=== PATIENT | female | born 1980 | race Caucasian/White ===

== ENCOUNTER 2017-02-05 17:02 | Emergency (ER) | payer BC ==
[2017-02-05 17:14] VITALS: RESP 18
--- NOTE | 2017-02-05 17:56 | ED ---
General Adult HPI - General Chief complaint: Recheck/Abnormal Lab/Rx Stated complaint: Blurred Vision/Weight Loss Time Seen by Provider: 02/05/17 17:48 Source: patient, RN notes reviewed Mode of arrival: ambulatory Limitations: no limitations - History of Present Illness Initial comments: 37-year-old female presents to the emergency department with a chief complaint of hyperglycemia. Patient states her last week she's been drinking a lot of water she's been urinating a lot she's noticed some blurred vision. She states that she went to an urgent care and they found that she had a high glucose and they sent her here. Patient denies any history of diabetes any health concerns any family history of diabetes. Patient states that her vision just seems very blurred and off and she normally has no issues with vision in this happened over the last week and this was very concerning to her. Patient denies any fever chills cough cold. Patient denies any nausea or vomiting. Patient denies any abdominal pain. Patient denies any recent fever, chills, shortness of breath, chest pain, back pain, abdominal pain, nausea vomiting, numbness or tingling, dysuria or hematuria, constipation or diarrhea, headaches or visual changes, or any other current symptoms. - Related Data Previous Rx's Medication Instructions Recorded metFORMIN HCL [Glucophage Xr] 500 mg PO DAILY #10 tab.er.24h 02/05/17 Allergies Allergy/AdvReac Type Severity Reaction Status Date / Time No Known Allergies Allergy Verified 02/05/17 17:30 Review of Systems ROS Statement: Those systems with pertinent positive or pertinent negative responses have been documented in the HPI. ROS Other: All systems not noted in ROS Statement are negative. Past Medical History Past Medical History: No Reported History History of Any Multi-Drug Resistant Organisms: None Reported Past Surgical History: No Surgical Hx Reported Past Psychological History: No Psychological Hx Reported Smoking Status: Never smoker Past Alcohol Use History: None Reported Past Drug Use History: None Reported General Exam Limitations: no limitations General appearance: alert, in no apparent distress Head exam: Present: atraumatic, normocephalic, normal inspection Eye exam: Present: normal appearance, PERRL, EOMI. Absent: scleral icterus, conjunctival injection, periorbital swelling ENT exam: Present: normal exam, mucous membranes moist Neck exam: Present: normal inspection. Absent: tenderness, meningismus, lymphadenopathy Respiratory exam: Present: normal lung sounds bilaterally. Absent: respiratory distress, wheezes, rales, rhonchi, stridor Cardiovascular Exam: Present: regular rate, normal rhythm, normal heart sounds. Absent: systolic murmur, diastolic murmur, rubs, gallop, clicks Extremities exam: Present: normal inspection, full ROM, normal capillary refill. Absent: tenderness, pedal edema, joint swelling, calf tenderness Back exam: Present: normal inspection Neurological exam: Present: alert, oriented X3 Psychiatric exam: Present: normal affect, normal mood Skin exam: Present: warm, dry, intact, normal color. Absent: rash Course Vital Signs 02/05/17 17:09 Temperature 98.5 F Pulse Rate 69 Respiratory 18 Rate Blood Pressure 113/61 O2 Sat by Pulse 100 Oximetry Medical Decision Making - Medical Decision Making 37 yo female presents to the ER with cc of hyperglycemia. This time patient is found to have hyperglycemia. Pending hemoglobin A1c. At this time we discussed the patient does most likely suffer from diabetes. We discussed or blurred vision is most likely due to the elevated glucose that she's had at least the last week if not longer. We did discuss that she needs to follow-up with her family care doctor for continued evaluation to determine type of diabetes and continued treatment for. We will start her on metformin due to age of the patient more suspicion for type 2 diabetes we discussed however this could be type I and swelling to follow-up with determine her continued treatment and care. The patient stated that she understood and she is in agreement this plan. Glucose has come down to 306 here in the emergency department. This time the patient will be discharged. - Lab Data Result diagrams: 02/05/17 19:10 02/05/17 19:10 Lab Results 02/05/17 02/05/17 02/05/17 Range/Units 19:10 19:10 19:10 WBC 6.9 (3.8-10.6) k/uL RBC 4.26 (3.80-5.40) m/uL Hgb 13.1 (11.4-16.0) gm/dL Hct 38.4 (34.0-46.0) % MCV 90.0 (80.0-100.0) fL MCH 30.7 (25.0-35.0) pg MCHC 34.1 (31.0-37.0) g/dL RDW 12.3 (11.5-15.5) % Plt Count 219 (150-450) k/uL Neutrophils % 57 % Lymphocytes % 34 % Monocytes % 5 % Eosinophils % 1 % Basophils % 1 % Neutrophils # 3.9 (1.3-7.7) k/uL Lymphocytes # 2.3 (1.0-4.8) k/uL Monocytes # 0.4 (0-1.0) k/uL Eosinophils # 0.1 (0-0.7) k/uL Basophils # 0.1 (0-0.2) k/uL PT (9.0-12.0) sec INR (<1.2) APTT (22.0-30.0) sec Sodium 132 L (137-145) mmol/L Potassium 4.7 (3.5-5.1) mmol/L Chloride 95 L (98-107) mmol/L Carbon Dioxide 26 (22-30) mmol/L Anion Gap 11 mmol/L BUN 14 (7-17) mg/dL Creatinine 0.80 (0.52-1.04) mg/dL Est GFR (MDRD) Af Amer >60 (>60 ml/min/1.73 sqM) Est GFR (MDRD) Non-Af >60 (>60 ml/min/1.73 sqM) Glucose 467 H* (74-99) mg/dL POC Glucose (mg/dL) (75-99) mg/dL POC Glu Compound Coating Machine Offbearer ID Plasma Lactic Acid Rafael 1.1 (0.7-2.0) mmol/L Calcium 9.8 (8.4-10.2) mg/dL Phosphorus 4.1 (2.5-4.5) mg/dL Magnesium 1.9 (1.6-2.3) mg/dL Total Bilirubin 0.5 (0.2-1.3) mg/dL AST 20 (14-36) U/L ALT 44 (9-52) U/L Alkaline Phosphatase 59 (38-126) U/L Total Protein 6.6 (6.3-8.2) g/dL Albumin 4.0 (3.5-5.0) g/dL Amylase 40 (30-110) U/L Lipase 140 (23-300) U/L Urine Color Urine Appearance (Clear) Urine pH (5.0-8.0) Ur Specific [place] (1.001-1.035) Urine Protein (Negative) Urine Glucose (UA) (Negative) Urine Ketones (Negative) Urine Blood (Negative) Urine Nitrite (Negative) Urine Bilirubin (Negative) Urine Urobilinogen (<2.0) mg/dL Ur Leukocyte Esterase (Negative) Urine HCG, Qual (Not Detectd) Acetone, Qual (Negative) 02/05/17 02/05/17 02/05/17 Range/Units 19:10 19:10 19:17 WBC (3.8-10.6) k/uL RBC (3.80-5.40) m/uL Hgb (11.4-16.0) gm/dL Hct (34.0-46.0) % MCV (80.0-100.0) fL MCH (25.0-35.0) pg MCHC (31.0-37.0) g/dL RDW (11.5-15.5) % Plt Count (150-450) k/uL Neutrophils % % Lymphocytes % % Monocytes % % Eosinophils % % Basophils % % Neutrophils # (1.3-7.7) k/uL Lymphocytes # (1.0-4.8) k/uL Monocytes # (0-1.0) k/uL Eosinophils # (0-0.7) k/uL Basophils # (0-0.2) k/uL PT 9.7 (9.0-12.0) sec INR 0.9 (<1.2) APTT 20.0 L (22.0-30.0) sec Sodium (137-145) mmol/L Potassium (3.5-5.1) mmol/L Chloride (98-107) mmol/L Carbon Dioxide (22-30) mmol/L Anion Gap mmol/L BUN (7-17) mg/dL Creatinine (0.52-1.04) mg/dL Est GFR (MDRD) Af Amer (>60 ml/min/1.73 sqM) Est GFR (MDRD) Non-Af (>60 ml/min/1.73 sqM) Glucose (74-99) mg/dL POC Glucose (mg/dL) (75-99) mg/dL POC Glu Compound Coating Machine Offbearer ID Plasma Lactic Acid Rafael (0.7-2.0) mmol/L Calcium (8.4-10.2) mg/dL Phosphorus (2.5-4.5) mg/dL Magnesium (1.6-2.3) mg/dL Total Bilirubin (0.2-1.3) mg/dL AST (14-36) U/L ALT (9-52) U/L Alkaline Phosphatase (38-126) U/L Total Protein (6.3-8.2) g/dL Albumin (3.5-5.0) g/dL Amylase (30-110) U/L Lipase (23-300) U/L Urine Color Urine Appearance (Clear) Urine pH (5.0-8.0) Ur Specific [place] (1.001-1.035) Urine Protein (Negative) Urine Glucose (UA) (Negative) Urine Ketones (Negative) Urine Blood (Negative) Urine Nitrite (Negative) Urine Bilirubin (Negative) Urine Urobilinogen (<2.0) mg/dL Ur Leukocyte Esterase (Negative) Urine HCG, Qual Not Detected (Not Detectd) Acetone, Qual Negative (Negative) 02/05/17 02/05/17 02/05/17 Range/Units 19:17 19:18 20:31 WBC (3.8-10.6) k/uL RBC (3.80-5.40) m/uL Hgb (11.4-16.0) gm/dL Hct (34.0-46.0) % MCV (80.0-100.0) fL MCH (25.0-35.0) pg MCHC (31.0-37.0) g/dL RDW (11.5-15.5) % Plt Count (150-450) k/uL Neutrophils % % Lymphocytes % % Monocytes % % Eosinophils % % Basophils % % Neutrophils # (1.3-7.7) k/uL Lymphocytes # (1.0-4.8) k/uL Monocytes # (0-1.0) k/uL Eosinophils # (0-0.7) k/uL Basophils # (0-0.2) k/uL PT (9.0-12.0) sec INR (<1.2) APTT (22.0-30.0) sec Sodium (137-145) mmol/L Potassium (3.5-5.1) mmol/L Chloride (98-107) mmol/L Carbon Dioxide (22-30) mmol/L Anion Gap mmol/L BUN (7-17) mg/dL Creatinine (0.52-1.04) mg/dL Est GFR (MDRD) Af Amer (>60 ml/min/1.73 sqM) Est GFR (MDRD) Non-Af (>60 ml/min/1.73 sqM) Glucose (74-99) mg/dL POC Glucose (mg/dL) 437 H 302 H (75-99) mg/dL POC Glu Compound Coating Machine Offbearer ID TeRanda Alaina Plasma Lactic Acid Rafael (0.7-2.0) mmol/L Calcium (8.4-10.2) mg/dL Phosphorus (2.5-4.5) mg/dL Magnesium (1.6-2.3) mg/dL Total Bilirubin (0.2-1.3) mg/dL AST (14-36) U/L ALT (9-52) U/L Alkaline Phosphatase (38-126) U/L Total Protein (6.3-8.2) g/dL Albumin (3.5-5.0) g/dL Amylase (30-110) U/L Lipase (23-300) U/L Urine Color Light Yellow Urine Appearance Clear (Clear) Urine pH 6.0 (5.0-8.0) Ur Specific [place] 1.031 (1.001-1.035) Urine Protein Negative (Negative) Urine Glucose (UA) 4+ H (Negative) Urine Ketones 1+ H (Negative) Urine Blood Negative (Negative) Urine Nitrite Negative (Negative) Urine Bilirubin Negative (Negative) Urine Urobilinogen <2.0 (<2.0) mg/dL Ur Leukocyte Esterase Negative (Negative) Urine HCG, Qual (Not Detectd) Acetone, Qual (Negative) Disposition Clinical Impression: Hyperglycemia, Blurred vision Disposition: HOME SELF-CARE Condition: Stable Instructions: Diabetic Hyperglycemia (ED) Additional Instructions: Please use medication as discussed. Please follow up with family doctor if symptoms have not improved over the next two days. Please return to the emergency room if your symptoms increase or worsen or for any other concerns. Prescriptions: metFORMIN HCL [Glucophage Xr] 500 mg PO DAILY #10 tab.er.24h Referrals: Leslie Carey MD [REFERRING] - 1-2 days Time of Disposition: 21:08
[2017-02-05] MEDS ORDERED: SODIUM CHLORIDE 0.9% 1,000 ML IV STA (17:57)
[2017-02-05 19:19] LABS: Basophils # (A) 0.1 k/uL (0-0.2); Basophils % (A) 1 %; CH 30.5; Eosinophils # (A) 0.1 k/uL (0-0.7); Eosinophils % (A) 1 %; HCT 38.4 % (34.0-46.0); HGB 13.1 gm/dL (11.4-16.0); Luc # (Auto) 0.12; Luc % (Auto) 2; Lymphocytes # (A) 2.3 k/uL (1.0-4.8); Lymphocytes % (A) 34 %; MCH 30.7 pg (25.0-35.0); MCHC 34.1 g/dL (31.0-37.0); Mean Platelet Volume 7.7; Monocytes # (A) 0.4 k/uL (0-1.0); Monocytes % (A) 5 %; Neutrophils # (A) 3.9 k/uL (1.3-7.7); Neutrophils % (A) 57 %; RBC 4.26 m/uL (3.80-5.40); RDW 12.3 % (11.5-15.5); WBC 6.9 k/uL (3.8-10.6); WBC (Perox) 7.44
[2017-02-05 19:23] LABS: Glucose,Whole Blood 437 mg/dL (75-99)
[2017-02-05 19:24] LABS: Appearance,Urine Clear (Clear); Bilirubin,Urine Negative (Negative); Glucose,Urine (UA) 4+ (Negative); Ketones,Urine 1+ (Negative); Leukocyte Esterase,Urine Negative (Negative); Nitrite,Urine Negative (Negative); Protein,Urine Negative (Negative); Specific Gravity,Urine 1.031 (1.001-1.035); UA Billing (MACRO vs. MICRO) CHEM; Urobilinogen,Urine <2.0 mg/dL (<2.0)
[2017-02-05 19:31] LABS: ALT 44 U/L (9-52); AST 20 U/L (14-36); Alkaline Phosphatase 59 U/L (38-126); Amylase 40 U/L (30-110); Anion Gap 11 mmol/L; Blood Urea Nitrogen 14 mg/dL (7-17); Calcium 9.8 mg/dL (8.4-10.2); Carbon Dioxide 26 mmol/L (22-30); Chloride 95 mmol/L (98-107); Magnesium 1.9 mg/dL (1.6-2.3); Non-African American GFR(MDRD) >60 (>60 ml/min/1.73 sqM); Phosphorus 4.1 mg/dL (2.5-4.5); Potassium 4.7 mmol/L (3.5-5.1); Sodium 132 mmol/L (137-145); Total Bilirubin 0.5 mg/dL (0.2-1.3); Total Protein 6.6 g/dL (6.3-8.2)
[2017-02-05 19:35] LABS: Glucose 467 mg/dL (74-99)
[2017-02-05 19:48] LABS: INR 0.9 (<1.2); Prothrombin Time 9.7 sec (9.0-12.0)
[2017-02-05 20:32] LABS: Glucose,Whole Blood 302 mg/dL (75-99)
[2017-02-05] MEDS ORDERED: metFORMIN 500 MG TAB PO STA (21:04)
[2017-02-06 01:10] VITALS: BP 118/60; PULSE 72; TEMP 98
== END 2017-02-05 21:35 | disposition home or self-care (01) ==
LOC: EC 17:02
DX: R73.9 Hyperglycemia, unspecified (principal)
CPT/HCPCS: 36415; 80053; 81003; 81025; 82009; 82150; 83036; 83605; 83690; 83735; 84100; 84681; 85025; 85610; 85730; 96360; 96361; 99283

== ENCOUNTER 2017-07-08 15:21 | Emergency (ER) | payer BC ==
[2017-07-08] MEDS ORDERED: TETRACAINE 0.5% OPHTH (PF) DROPS 4 ML BTL BOTH EYES STA (16:39)
[2017-07-08 17:32] LABS: Anion Gap 13 mmol/L; Blood Urea Nitrogen 23 mg/dL (7-17); Calcium 9.9 mg/dL (8.4-10.2); Carbon Dioxide 27 mmol/L (22-30); Chloride 102 mmol/L (98-107); Glucose 149 mg/dL (74-99); Potassium 4.6 mmol/L (3.5-5.1); Sodium 142 mmol/L (137-145)
[2017-07-08] MEDS ORDERED: INSULIN REGULAR 100 UNIT/ML VIAL SQ ONE (17:32)
--- NOTE | 2017-07-08 17:41 | ED ---
Eye Problem HPI - General Chief complaint: Eye Problems Stated complaint: blurry vision/diabetic Time Seen by Provider: 07/08/17 16:25 Source: patient Mode of arrival: ambulatory Limitations: no limitations - History of Present Illness Initial comments: 37-year-old female presenting with 5 days of third vision. Patient states it is been eating progressively worse the point that she is unable to read anything in front of her. She denies any headache, nausea vomiting, chest pain , diarrhea. Denies any focal weakness. Denies any fevers chills. Denies any thing like this happening before. Patient states she has a history of type 1 diabetes and that her sugars have been running high 300s this week. She states when her sugars get lower than 300 her eyesight worsens. She denies one eye being worse than other. Patient states she called primary care physician who instructed her to come to the emergency department. Denies any pain in her eyes. Denies trauma. - Related Data Home Medications Medication Instructions Recorded Confirmed HYDROcodone/APAP 5-325MG [[place] 1 - 2 tab PO HS PRN 07/08/17 07/08/17 5-325] Ibuprofen [Motrin] 800 mg PO TID PRN 07/08/17 07/08/17 Insulin Aspart [NovoLOG 5 - 10 unit SQ AC-TID 07/08/17 07/08/17 (formulary)] Insulin Glargine [Lantus] 45 unit SQ HS 07/08/17 07/08/17 Allergies Allergy/AdvReac Type Severity Reaction Status Date / Time No Known Allergies Allergy Verified 07/08/17 16:33 Review of Systems ROS Statement: Those systems with pertinent positive or pertinent negative responses have been documented in the HPI. Review of Systems Constitutional: Denies fever, chills Eyes: Positive change in vision, Denies pain Ears, nose, mouth, throat: Denies headaches, Denies sore throat Cardiovascular: Denies chest pain. Denies palpitations Respiratory: Denies shortness of breath, Denies cough Gastrointestinal: Denies abdominal pain. Denies nausea, vomiting, diarrhea. Genitourinary: Denies hematuria, Denies infections Musculoskeletal: Denies pain, Denies swelling Integumentary: Denies rash Neurological: Denies headache, focal weakness, focal numbness Psychiatric: Denies anxiety, Denies depression Hematologic/Lymphatic: Denies easy bleeding or bruising ROS Other: All systems not noted in ROS Statement are negative. 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 Atraumatic Eyes: PERRL. EOMI. No scleral icterus. No injected conjunctiva. Visual acuity: 20/40 (B/L. Right. Left). Visual pascal intact. IOP 15-right. 14-left. Neck: Full ROM Chest/Lungs: Clear to auscultation bilaterally. No wheezing, rhonchi, or rales Cardiac: Regular rate, rhythm. No murmurs or rubs Abdomen/GI: Soft, nontender, nondistended. No rebound, guarding, or rigidity. Musculoskeletal: Full ROM Skin: Warm, dry, intact Neurologic: A/Ox3, no weakness, no sensory deficit, no abnormal gait, no coordination deficit Limitations: no limitations Course Vital Signs 07/08/17 07/08/17 15:26 17:02 Temperature 98.0 F Pulse Rate 80 Respiratory 20 18 Rate Blood Pressure 110/63 O2 Sat by Pulse 98 Oximetry Medical Decision Making - Medical Decision Making 37 year old female presenting with worsening blurred vision. Initial exam the patient is awake, alert, no acute distress. VSS. bedside ocular ultrasound showed no evidence of retinal detachment or increased optic nerve diameter. CT head negative. BMP unremarkable. Spoke with Dr. Newby who states the patient can see him tomorrow in office. He will be in the [place] office in the morning and the [place] office in the afternoon. No further emergent workup is indicated. Discussed with patient who is agreeable to plan. She is currently stable for discharge and outpatient follow up. - Lab Data Result diagrams: 07/08/17 17:00 Lab Results 07/08/17 07/08/17 Range/Units 17:00 17:00 Sodium 142 (137-145) mmol/L Potassium 4.6 (3.5-5.1) mmol/L Chloride 102 (98-107) mmol/L Carbon Dioxide 27 (22-30) mmol/L Anion Gap 13 mmol/L BUN 23 H (7-17) mg/dL Creatinine 0.70 (0.52-1.04) mg/dL Est GFR (CKD-EPI)AfAm >90 (>60 ml/min/1.73 sqM) Est GFR (CKD-EPI)NonAf >90 (>60 ml/min/1.73 sqM) Glucose 149 H (74-99) mg/dL Calcium 9.9 (8.4-10.2) mg/dL HCG, Qual Not Detected Disposition Clinical Impression: Vision blurred Disposition: HOME SELF-CARE Condition: Good Additional Instructions: Dr. Newby-In this office in the morning Address: [address] [place] [id number] Hours:Opens 8:30AM Fri Dr. Newby-In this office in the afternoon Address: [address] [place] [id number] Hours:Opens 8AM Fri Is patient prescribed a controlled substance at d/c from ED?: No Referrals: Marcos Pittman DO [Primary Care Provider] - 1-2 days Solis Newby MD [STAFF PHYSICIAN] - 1-2 days
--- NOTE | 2017-07-08 19:15 | CT ---
EXAMINATION TYPE: CT brain wo con DATE OF EXAM: 07/08/2017 COMPARISON: NONE HISTORY: Blurry vision CT DLP: 820.7 mGycm. Automated Exposure Control for Dose Reduction was Utilized. TECHNIQUE: CT scan of the head is performed without contrast. FINDINGS: There is no acute intracranial hemorrhage, mass effect, or midline shift identified. The ventricles and sulci are within normal limits in size. The globes are intact and the visualized sin uses are clear. No flattening of the globes is seen posteriorly. No transtentorial or uncal herniatio n. No discrete pituitary mass impressing upon the optic chiasm. The globes are symmetric. IMPRESSION: 1. No acute intracranial process. 2. No CT evidence of intracranial hypertension or hypotension although this finding is better assesse d with MRI in this patient with papilledema.
[2017-07-08 20:13] VITALS: BP 127/80; PULSE 68; RESP 16; TEMP 98.4
== END 2017-07-08 20:00 | disposition home or self-care (01) ==
LOC: EC 15:21
DX: H53.8 Other visual disturbances (principal); E10.9 Type 1 diabetes mellitus without complications; Z79.4 Long term (current) use of insulin
CPT/HCPCS: 36415; 70450; 80048; 84703; 99284

== ENCOUNTER 2020-04-25 08:33 | Inpatient (IN) | payer BC ==
[2020-04-25] MEDS ORDERED: INSULIN REGULAR BOLUS (FROM DRIP BAG) IV ONE (08:36)
[2020-04-25] MEDS ORDERED: Potassium Replacement Protocol 1 EACH MISC MISCELLANE PRN (08:36)
[2020-04-25] MEDS ORDERED: Magnesium Replacement Protocol 1 EACH MISC MISCELLANE PRN (08:36)
[2020-04-25] MEDS ORDERED: SODIUM CHLORIDE 0.9% 2,000 ML IV ONE (08:38)
[2020-04-25] MEDS: SODIUM CHLORIDE 0.9% 1,000 ML IV SCH ×2 (08:57→15:33)
[2020-04-25 09:04] LABS: HCT 51.2 % (34.0-46.0); HGB 14.8 gm/dL (11.4-16.0); Hypochromasia Marked; MCHC 28.9 g/dL (31.0-37.0); MCV 117.6 fL (80.0-100.0); Macrocytosis Marked; Mean Platelet Volume 8.3; Platelet Count 294 k/uL (150-450); RBC 4.35 m/uL (3.80-5.40); RDW 12.6 % (11.5-15.5); WBC 15.7 k/uL (3.8-10.6)
--- NOTE | 2020-04-25 09:06 | ED ---
General Adult HPI - General Chief complaint: Altered Mental Status Stated complaint: DKA Time Seen by Provider: 04/25/20 08:33 Source: patient, EMS, RN notes reviewed, old records reviewed Mode of arrival: EMS Limitations: altered mental status, physical limitation - History of Present Illness Initial comments: This is a 40-year-old female who is a known diabetic. Patient's family had not heard from her chest for 2 days so they went over to check on her and she was completely unresponsive according to EMS when they arrived she was only responsive to painful stimuli with some groaning and moaning. Patient's heart rate was bradycardic in the 40s and no trauma was noted and it did not appear the patient had any trauma. According to EMS the blood sugar read high on their monitor and the patient felt extremely cold. Patient's blood pressure was normal on the way in. At this point time there is no further history is available. - Related Data Home Medications Medication Instructions Recorded Confirmed Insulin Glargine,Hum.rec.anlog 40 units SQ HS 04/25/20 04/25/20 [Asad Ta] Allergies Allergy/AdvReac Type Severity Reaction Status Date / Time No Known Allergies Allergy Verified 04/25/20 08:48 Review of Systems ROS Statement: Those systems with pertinent positive or pertinent negative responses have been documented in the HPI. ROS Other: All systems not noted in ROS Statement are negative. 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, wisdom teeth Past Psychological History: No Psychological Hx Reported Past Alcohol Use History: None Reported Past Drug Use History: None Reported - Past Family History Father Family Medical History: No Reported History Additional Family Medical History / Comment(s): Father is healthy Mother Family Medical History: No Reported History Additional Family Medical History / Comment(s): Mother is healthy General Exam - General Exam Comments Initial Comments: GENERAL: Patient is well-developed and well-nourished. Patient is only responsive with a groan to painful stimuli. ENT: Neck is soft and supple. No significant lymphadenopathy is noted. Oropharynx is clear. Moist mucous membranes. Neck has full range of motion without eliciting any pain. EYES: The sclera were anicteric and conjunctiva were pink and moist. Extraocular movements were intact and pupils were equal round and reactive to light. Eyelids were unremarkable. PULMONARY: Unlabored respirations. Good breath sounds bilaterally. No audible rales rhonchi or wheezing was noted. CARDIOVASCULAR: Patient is bradycardic at about 45 beats a minute Femoral pulses are equal bilaterally ABDOMEN: Soft and nontender with normal bowel sounds. SKIN: Skin is clear with no lesions or rashes and otherwise unremarkable. NEUROLOGIC: Patient is unresponsive except to painful stimuli and she only responds with the ground. Unable to do further neurologic assessment MUSCULOSKELETAL: Normal extremities with adequate strength and full range of motion. No lower extremity swelling or edema. No calf tenderness. LYMPHATICS: No significant lymphadenopathy is noted PSYCHIATRIC: Unable to assess Limitations: altered mental status, physical limitation Course Vital Signs 04/25/20 04/25/20 04/25/20 08:36 08:48 09:00 Temperature 84.6 F L 83.5 F L Pulse Rate 47 L 51 L 53 L Respiratory 26 H 26 H Rate Blood Pressure 126/76 74/38 73/32 O2 Sat by Pulse 96 Oximetry 04/25/20 04/25/20 04/25/20 09:01 09:14 09:23 Temperature 85.3 F L Pulse Rate 62 Respiratory 28 H 24 Rate Blood Pressure 79/40 83/52 O2 Sat by Pulse 98 Oximetry 04/25/20 04/25/20 04/25/20 09:30 09:50 10:10 Temperature 85.5 F L 86.0 F L 87.1 F L Pulse Rate 65 62 60 Respiratory 16 Rate Blood Pressure 107/62 88/53 85/56 O2 Sat by Pulse Oximetry 04/25/20 04/25/20 04/25/20 10:31 11:00 11:51 Temperature 88.2 F L 90.3 F L 93.9 F L Pulse Rate 61 67 75 Respiratory 20 20 16 Rate Blood Pressure 93/59 93/58 89/53 O2 Sat by Pulse 99 99 99 Oximetry 04/25/20 04/25/20 04/25/20 12:15 12:33 12:52 Temperature 95.5 F L 96.8 F L 97.7 F Pulse Rate 80 80 80 Respiratory 18 18 18 Rate Blood Pressure 85/44 84/42 86/45 O2 Sat by Pulse 100 100 Oximetry 04/25/20 13:26 Temperature 98.6 F Pulse Rate 90 Respiratory 18 Rate Blood Pressure 84/45 O2 Sat by Pulse 100 Oximetry Procedures - Intubation Sedative: Versed Paralytic: Succinylcholine Laryngoscope: Veliz Size: 3 ET Tube Size: 7.5 ET Tube Uncuffed: No Tube Secured Location: teeth Tube Placement Confirmation: visualized tube passing through cords, equal breath sounds bilaterally, no breath sounds over epigastrium, confirmation by capnometry Intubation Complications: none Medical Decision Making - Medical Decision Making EKG shows sinus bradycardia at 40 bpm TX interval is 202 QRS is 152 QTC intervals 554 QTC is 494. Patient has some slight ST segment elevation in inferior leads as well as precordial leads V4 through V6 indicative of Justin waves CT of the brain shows no acute normalities. Chest x-ray shows no acute abnormality however it does show good placement of ET tube and the OG tube needs to be pushed in a little further. There is intubated the patient Patient was given 3 L of fluid started on an insulin drip after a bolus of insulin. Patient was also given bicarb, bicarb drip. Patient is given tells and chloride for the high potassium. Patient was placed on a warming blanket with a bear hugger and given warm fluids and put on warm air from the ventilator. I spoke with Dr. Carver he agreed to admit the patient admitted the patient I wrote admitting orders. I spoke with Dr. Zelaya he agreed to admit the patient admitted the patient to the ICU - Lab Data Result diagrams: 04/27/20 04:44 04/27/20 04:44 Lab Results 04/25/20 04/25/20 04/25/20 Range/Units 08:47 08:47 08:47 WBC 15.7 H (3.8-10.6) k/uL RBC 4.35 (3.80-5.40) m/uL Hgb 14.8 (11.4-16.0) gm/dL Hct 51.2 H (34.0-46.0) % MCV 117.6 H (80.0-100.0) fL MCH 34.0 (25.0-35.0) pg MCHC 28.9 L (31.0-37.0) g/dL RDW 12.6 (11.5-15.5) % Plt Count 294 (150-450) k/uL MPV 8.3 Neutrophils % Not Reportable Neutrophils % (Manual) 75 % Band Neuts % (Manual) 3 % Lymphocytes % Not Reportable Lymphocytes % (Manual) 14 % Monocytes % Not Reportable Monocytes % (Manual) 8 % Eosinophils % Not Reportable Basophils % Not Reportable Metamyelocytes % 1 % Neutrophils # Not Reportable Neutrophils # (Manual) 12.20 H (1.3-7.7) k/uL Lymphocytes # Not Reportable Lymphocytes # (Manual) 2.20 (1.0-4.8) k/uL Monocytes # Not Reportable Monocytes # (Manual) 1.26 H (0-1.0) k/uL Eosinophils # Not Reportable Basophils # Not Reportable Metamyelocytes # (Man) 0.16 H (0) k/uL Nucleated RBCs 0 (0-0) /100 WBC Manual Slide Review Performed Hypochromasia Marked Macrocytosis Marked A Sample Site ABG pH (7.35-7.45) ABG pCO2 (35-45) mmHg ABG pO2 (83-108) mmHg ABG HCO3 (21-25) mmol/L ABG Total CO2 (19-24) mmol/L ABG O2 Saturation (94-97) % ABG Base Excess mmol/L Chapo Test VBG pH 6.54 L* (7.31-7.41) VBG pCO2 32 L (37-51) mmHg VBG HCO3 3 L* (24-28) mmol/L FiO2 % Sodium 129 L (137-145) mmol/L Potassium 8.0 H* (3.5-5.1) mmol/L Chloride 104 (98-107) mmol/L Carbon Dioxide <5 L* (22-30) mmol/L Anion Gap mmol/L BUN 51 H (7-17) mg/dL Creatinine 4.05 H (0.52-1.04) mg/dL Est GFR (CKD-EPI)AfAm 15 (>60 ml/min/1.73 sqM) Est GFR (CKD-EPI)NonAf 13 (>60 ml/min/1.73 sqM) Glucose 1234 H* (74-99) mg/dL POC Glucose (mg/dL) (75-99) mg/dL POC Glu Reproducer ID Urine Color Urine Appearance (Clear) Urine pH (5.0-8.0) Ur Specific [place] (1.001-1.035) Urine Protein (Negative) Urine Glucose (UA) (Negative) Urine Ketones (Negative) Urine Blood (Negative) Urine Nitrite (Negative) Urine Bilirubin (Negative) Urine Urobilinogen (<2.0) mg/dL Ur Leukocyte Esterase (Negative) Urine RBC (0-5) /hpf Urine WBC (0-5) /hpf Ur Squamous Epith Cells (0-4) /hpf Urine Mucus (None) /hpf Acetone, Qual Positive (Negative) 04/25/20 04/25/20 04/25/20 Range/Units 09:09 09:15 10:01 WBC (3.8-10.6) k/uL RBC (3.80-5.40) m/uL Hgb (11.4-16.0) gm/dL Hct (34.0-46.0) % MCV (80.0-100.0) fL MCH (25.0-35.0) pg MCHC (31.0-37.0) g/dL RDW (11.5-15.5) % Plt Count (150-450) k/uL MPV Neutrophils % Neutrophils % (Manual) % Band Neuts % (Manual) % Lymphocytes % Lymphocytes % (Manual) % Monocytes % Monocytes % (Manual) % Eosinophils % Basophils % Metamyelocytes % % Neutrophils # Neutrophils # (Manual) (1.3-7.7) k/uL Lymphocytes # Lymphocytes # (Manual) (1.0-4.8) k/uL Monocytes # Monocytes # (Manual) (0-1.0) k/uL Eosinophils # Basophils # Metamyelocytes # (Man) (0) k/uL Nucleated RBCs (0-0) /100 WBC Manual Slide Review Hypochromasia Macrocytosis Sample Site rrad rrad ABG pH <6.80 L* <6.80 L* (7.35-7.45) ABG pCO2 <15 L* 20 L (35-45) mmHg ABG pO2 193 H >400 H (83-108) mmHg ABG HCO3 2 L* (21-25) mmol/L ABG Total CO2 3 L (19-24) mmol/L ABG O2 Saturation 98.9 H 100.0 H (94-97) % ABG Base Excess -34.0 mmol/L Chapo Test Yes VBG pH (7.31-7.41) VBG pCO2 (37-51) mmHg VBG HCO3 (24-28) mmol/L FiO2 28 100 % Sodium (137-145) mmol/L Potassium (3.5-5.1) mmol/L Chloride (98-107) mmol/L Carbon Dioxide (22-30) mmol/L Anion Gap mmol/L BUN (7-17) mg/dL Creatinine (0.52-1.04) mg/dL Est GFR (CKD-EPI)AfAm (>60 ml/min/1.73 sqM) Est GFR (CKD-EPI)NonAf (>60 ml/min/1.73 sqM) Glucose (74-99) mg/dL POC Glucose (mg/dL) (75-99) mg/dL POC Glu Reproducer ID Urine Color Light Yellow Urine Appearance Clear (Clear) Urine pH 6.5 (5.0-8.0) Ur Specific [place] 1.016 (1.001-1.035) Urine Protein 2+ H (Negative) Urine Glucose (UA) 4+ H (Negative) Urine Ketones 2+ H (Negative) Urine Blood Small H (Negative) Urine Nitrite Negative (Negative) Urine Bilirubin Negative (Negative) Urine Urobilinogen <2.0 (<2.0) mg/dL Ur Leukocyte Esterase Negative (Negative) Urine RBC <1 (0-5) /hpf Urine WBC 1 (0-5) /hpf Ur Squamous Epith Cells <1 (0-4) /hpf Urine Mucus Rare H (None) /hpf Acetone, Qual (Negative) 04/25/20 04/25/20 04/25/20 Range/Units 10:06 11:03 12:01 WBC (3.8-10.6) k/uL RBC (3.80-5.40) m/uL Hgb (11.4-16.0) gm/dL Hct (34.0-46.0) % MCV (80.0-100.0) fL MCH (25.0-35.0) pg MCHC (31.0-37.0) g/dL RDW (11.5-15.5) % Plt Count (150-450) k/uL MPV Neutrophils % Neutrophils % (Manual) % Band Neuts % (Manual) % Lymphocytes % Lymphocytes % (Manual) % Monocytes % Monocytes % (Manual) % Eosinophils % Basophils % Metamyelocytes % % Neutrophils # Neutrophils # (Manual) (1.3-7.7) k/uL Lymphocytes # Lymphocytes # (Manual) (1.0-4.8) k/uL Monocytes # Monocytes # (Manual) (0-1.0) k/uL Eosinophils # Basophils # Metamyelocytes # (Man) (0) k/uL Nucleated RBCs (0-0) /100 WBC Manual Slide Review Hypochromasia Macrocytosis Sample Site ABG pH (7.35-7.45) ABG pCO2 (35-45) mmHg ABG pO2 (83-108) mmHg ABG HCO3 (21-25) mmol/L ABG Total CO2 (19-24) mmol/L ABG O2 Saturation (94-97) % ABG Base Excess mmol/L Chapo Test VBG pH (7.31-7.41) VBG pCO2 (37-51) mmHg VBG HCO3 (24-28) mmol/L FiO2 % Sodium (137-145) mmol/L Potassium (3.5-5.1) mmol/L Chloride (98-107) mmol/L Carbon Dioxide (22-30) mmol/L Anion Gap mmol/L BUN (7-17) mg/dL Creatinine (0.52-1.04) mg/dL Est GFR (CKD-EPI)AfAm (>60 ml/min/1.73 sqM) Est GFR (CKD-EPI)NonAf (>60 ml/min/1.73 sqM) Glucose (74-99) mg/dL POC Glucose (mg/dL) >600 H >600 H >600 H (75-99) mg/dL POC Glu Reproducer MILI Ambriz II, Marco A Ambriz II, Arabella Lao Urine Color Urine Appearance (Clear) Urine pH (5.0-8.0) Ur Specific [place] (1.001-1.035) Urine Protein (Negative) Urine Glucose (UA) (Negative) Urine Ketones (Negative) Urine Blood (Negative) Urine Nitrite (Negative) Urine Bilirubin (Negative) Urine Urobilinogen (<2.0) mg/dL Ur Leukocyte Esterase (Negative) Urine RBC (0-5) /hpf Urine WBC (0-5) /hpf Ur Squamous Epith Cells (0-4) /hpf Urine Mucus (None) /hpf Acetone, Qual (Negative) Critical Care Time Critical Care Time: Yes Total Critical Care Time: 45 Disposition Clinical Impression: DKA (diabetic ketoacidoses), Altered mental status, Metabolic acidosis, Hyperkalemia, Hypothermia, Acute renal failure Disposition: ADMITTED IP TO THIS [facility] Time of Disposition: 12:05
[2020-04-25 09:11] LABS: ABG Oxygen Saturation 98.9 % (94-97); ABG PO2 193 mmHg (83-108); Allen Test Performed? Yes
[2020-04-25 09:12] LABS: VBG PH 6.54 (7.31-7.41)
[2020-04-25 09:14] LABS: African American GFR (CKD) 15 (>60 ml/min/1.73 sqM); Blood Urea Nitrogen 51 mg/dL (7-17); Chloride 104 mmol/L (98-107); Non-African American GFR(CKD) 13 (>60 ml/min/1.73 sqM); Sodium 129 mmol/L (137-145)
[2020-04-25 09:17] LABS: ABG PH <6.80 (7.35-7.45)
[2020-04-25 09:18] LABS: ABG PCO2 <15 mmHg (35-45)
[2020-04-25 09:23] LABS: Appearance,Urine Clear (Clear); Bilirubin,Urine Negative (Negative); Blood,Urine Small (Negative); Color,Urine Light Yellow; Glucose,Urine (UA) 4+ (Negative); Leukocyte Esterase,Urine Negative (Negative); Mucus,Urine Rare /hpf; Nitrite,Urine Negative (Negative); PH, Urine 6.5 (5.0-8.0); Protein,Urine 2+ (Negative); RBC,Urine <1 /hpf (0-5); Specific Gravity,Urine 1.016 (1.001-1.035); Squamous Epithelial Cell,Urine <1 /hpf (0-4); Urobilinogen,Urine <2.0 mg/dL (<2.0); WBC,Urine 1 /hpf (0-5)
[2020-04-25] MEDS: INSULIN REGULAR 100 UNIT in SODIUM CHLORIDE 0.9% 100 ML IV SCH (09:24)
[2020-04-25 09:27] LABS: Ketones,Urine 2+ (Negative)
[2020-04-25] MEDS ORDERED: SODIUM BICARB 8.4% 50 ML SYR (1 MEQ/ML) IV STA ×3 (09:29→17:41)
--- NOTE | 2020-04-25 09:29 | CT ---
EXAMINATION TYPE: CT brain wo con DATE OF EXAM: 04/25/2020 COMPARISON: 07/08/17 HISTORY: altered mental status CT DLP: 1088.[address] of the brain was performed. The ventricles, basal cisterns and sulci overlying the cerebral convexities demonstrate a normal appe arance. There is no evidence for intracranial hemorrhage or sulcal effacement. No mass effects are seen. Osseous calvarium is intact. If symptoms persist consider MRI as clinically warranted. IMPRESSION: 1. No acute intracranial process is seen at this time.
[2020-04-25] MEDS ORDERED: MIDAZOLAM 1 MG/ML 5 ML VIAL IV STA (09:44)
[2020-04-25] MEDS ORDERED: SUCCINYLCHOLINE CHLORIDE VIAL 200 MG/10 ML VIAL IV STA (09:44)
[2020-04-25 09:46] LABS: Band Neutrophils % 3 %; Carbon Dioxide <5 mmol/L (22-30); Glucose 1234 mg/dL (74-99); Metamyelocytes # (M) 0.16 k/uL (0); Metamyelocytes % 1 %; Monocytes # (M) 1.26 k/uL (0-1.0); Neutrophils % (M) 75 %; Nucleated Red Blood Cells 0 /100 WBC (0-0); Total Cells Counted 200
[2020-04-25] MEDS ORDERED: CALCIUM CHLORIDE 100 MG/ML 10 ML SYRINGE IVP STA (09:50)
[2020-04-25] MEDS ORDERED: SODIUM CHLORIDE 0.9% 1,000 ML IV ONE ×2 (10:00→12:08)
[2020-04-25 10:08] LABS: Glucose,Whole Blood >600 mg/dL (75-99)
[2020-04-25] MEDS: SOD BICARB IV ONE ×4 (10:27→17:40)
[2020-04-25] MEDS: NACL IV ONE ×4 (10:27→17:40)
[2020-04-25] MEDS: DEXTROSE IV ONE ×4 (10:27→17:40)
--- NOTE | 2020-04-25 10:34 | XR ---
EXAMINATION TYPE: XR chest 1V portable DATE OF EXAM: 04/25/2020 Comparison: None Clinical History: 40-year-old female post intubation Findings: NG tube tip is 1.9 cm from the hany. NG tube courses below the diaphragm. The NG tube sidehole is a nacho the GE junction.. Heart normal size. Mild interstitial prominence in part be technical. No conso lidation or pleural effusion seen. Impression: 1. NG tube tip 1.9 cm from the hany. Pull back 1.5 cm and reassess at follow-up. 2. NG tube sidehole above the GE junction. Advanced by at least 6 cm further into the stomach. 3. Interstitial prominence may in part be technical. Correlate for possible bronchitis or chronic ast hma.
[2020-04-25 11:03] LABS: ABG PCO2 20 mmHg (35-45); ABG PO2 >400 mmHg (83-108); ABG TCO2 3 mmol/L (19-24)
[2020-04-25 11:05] LABS: Glucose,Whole Blood >600 mg/dL (75-99)
[2020-04-25 11:11] LABS: ABG HCO3 2 mmol/L (21-25); ABG PH <6.80 (7.35-7.45)
[2020-04-25] MEDS ORDERED: NALOXONE 0.4 MG/ML 1 ML VIAL IV PRN (12:05)
[2020-04-25 12:08] LABS: Glucose,Whole Blood >600 mg/dL (75-99)
[2020-04-25] MEDS ORDERED: LORazepam 2 MG/ML INJ IV STA (12:08)
[2020-04-25 13:13] LABS: Glucose,Whole Blood >600 mg/dL (75-99)
[2020-04-25 13:29] LABS: African American GFR (CKD) 19 (>60 ml/min/1.73 sqM); Blood Urea Nitrogen 50 mg/dL (7-17); Chloride 117 mmol/L (98-107); Non-African American GFR(CKD) 17 (>60 ml/min/1.73 sqM); Potassium 4.3 mmol/L (3.5-5.1); Sodium 137 mmol/L (137-145)
[2020-04-25 13:38] LABS: Glucose,Whole Blood >600 mg/dL (75-99)
[2020-04-25 13:51] LABS: Carbon Dioxide <5 mmol/L (22-30); Glucose 903 mg/dL (74-99)
[2020-04-25] MEDS ORDERED: propofoL 50 ML IV ONE (14:00)
[2020-04-25] MEDS ORDERED: NOREPINEPHRIN 4 MG-0.9% NS PMX 4 MG/250 ML ML IV ONE (14:01)
[2020-04-25 14:39] LABS: ABG PO2 212 mmHg (83-108); ABG TCO2 4 mmol/L (19-24); Allen Test Performed? Yes
[2020-04-25 14:42] LABS: ABG PCO2 17 mmHg (35-45); ABG PH 6.88 (7.35-7.45)
[2020-04-25 14:43] LABS: ABG HCO3 3 mmol/L (21-25)
[2020-04-25 14:44] LABS: ABG Base Excess -30.1 mmol/L
[2020-04-25] MEDS ORDERED: ENOXAPARIN 30 MG/0.3 ML SYRINGE SQ SCH (14:45)
[2020-04-25 15:13] LABS: African American GFR (CKD) 19 (>60 ml/min/1.73 sqM); Blood Urea Nitrogen 50 mg/dL (7-17); Chloride 119 mmol/L (98-107); Non-African American GFR(CKD) 16 (>60 ml/min/1.73 sqM); Phosphorus 1.4 mg/dL (2.5-4.5); Potassium 2.8 mmol/L (3.5-5.1); Sodium 139 mmol/L (137-145)
--- NOTE | 2020-04-25 15:14 | P.CNPUL ---
History of Present Illness Consult date: 04/25/20 Requesting physician: Rishabh Lynne Reason for consult: other Chief complaint: Altered mental status, DKA History of present illness: 40-year-old female patient with past history of diabetes mellitus type 1, who was brought into the hospital on 04/25/2020 per EMS for evaluation of altered mental status. The patient is a schoolteacher, she lives by herself, and there were 2 snow days related to the weather. Today patient did not show up for work and the patient's family had not heard from the patient for 2 days and that when they went over to check on her patient was only responsive to painful stimuli and was just moaning and groaning. She was bradycardic when EMS arrived with heart rate in the 40s. There was no evidence of any traumatic injury. Blood sugar was checked at the scene and was too high for a read on the glucometer and patient was very cold. Blood pressure was within normal limits. Patient was extremely hypothermic, she had possibly been in bed for the last 48 hours. Blood gas was obtained in the emergency department showing pH of less than 6.8, pCO2 of 20, pO2 of greater than 400, and bicarbonate concentration of 2 this was done on FiO2 100%. BMP revealed potassium of 8, bicarbonate concentration of less than 5, glucose was 1234, BUN was 51 and creatinine was 4.05. Urinalysis showed 4+ glucose, 2+ proteins, 2+ ketones, serum acetone was positive. White blood cell count was 15.7, hemoglobin is 14.8, hematocrit was 51.2, with MCV of 117, and marked macrocytosis. Coronavirus PCR was negative. Patient was given a total of 4 L in fluid boluses, was started on insulin infusion per DKA protocol, she received 1 amp of sodium bicarbonate and was started on D5 half-normal saline with 3 A of bicarb at 200 ML per hour. Patient was intubated and placed on mechanical ventilator. Current vent settings are assist control mode of ventilation with a rate of 20, tidal lines 450, FiO2 of 40% and PEEP of 5. Brain CT showed no acute intracranial process. Chest x-ray showed mild interstitial prominence, no consolidation or pleural effusion, ET tube was noted to be 1.9 cm from the hany. NG-tube was inserted and was noted to be above the GE junction with the recommendation to advanced at 6 cm further into the stomach. Patient was hypothermic with a temp of 84.6 on arrival, hypotensive, she is receiving fluid boluses. She continues on bicarbonate drip at 200 ML per hour, however her blood pressure is still low in the 80s over 40s, patient is not on any sedation, she is unresponsive. Her temperature has improved, last rectal temp is 98.6F. Recheck blood work was obtained showing potassium of 4.3, sodium is 137, bicarbonate concentration is less than 5, BUN is 50, creatinine is 3.32, GFR is 17, glucose is 903, blood gas showed pO2 of 212, pCO2 of 17, and pH of 6.88. Review of Systems All systems: negative Constitutional: Denies chills, Denies fever Eyes: denies blurred vision, denies pain Ears, nose, mouth and throat: Denies headache, Denies sore throat Cardiovascular: Denies chest pain, Denies shortness of breath Respiratory: Denies cough Gastrointestinal: Denies abdominal pain, Denies diarrhea, Denies nausea, Denies vomiting Genitourinary: Denies dysuria, Denies hematuria Musculoskeletal: Denies myalgias Integumentary: Denies pruritus, Denies rash Neurological: Reports change in mentation, Denies numbness, Denies weakness Psychiatric: Denies anxiety, Denies depression Endocrine: Denies fatigue, Denies weight change 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, wisdom teeth Past Psychological History: No Psychological Hx Reported Past Alcohol Use History: None Reported Past Drug Use History: None Reported - Past Family History Father Family Medical History: No Reported History Additional Family Medical History / Comment(s): Father is healthy Mother Family Medical History: No Reported History Additional Family Medical History / Comment(s): Mother is healthy Medications and Allergies Home Medications Medication Instructions Recorded Confirmed Type Insulin Glargine,Hum.rec.anlog 40 units SQ HS 04/25/20 04/25/20 History [Asad Ta] Allergies Allergy/AdvReac Type Severity Reaction Status Date / Time No Known Allergies Allergy Verified 04/25/20 08:48 Physical Exam Vitals: Vital Signs Temp Pulse Resp BP Pulse Ox 04/25/20 12:52 97.7 F 80 18 86/45 100 04/25/20 12:33 96.8 F L 80 18 84/42 04/25/20 12:15 95.5 F L 80 18 85/44 100 04/25/20 11:51 93.9 F L 75 16 89/53 99 04/25/20 11:00 90.3 F L 67 20 93/58 99 04/25/20 10:31 88.2 F L 61 20 93/59 99 04/25/20 10:10 87.1 F L 60 85/56 04/25/20 09:50 86.0 F L 62 16 88/53 04/25/20 09:30 85.5 F L 65 107/62 04/25/20 09:23 85.3 F L 62 24 83/52 98 04/25/20 09:14 79/40 04/25/20 09:01 28 H 04/25/20 09:00 83.5 F L 53 L 26 H 73/32 96 04/25/20 08:48 51 L 74/38 04/25/20 08:36 84.6 F L 47 L 26 H 126/76 Intake and Output 04/24/20 04/25/20 04/25/20 22:59 06:59 14:59 Other: Weight 64.2 kg GENERAL EXAM: Intubated, unresponsive 40-year-old white female, comfortable in no apparent distress. HEAD: Normocephalic/atraumatic. EYES: Normal reaction of pupils, equal size. Conjunctiva pink, sclera white. NOSE: Clear with pink turbinates. THROAT: No erythema or exudates. NECK: No masses, no JVD, no thyroid enlargement, no adenopathy. Patient has a rash on the back of her neck, red, blanchable, papular rash, with clearly defined margins CHEST: No chest wall deformity. Symmetrical expansion. LUNGS: Equal air entry with no crackles, wheeze, rhonchi or dullness. CVS: Regular rate and rhythm, normal S1 and S2, no gallops, no murmurs, no rubs ABDOMEN: Soft, nontender. No hepatosplenomegaly, normal bowel sounds, no guarding or rigidity. EXTREMITIES: No clubbing, no edema, no cyanosis, 2+ pulses and upper and lower extremities. MUSCULOSKELETAL: Muscle strength and tone normal. SPINE: No scoliosis or deformity SKIN: No rashes CENTRAL NERVOUS SYSTEM: Unresponsive No focal deficits, tone is normal in all 4 extremities. Results - Laboratory Findings CBC and BMP: 04/25/20 08:47 04/25/20 12:46 ABG ABG pH <6.80 (7.35-7.45) L* 04/25/20 10:01 ABG pCO2 20 mmHg (35-45) L 04/25/20 10:01 ABG pO2 >400 mmHg (83-108) H 04/25/20 10:01 ABG O2 Saturation 100.0 % (94-97) H 04/25/20 10:01 Abnormal lab findings: Abnormal Labs 04/25/20 04/25/20 04/25/20 08:47 08:47 08:47 WBC 15.7 H Hct 51.2 H MCV 117.6 H MCHC 28.9 L Neutrophils # (Manual) 12.20 H Monocytes # (Manual) 1.26 H Metamyelocytes # (Man) 0.16 H Macrocytosis Marked A ABG pH ABG pCO2 ABG pO2 ABG HCO3 ABG Total CO2 ABG O2 Saturation VBG pH 6.54 L* VBG pCO2 32 L VBG HCO3 3 L* Sodium 129 L Potassium 8.0 H* Carbon Dioxide <5 L* BUN 51 H Creatinine 4.05 H Glucose 1234 H* POC Glucose (mg/dL) Urine Protein Urine Glucose (UA) Urine Ketones Urine Blood Urine Mucus 04/25/20 04/25/20 04/25/20 09:09 09:15 10:01 WBC Hct MCV MCHC Neutrophils # (Manual) Monocytes # (Manual) Metamyelocytes # (Man) Macrocytosis ABG pH <6.80 L* <6.80 L* ABG pCO2 <15 L* 20 L ABG pO2 193 H >400 H ABG HCO3 2 L* ABG Total CO2 3 L ABG O2 Saturation 98.9 H 100.0 H VBG pH VBG pCO2 VBG HCO3 Sodium Potassium Carbon Dioxide BUN Creatinine Glucose POC Glucose (mg/dL) Urine Protein 2+ H Urine Glucose (UA) 4+ H Urine Ketones 2+ H Urine Blood Small H Urine Mucus Rare H 04/25/20 04/25/2004/25/21 10:06 11:03 12:01 WBC Hct MCV MCHC Neutrophils # (Manual) Monocytes # (Manual) Metamyelocytes # (Man) Macrocytosis ABG pH ABG pCO2 ABG pO2 ABG HCO3 ABG Total CO2 ABG O2 Saturation VBG pH VBG pCO2 VBG HCO3 Sodium Potassium Carbon Dioxide BUN Creatinine Glucose POC Glucose (mg/dL) >600 H >600 H >600 H Urine Protein Urine Glucose (UA) Urine Ketones Urine Blood Urine Mucus - Diagnostic Findings Chest x-ray: report reviewed, image reviewed Additional studies: EKG reviewed, brain CT reviewed Assessment and Plan Plan: Assessment: #1. Acute diabetic ketoacidosis #2. Profound metabolic acidosis related to the above #3. Altered mental status, related to metabolic encephalopathy, brain CT showed no acute abnormalities #4. Multiple electrolyte abnormalities, including hyperkalemia, hyponatremia, acidemia related to acute DKA #5. Acute kidney injury #6. Hypotension, hypovolemic shock related to severe dehydration, rule out possibility of septic shock #7. Diabetes mellitus type 1, takes Toujeo insulin on a regular basis #8. 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 Lifetime nonsmoker Plan: Continue bicarbonate infusion in 100 per hour, continue maintenance IV fluids with 0.9 at 200 mL per hour, repeat blood gases have been reviewed, patient remains severely acidemic, we'll give 2 A of sodium bicarb. We'll send blood culture, lactic acid, serum cortisol, we'll start empiric antibiotics in the form of Zosyn, start Lovenox at prophylactic dose 30 mg daily, Protonix, continue insulin infusion per DKA protocol, BMP every 4 hours, serum potassium has come down, and will likely continue to drop, we will replace potassium 20 meq of KCl GI NG tube every 4 hours. We'll start norepinephrine for blood pressure support, right groin triple-lumen catheter has been inserted and left radial artery for blood pressure monitoring and blood sampling. Use to prevent for sedation for RASS -3. Patient is critically ill. We'll continue close monitoring intensive care unit. I performed a history & physical examination of the patient and discussed their management with my nurse practitioner, Bettina Heath. I reviewed the nurse practitioner's note and agree with the documented findings and plan of care. Lung sounds are positive for diminished breath sounds. The findings and the impression was discussed with the patient. I attest to the documentation by the nurse practitioner. Time with Patient: Greater than 30
--- NOTE | 2020-04-25 15:24 | P.HPIM ---
History of Present Illness Patient is a 40-year-old female with known diabetic found unresponsive. Patient talked to the family members on Wednesday night after that the patient never responded to texts, family found her unresponsive in her own bed. Patient is found to be severely hypothermic bradycardic severely acidotic with pH of 6.5 with highly elevated blood sugar of 1200. And has to be intubated for protection of airway. Patient is presently on set up respiratory rate of 24 because of severe metabolic acidosis patient was started on IV insulin presently in normal saline and was to half-normal 7 because of hyperchloremia patient is also on bicarbonate drip along with norepinephrine and around the 13 g. Patient has a severe electrolyte abnormalities patient also had respiratory acidosis. Patient has highly elevated potassium patient received the calcium gluconate presently receiving bicarbonate and is also on IV insulin and this potassium potassium has come down now. Review of Systems Unable to obtain due to her clinical condition. 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, wisdom teeth Past Anesthesia/Blood Transfusion Reactions: No Reported Reaction Past Psychological History: No Psychological Hx Reported Past Alcohol Use History: None Reported Past Drug Use History: None Reported - Past Family History Father Family Medical History: No Reported History Additional Family Medical History / Comment(s): Father is healthy Mother Family Medical History: No Reported History Additional Family Medical History / Comment(s): Mother is healthy Medications and Allergies Home Medications Medication Instructions Recorded Confirmed Type Insulin Glargine,Hum.rec.anlog 40 units SQ HS 04/25/20 04/25/20 History [Asad Ta] Allergies Allergy/AdvReac Type Severity Reaction Status Date / Time No Known Allergies Allergy Verified 04/25/20 08:48 Physical Exam Vitals: Vital Signs Temp Pulse Resp BP Pulse Ox 04/25/20 14:50 92 17 95/48 100 04/25/20 14:40 92 18 88/40 99 04/25/20 14:30 92 17 84/38 99 04/25/20 14:20 91 24 84/38 99 04/25/20 14:10 90 24 80/40 98 04/25/20 14:00 99.0 F 90 24 82/38 100 04/25/20 13:50 89 24 82/38 100 04/25/20 13:40 89 24 81/39 100 04/25/20 13:26 98.6 F 90 18 84/45 100 04/25/20 12:52 97.7 F 80 18 86/45 100 04/25/20 12:33 96.8 F L 80 18 84/42 04/25/20 12:15 95.5 F L 80 18 85/44 100 04/25/20 11:51 93.9 F L 75 16 89/53 99 04/25/20 11:00 90.3 F L 67 20 93/58 99 04/25/20 10:31 88.2 F L 61 20 93/59 99 04/25/20 10:10 87.1 F L 60 85/56 04/25/20 09:50 86.0 F L 62 16 88/53 04/25/20 09:30 85.5 F L 65 107/62 04/25/20 09:23 85.3 F L 62 24 83/52 98 04/25/20 09:14 79/40 04/25/20 09:01 28 H 04/25/20 09:00 83.5 F L 53 L 26 H 73/32 96 04/25/20 08:48 51 L 74/38 04/25/20 08:36 84.6 F L 47 L 26 H 126/76 Intake and Output 04/25/20 04/25/20 04/25/20 06:59 14:59 22:59 Other: Weight 64.2 kg ABP, PAP, CO, CI - Last 8 Hours Arterial Blood Pressure 81/36 Arterial Blood Pressure 70/28 PHYSICAL EXAMINATION: GENERAL: Intubated sedated HEENT: Pupils are round and equally reacting to light. EOMI. patient has a horizontal nystagmus No scleral icterus. No conjunctival pallor. Normocephalic, atraumatic. No pharyngeal erythema. No thyromegaly. CARDIOVASCULAR: S1 and S2 present. No murmurs, rubs, or gallops. PULMONARY: Chest is clear to auscultation, no wheezing or crackles. ABDOMEN: Soft, nontender, nondistended, normoactive bowel sounds. No palpable organomegaly. MUSCULOSKELETAL: No joint swelling or deformity. EXTREMITIES: No cyanosis, clubbing, or pedal edema. NEUROLOGICAL: Sedated SKIN: Patient does have some bruises and deep discoloration of the skin because of laying on the bed at home. Results CBC & Chem 7: 04/25/20 08:47 04/25/20 12:46 Labs: Abnormal Lab Results - Last 24 Hours (Table) 04/25/20 04/25/20 04/25/20 Range/Units 08:47 08:47 08:47 WBC 15.7 H (3.8-10.6) k/uL Hct 51.2 H (34.0-46.0) % MCV 117.6 H (80.0-100.0) fL MCHC 28.9 L (31.0-37.0) g/dL Neutrophils # (Manual) 12.20 H (1.3-7.7) k/uL Monocytes # (Manual) 1.26 H (0-1.0) k/uL Metamyelocytes # (Man) 0.16 H (0) k/uL Macrocytosis Marked A ABG pH (7.35-7.45) ABG pCO2 (35-45) mmHg ABG pO2 (83-108) mmHg ABG HCO3 (21-25) mmol/L ABG Total CO2 (19-24) mmol/L ABG O2 Saturation (94-97) % VBG pH 6.54 L* (7.31-7.41) VBG pCO2 32 L (37-51) mmHg VBG HCO3 3 L* (24-28) mmol/L Sodium 129 L (137-145) mmol/L Potassium 8.0 H* (3.5-5.1) mmol/L Chloride (98-107) mmol/L Carbon Dioxide <5 L* (22-30) mmol/L BUN 51 H (7-17) mg/dL Creatinine 4.05 H (0.52-1.04) mg/dL Glucose 1234 H* (74-99) mg/dL POC Glucose (mg/dL) (75-99) mg/dL Phosphorus (2.5-4.5) mg/dL Urine Protein (Negative) Urine Glucose (UA) (Negative) Urine Ketones (Negative) Urine Blood (Negative) Urine Mucus (None) /hpf 04/25/20 04/25/20 04/25/20 Range/Units 09:09 09:15 10:01 WBC (3.8-10.6) k/uL Hct (34.0-46.0) % MCV (80.0-100.0) fL MCHC (31.0-37.0) g/dL Neutrophils # (Manual) (1.3-7.7) k/uL Monocytes # (Manual) (0-1.0) k/uL Metamyelocytes # (Man) (0) k/uL Macrocytosis ABG pH <6.80 L* <6.80 L* (7.35-7.45) ABG pCO2 <15 L* 20 L (35-45) mmHg ABG pO2 193 H >400 H (83-108) mmHg ABG HCO3 2 L* (21-25) mmol/L ABG Total CO2 3 L (19-24) mmol/L ABG O2 Saturation 98.9 H 100.0 H (94-97) % VBG pH (7.31-7.41) VBG pCO2 (37-51) mmHg VBG HCO3 (24-28) mmol/L Sodium (137-145) mmol/L Potassium (3.5-5.1) mmol/L Chloride (98-107) mmol/L Carbon Dioxide (22-30) mmol/L BUN (7-17) mg/dL Creatinine (0.52-1.04) mg/dL Glucose (74-99) mg/dL POC Glucose (mg/dL) (75-99) mg/dL Phosphorus (2.5-4.5) mg/dL Urine Protein 2+ H (Negative) Urine Glucose (UA) 4+ H (Negative) Urine Ketones 2+ H (Negative) Urine Blood Small H (Negative) Urine Mucus Rare H (None) /hpf 04/25/20 04/25/20 04/25/20 Range/Units 10:06 11:03 12:01 WBC (3.8-10.6) k/uL Hct (34.0-46.0) % MCV (80.0-100.0) fL MCHC (31.0-37.0) g/dL Neutrophils # (Manual) (1.3-7.7) k/uL Monocytes # (Manual) (0-1.0) k/uL Metamyelocytes # (Man) (0) k/uL Macrocytosis ABG pH (7.35-7.45) ABG pCO2 (35-45) mmHg ABG pO2 (83-108) mmHg ABG HCO3 (21-25) mmol/L ABG Total CO2 (19-24) mmol/L ABG O2 Saturation (94-97) % VBG pH (7.31-7.41) VBG pCO2 (37-51) mmHg VBG HCO3 (24-28) mmol/L Sodium (137-145) mmol/L Potassium (3.5-5.1) mmol/L Chloride (98-107) mmol/L Carbon Dioxide (22-30) mmol/L BUN (7-17) mg/dL Creatinine (0.52-1.04) mg/dL Glucose (74-99) mg/dL POC Glucose (mg/dL) >600 H >600 H >600 H (75-99) mg/dL Phosphorus (2.5-4.5) mg/dL Urine Protein (Negative) Urine Glucose (UA) (Negative) Urine Ketones (Negative) Urine Blood (Negative) Urine Mucus (None) /hpf 04/25/20 04/25/20 04/25/20 Range/Units 12:46 12:46 13:07 WBC (3.8-10.6) k/uL Hct (34.0-46.0) % MCV (80.0-100.0) fL MCHC (31.0-37.0) g/dL Neutrophils # (Manual) (1.3-7.7) k/uL Monocytes # (Manual) (0-1.0) k/uL Metamyelocytes # (Man) (0) k/uL Macrocytosis ABG pH (7.35-7.45) ABG pCO2 (35-45) mmHg ABG pO2 (83-108) mmHg ABG HCO3 (21-25) mmol/L ABG Total CO2 (19-24) mmol/L ABG O2 Saturation (94-97) % VBG pH (7.31-7.41) VBG pCO2 (37-51) mmHg VBG HCO3 (24-28) mmol/L Sodium (137-145) mmol/L Potassium (3.5-5.1) mmol/L Chloride 117 H (98-107) mmol/L Carbon Dioxide <5 L* (22-30) mmol/L BUN 50 H (7-17) mg/dL Creatinine 3.32 H (0.52-1.04) mg/dL Glucose 903 H* (74-99) mg/dL POC Glucose (mg/dL) >600 H (75-99) mg/dL Phosphorus 5.1 H (2.5-4.5) mg/dL Urine Protein (Negative) Urine Glucose (UA) (Negative) Urine Ketones (Negative) Urine Blood (Negative) Urine Mucus (None) /hpf 04/25/20 04/25/20 Range/Units 13:34 14:37 WBC (3.8-10.6) k/uL Hct (34.0-46.0) % MCV (80.0-100.0) fL MCHC (31.0-37.0) g/dL Neutrophils # (Manual) (1.3-7.7) k/uL Monocytes # (Manual) (0-1.0) k/uL Metamyelocytes # (Man) (0) k/uL Macrocytosis ABG pH 6.88 L* (7.35-7.45) ABG pCO2 17 L* (35-45) mmHg ABG pO2 212 H (83-108) mmHg ABG HCO3 3 L* (21-25) mmol/L ABG Total CO2 4 L (19-24) mmol/L ABG O2 Saturation 100.0 H (94-97) % VBG pH (7.31-7.41) VBG pCO2 (37-51) mmHg VBG HCO3 (24-28) mmol/L Sodium (137-145) mmol/L Potassium (3.5-5.1) mmol/L Chloride (98-107) mmol/L Carbon Dioxide (22-30) mmol/L BUN (7-17) mg/dL Creatinine (0.52-1.04) mg/dL Glucose (74-99) mg/dL POC Glucose (mg/dL) >600 H (75-99) mg/dL Phosphorus (2.5-4.5) mg/dL Urine Protein (Negative) Urine Glucose (UA) (Negative) Urine Ketones (Negative) Urine Blood (Negative) Urine Mucus (None) /hpf Thrombosis Risk Factor Assmnt - Choose All That Apply Any of the Below Risk Factors Present?: Yes Each Factor Represents 1 point: Medical pt on bed rest Other Risk Factors: Yes Each Risk Factor Represents 2 Points: Patient confined to bed Other congenital or acquired thrombophilia - If yes, enter type in comment: No Thrombosis Risk Factor Assessment Total Risk Factor Score: 3 Thrombosis Risk Factor Assessment Level: Moderate Risk Assessment and Plan Plan: -Profound metabolic acidosis: Secondary to diabetic ketoacidosis and lactic acidosis. Counseling 1200 blood sugars wouldn't worry about hyperosmolar state as well patient will be continued on IV insulin drip at this time. Patient is on bicarbonate drip. Patient also has a mild compensated respiratory alkalosis. -Altered mental status, unresponsive state: Patient has respiratory failure secondary to this patient is presently intubated CT did not show any significant abnormality and this is secondary to profound metabolic acidosis and metabolic encephalopathy. -Hyperkalemia secondary to severe hyperglycemia continue with IV fluids half- normal saline with insulin. Received calcium gluconate -Acute kidney injury related azotemia is secondary to severe dehydration -Hypovolemic shock: Secondary to severe intravascular volume depletion, patient is on norepinephrine which will be continued -Type 1 diabetes mellitus -Leukocytosis mostly reactive in nature -Pseudohyponatremia improved with IV fluids -Hypothermia: Secondary to hypovolemic shock -DVT prophylaxis with the heparin. GI prophylaxis with Protonix
[2020-04-25 15:29] LABS: Carbon Dioxide <5 mmol/L (22-30); Glucose 869 mg/dL (74-99)
[2020-04-25] MEDS: NOREPINEPHRINE 32 MG in SODIUM CHLORIDE 0.9% 218 ML IV SCH (15:36)
[2020-04-25] MEDS ORDERED: POTASSIUM BICARBONATE/CIT AC 20 MEQ TABLET.EFF NG-TUBE SCH (16:00)
[2020-04-25 16:03] LABS: Glucose,Whole Blood >600 mg/dL (75-99)
[2020-04-25] MEDS: SODIUM CHLORIDE 0.45% 1,000 ML IV SCH ×2 (16:16→23:17)
[2020-04-25 16:19] LABS: ABG Base Excess -27.6 mmol/L; ABG PO2 212 mmHg (83-108); ABG TCO2 5 mmol/L (19-24); Allen Test Performed? Yes
[2020-04-25] MEDS: PIPERACILLIN-TAZOBACTAM 3.375 GM in SODIUM CHLORIDE 0.9% 100 ML IVPB SCH (16:20)
[2020-04-25] MEDS: HEPARIN SODIUM,PORCINE 5,000 UNIT/ML 1 ML VIAL SQ SCH (16:22)
[2020-04-25 16:23] LABS: ABG HCO3 4 mmol/L (21-25); ABG PCO2 18 mmHg (35-45); ABG PH 6.97 (7.35-7.45)
[2020-04-25] MEDS: PANTOPRAZOLE 40 MG/10 ML VIAL IVP SCH (16:26)
[2020-04-25 17:46] LABS: Glucose,Whole Blood >600 mg/dL (75-99)
[2020-04-25 19:05] LABS: Glucose,Whole Blood >600 mg/dL (75-99)
[2020-04-25 19:55] LABS: ABG PCO2 25 mmHg (35-45); ABG PO2 201 mmHg (83-108); ABG TCO2 8 mmol/L (19-24)
[2020-04-25 19:59] LABS: Allen Test Performed? no
[2020-04-25 20:15] LABS: Potassium 1.8 mmol/L (3.5-5.1)
--- NOTE | 2020-04-25 20:23 | OP ---
OPERATIVE REPORT OPERATIVE REPORT: Placement of right femoral triple-lumen catheter/central line. PREOPERATIVE DIAGNOSIS: Acute diabetic ketoacidosis and hypotension. POSTOPERATIVE DIAGNOSIS: Acute diabetic ketoacidosis and hypotension. ANESTHESIA USED: Two mL of 1% lidocaine. PROCEDURE DESCRIPTION: The patient was placed in supine position. The right groin was prepared in a sterile fashion and drapes were applied. The right groin was locally anesthetized with lidocaine. Then the right femoral vein was easily cannulated medial to the right femoral artery. A guidewire was placed. Area around the guidewire was dilated, and a triple-lumen catheter was inserted over the guidewire, and the guidewire was removed. Good blood flow was noted in the 3 different ports of the triple-lumen catheter. Line was secured using 3.0 silk sutures. No evidence of any complications. MMODL / IJN: [id number] /
[2020-04-25] MEDS: CHLORHEXIDINE GLUCONATE 15 ML CUP MUCOUS MEM SCH (20:24)
[2020-04-25] MEDS: POTASSIUM CHLORIDE 20 MEQ in WATER FOR INJECTION 1 100ML.BAG IVPB SCH ×2 (20:25→22:23)
[2020-04-25] MEDS: POTASSIUM BICARBONATE/CIT AC 20 MEQ TABLET.EFF PO SCH (20:26)
--- NOTE | 2020-04-25 20:31 | OP ---
OPERATIVE REPORT OPERATIVE REPORT: Placement of left radial arterial line. PREOPERATIVE DIAGNOSIS: Acute diabetic ketoacidosis and hypotension. Patient is on pressors and she is hypotensive. POSTOPERATIVE DIAGNOSIS: Acute diabetic ketoacidosis and hypotension. Patient is on pressors and she is hypotensive. ANESTHESIA USED: None deployed. PROCEDURE DESCRIPTION: The left wrist was prepared in a sterile fashion and drapes were applied. The left radial artery was palpated, easily cannulated, and a guidewire was placed. The line was secured using 3.0 silk sutures. There was evidence of good waveform and good flow in the arterial line. Procedure was well tolerated. No evidence of any complications. MMODL / IJN: [id number] /
[2020-04-25] MEDS ORDERED: DEXTROSE 5% IN WATER 1,000 ML with SODIUM BICARB (1 MEQ/ML) 150 ML IV SCH (20:45)
[2020-04-25 21:37] LABS: Glucose,Whole Blood >600 mg/dL (75-99)
[2020-04-25 22:27] LABS: ABG Base Excess -22.4 mmol/L; ABG PCO2 20 mmHg (35-45); ABG PO2 155 mmHg (83-108); ABG TCO2 7 mmol/L (19-24)
[2020-04-25 22:32] LABS: Allen Test Performed? no
[2020-04-25] MEDS ORDERED: DEXTROSE 5%-0.45% NACL 1,000 ML with SODIUM BICARB (1 MEQ/ML) 150 ML IV SCH ×2 (22:34)
[2020-04-25 22:53] LABS: Glucose,Whole Blood >600 mg/dL (75-99)
[2020-04-25] MEDS ORDERED: HYDROCORTISONE SUCCINATE 100 MG/2 ML VIAL IV STA (22:55)
[2020-04-25] MEDS: SODIUM CHLORIDE 0.9% 150 ML with VASOPRESSIN 60 UNIT IV SCH ×2 (23:16)
[2020-04-26] MEDS ORDERED: POTASSIUM CHLORIDE 20 MEQ in WATER FOR INJECTION 1 100ML.BAG IVPB STA ×2 (00:45→03:06)
[2020-04-26] MEDS: HEPARIN SODIUM,PORCINE 5,000 UNIT/ML 1 ML VIAL SQ SCH ×3 (00:48→18:15)
[2020-04-26] MEDS: POTASSIUM BICARBONATE/CIT AC 20 MEQ TABLET.EFF PO SCH ×6 (00:48→20:24)
[2020-04-26] MEDS: PIPERACILLIN-TAZOBACTAM 3.375 GM in SODIUM CHLORIDE 0.9% 100 ML IVPB SCH ×3 (00:49→20:25)
[2020-04-26 01:36] LABS: Glucose,Whole Blood >600 mg/dL (75-99)
[2020-04-26 02:38] LABS: Glucose 674 mg/dL (74-99)
[2020-04-26 02:39] LABS: Phosphorus <0.5 mg/dL (2.5-4.5)
[2020-04-26] MEDS: POTASSIUM PHOSPHATE 10 MMOL in SODIUM CHLORIDE 0.9% 250 ML IV SCH ×5 (03:37→20:26)
[2020-04-26 03:51] LABS: Glucose,Whole Blood 581 mg/dL (75-99)
[2020-04-26] MEDS: INSULIN REGULAR 100 UNIT in SODIUM CHLORIDE 0.9% 100 ML IV SCH ×2 (03:51→18:14)
[2020-04-26 04:15] LABS: Calcium 8.8 mg/dL (8.4-10.2)
[2020-04-26 04:30] LABS: Potassium 2.4 mmol/L (3.5-5.1)
[2020-04-26 04:34] LABS: Basophils % (A) 0 %; Eosinophils % (A) 0 %; HCT 35.2 % (34.0-46.0); HGB 12.2 gm/dL (11.4-16.0); Lymphocytes # (A) 0.2 k/uL (1.0-4.8); Lymphocytes % (A) 3 %; MCH 33.4 pg (25.0-35.0); MCHC 34.6 g/dL (31.0-37.0); Mean Platelet Volume 8.1; Monocytes # (A) 0.4 k/uL (0-1.0); Monocytes % (A) 7 %; Neutrophils # (A) 5.5 k/uL (1.3-7.7); Neutrophils % (A) 90 %; RBC 3.65 m/uL (3.80-5.40); RDW 13.7 % (11.5-15.5); WBC 6.2 k/uL (3.8-10.6)
[2020-04-26] MEDS: SODIUM CHLORIDE 0.45% 1,000 ML IV SCH ×4 (04:43→18:17)
[2020-04-26 04:46] LABS: MCV 96.3 fL (80.0-100.0); Platelet Count 137 k/uL (150-450)
[2020-04-26 04:58] LABS: Glucose,Whole Blood 558 mg/dL (75-99)
[2020-04-26 05:21] LABS: ABG Base Excess -10.8 mmol/L; ABG HCO3 15 mmol/L (21-25); ABG PCO2 29 mmHg (35-45); ABG PH 7.32 (7.35-7.45); ABG PO2 119 mmHg (83-108); ABG TCO2 16 mmol/L (19-24)
[2020-04-26 05:38] LABS: Allen Test Performed? no
[2020-04-26] MEDS: POTASSIUM CHLORIDE 20 MEQ in WATER FOR INJECTION 1 100ML.BAG IVPB SCH ×9 (05:41→20:26)
[2020-04-26] MEDS ORDERED: ACETAMINOPHEN TAB 325 MG TAB PO PRN (06:00)
[2020-04-26 06:20] LABS: Glucose,Whole Blood 548 mg/dL (75-99)
[2020-04-26 07:01] LABS: Glucose,Whole Blood 569 mg/dL (75-99)
--- NOTE | 2020-04-26 07:39 | XR ---
EXAMINATION TYPE: XR chest 1V portable DATE OF EXAM: 04/26/2020 COMPARISON: 04/25/2020 INDICATION: Tube placement TECHNIQUE: Single frontal view of the chest is obtained. FINDINGS: The heart size is normal. The pulmonary vasculature is normal. The lungs are clear. Endotracheal tube tip is above the hany. Nasogastric tube tip is within the left upper quadrant of the abdomen. IMPRESSION: 1. Lines and catheters discussed above.
[2020-04-26 08:21] LABS: Glucose,Whole Blood 516 mg/dL (75-99)
[2020-04-26] MEDS ORDERED: Phosphorus Replacement Protoco 1 EACH MISC MISCELLANE PRN ×2 (08:54→17:41)
--- NOTE | 2020-04-26 08:57 | P.PN ---
Subjective 40-year-old female with known diabetic found unresponsive. Patient talked to the family members on Wednesday night after that the patient never responded to texts, family found her unresponsive in her own bed. Patient is found to be severely hypothermic bradycardic severely acidotic with pH of 6.5 with highly elevated blood sugar of 1200. And has to be intubated for protection of airway. Patient is presently on set up respiratory rate of 24 because of severe metabolic acidosis patient was started on IV insulin presently in normal saline and was to half-normal 7 because of hyperchloremia patient is also on bicarbonate drip along with norepinephrine and around the 13 g. Patient has a severe electrolyte abnormalities patient also had respiratory acidosis. Patient has highly elevated potassium patient received the calcium gluconate presently receiving bicarbonate and is also on IV insulin and this potassium potassium has come down now. 05/24/2020 Patient remains intubated had had a metabolic acidosis significantly improved patient pCO2 is a 29 pH is 7.39. Patient is on basic when setting send a set up respiratory of 24 at this time. We will wean off her sedation. Patient is presently unresponsive because of sedation. Patient's nystagmus improved. Patient is presently on around the 6-7 mcg/h of norepinephrine. Patient is also on very low dose of vasopressin the stool will be weaned off. Patient the DKA resolved but blood sugars remained high because of the D5 which she is receiving for bicarbonate drip which will be discontinued at this time patient will be continued on half-normal saline with insulin was a blood sugars come down to 300 also check to long-acting insulin dose will be decided depending on if patient will receive nutrition are not today. Patient will also be on sliding scale and additionally on pre-meal insulin as well. Patient's phosphorus is extremely low which will be replaced. Anion gap improved to 12 but the patient's bicarbonate is only 14 this is because of hyperchloremia. Review of systems: Unable to obtain due to her clinical condition All inpatient medications were reviewed and appropriate changes in these medications as dictated in the interval history and assessment and plan. Objective - Vital Signs Vital signs: Vital Signs Temp 98.7 F 04/26/20 08:00 Pulse 105 H 04/26/20 08:00 Resp 24 04/26/20 08:00 BP 102/69 04/26/20 08:00 Pulse Ox 97 04/26/20 08:00 Intake & Output 04/25/20 04/26/20 04/26/20 18:59 06:59 18:59 Intake Total 1668.308 7454.202 308.775 Output Total 125 750 70 Balance 248.839 4626.202 238.775 Weight 64.2 kg 74.3 kg Intake: IV 1000 4950 300 Dextrose 5%-0.45% NaCl 1, 400 1800 150 000 ml @ 150 mls/hr IV . Q7H40M ONE with Sod Bicarb Syr 8.4% (1 Meq/ml ) 150 ml Rx#:[id number] Piperacillin-Tazobactam 3 100 .375 gm In Sodium Chloride 0.9% 100 ml @ 25 mls/hr IVPB Q8HR [facility] Rx# :[id number] Potassium Chloride 20 meq 500 In Water For Injection 1 100ml.bag @ 50 mls/hr IVPB ONCE STA Rx#: [id number] Potassium Phosphate 10 500 mmol In Sodium Chloride 0 .9% 250 ml @ 125 mls/hr IV Q2H [facility] Rx#:[id number] Sodium Chloride 0.45% 1, 600 2050 150 000 ml @ 200 mls/hr IV . Q5H [facility] Rx#:[id number] Intake, IV Titration 18.157 273.202 8.775 Amount Insulin Regular 100 unit 131.358 8.775 In Sodium Chloride 0.9% 100 ml @ 0.1 UNITS/KG/HR 6.484 mls/hr IV .[id number] [facility] Rx#:[id number] Norepinephrine 32 mg In 18.157 141.844 Sodium Chloride 0.9% 218 ml @ 0.05 MCG/KG/MIN 1. 505 mls/hr IV .Q24H [facility] Rx#:[id number] Output: Urine 125 750 70 Other: Voiding Method Indwelling Catheter Indwelling Catheter ABP, PAP, CO, CI - Last Documented Arterial Blood Pressure 108/61 - Exam PHYSICAL EXAMINATION: GENERAL: Intubated sedated HEENT: Pupils are round and equally reacting to light. EOMI. No scleral icterus. No conjunctival pallor. Normocephalic, atraumatic. No pharyngeal erythema. No thyromegaly. CARDIOVASCULAR: S1 and S2 present. No murmurs, rubs, or gallops. PULMONARY: Chest is clear to auscultation, no wheezing or crackles. ABDOMEN: Soft, nontender, nondistended, normoactive bowel sounds. No palpable organomegaly. MUSCULOSKELETAL: No joint swelling or deformity. EXTREMITIES: No cyanosis, clubbing, or pedal edema. NEUROLOGICAL: Sedated SKIN: Patient does have some bruises and deep discoloration of the skin because of laying on the bed at home. - Labs CBC & Chem 7: 04/26/20 03:52 04/26/20 03:52 Labs: Abnormal Lab Results - Last 24 Hours (Table) 04/25/20 04/25/20 04/25/20 Range/Units 08:47 08:47 08:47 WBC 15.7 H (3.8-10.6) k/uL RBC (3.80-5.40) m/uL Hct 51.2 H (34.0-46.0) % MCV 117.6 H (80.0-100.0) fL MCHC 28.9 L (31.0-37.0) g/dL Plt Count (150-450) k/uL Neutrophils # (Manual) 12.20 H (1.3-7.7) k/uL Lymphocytes # (1.0-4.8) k/uL Monocytes # (Manual) 1.26 H (0-1.0) k/uL Metamyelocytes # (Man) 0.16 H (0) k/uL Macrocytosis Marked A ABG pH (7.35-7.45) ABG pCO2 (35-45) mmHg ABG pO2 (83-108) mmHg ABG HCO3 (21-25) mmol/L ABG Total CO2 (19-24) mmol/L ABG O2 Saturation (94-97) % VBG pH 6.54 L* (7.31-7.41) VBG pCO2 32 L (37-51) mmHg VBG HCO3 3 L* (24-28) mmol/L Sodium 129 L (137-145) mmol/L Potassium 8.0 H* (3.5-5.1) mmol/L Chloride (98-107) mmol/L Carbon Dioxide <5 L* (22-30) mmol/L BUN 51 H (7-17) mg/dL Creatinine 4.05 H (0.52-1.04) mg/dL Glucose 1234 H* (74-99) mg/dL POC Glucose (mg/dL) (75-99) mg/dL Phosphorus (2.5-4.5) mg/dL Urine Protein (Negative) Urine Glucose (UA) (Negative) Urine Ketones (Negative) Urine Blood (Negative) Urine Mucus (None) /hpf 04/25/20 04/25/20 04/25/20 Range/Units 09:09 09:15 10:01 WBC (3.8-10.6) k/uL RBC (3.80-5.40) m/uL Hct (34.0-46.0) % MCV (80.0-100.0) fL MCHC (31.0-37.0) g/dL Plt Count (150-450) k/uL Neutrophils # (Manual) (1.3-7.7) k/uL Lymphocytes # (1.0-4.8) k/uL Monocytes # (Manual) (0-1.0) k/uL Metamyelocytes # (Man) (0) k/uL Macrocytosis ABG pH <6.80 L* <6.80 L* (7.35-7.45) ABG pCO2 <15 L* 20 L (35-45) mmHg ABG pO2 193 H >400 H (83-108) mmHg ABG HCO3 2 L* (21-25) mmol/L ABG Total CO2 3 L (19-24) mmol/L ABG O2 Saturation 98.9 H 100.0 H (94-97) % VBG pH (7.31-7.41) VBG pCO2 (37-51) mmHg VBG HCO3 (24-28) mmol/L Sodium (137-145) mmol/L Potassium (3.5-5.1) mmol/L Chloride (98-107) mmol/L Carbon Dioxide (22-30) mmol/L BUN (7-17) mg/dL Creatinine (0.52-1.04) mg/dL Glucose (74-99) mg/dL POC Glucose (mg/dL) (75-99) mg/dL Phosphorus (2.5-4.5) mg/dL Urine Protein 2+ H (Negative) Urine Glucose (UA) 4+ H (Negative) Urine Ketones 2+ H (Negative) Urine Blood Small H (Negative) Urine Mucus Rare H (None) /hpf 04/25/20 04/25/2021 Range/Units 10:06 11:03 12:01 WBC (3.8-10.6) k/uL RBC (3.80-5.40) m/uL Hct (34.0-46.0) % MCV (80.0-100.0) fL MCHC (31.0-37.0) g/dL Plt Count (150-450) k/uL Neutrophils # (Manual) (1.3-7.7) k/uL Lymphocytes # (1.0-4.8) k/uL Monocytes # (Manual) (0-1.0) k/uL Metamyelocytes # (Man) (0) k/uL Macrocytosis ABG pH (7.35-7.45) ABG pCO2 (35-45) mmHg ABG pO2 (83-108) mmHg ABG HCO3 (21-25) mmol/L ABG Total CO2 (19-24) mmol/L ABG O2 Saturation (94-97) % VBG pH (7.31-7.41) VBG pCO2 (37-51) mmHg VBG HCO3 (24-28) mmol/L Sodium (137-145) mmol/L Potassium (3.5-5.1) mmol/L Chloride (98-107) mmol/L Carbon Dioxide (22-30) mmol/L BUN (7-17) mg/dL Creatinine (0.52-1.04) mg/dL Glucose (74-99) mg/dL POC Glucose (mg/dL) >600 H >600 H >600 H (75-99) mg/dL Phosphorus (2.5-4.5) mg/dL Urine Protein (Negative) Urine Glucose (UA) (Negative) Urine Ketones (Negative) Urine Blood (Negative) Urine Mucus (None) /hpf 04/25/20 04/25/20 04/25/20 Range/Units 12:46 12:46 13:07 WBC (3.8-10.6) k/uL RBC (3.80-5.40) m/uL Hct (34.0-46.0) % MCV (80.0-100.0) fL MCHC (31.0-37.0) g/dL Plt Count (150-450) k/uL Neutrophils # (Manual) (1.3-7.7) k/uL Lymphocytes # (1.0-4.8) k/uL Monocytes # (Manual) (0-1.0) k/uL Metamyelocytes # (Man) (0) k/uL Macrocytosis ABG pH (7.35-7.45) ABG pCO2 (35-45) mmHg ABG pO2 (83-108) mmHg ABG HCO3 (21-25) mmol/L ABG Total CO2 (19-24) mmol/L ABG O2 Saturation (94-97) % VBG pH (7.31-7.41) VBG pCO2 (37-51) mmHg VBG HCO3 (24-28) mmol/L Sodium (137-145) mmol/L Potassium (3.5-5.1) mmol/L Chloride 117 H (98-107) mmol/L Carbon Dioxide <5 L* (22-30) mmol/L BUN 50 H (7-17) mg/dL Creatinine 3.32 H (0.52-1.04) mg/dL Glucose 903 H* (74-99) mg/dL POC Glucose (mg/dL) >600 H (75-99) mg/dL Phosphorus 5.1 H (2.5-4.5) mg/dL Urine Protein (Negative) Urine Glucose (UA) (Negative) Urine Ketones (Negative) Urine Blood (Negative) Urine Mucus (None) /hpf 04/25/20 04/25/20 04/25/20 Range/Units 13:34 14:37 14:44 WBC (3.8-10.6) k/uL RBC (3.80-5.40) m/uL Hct (34.0-46.0) % MCV (80.0-100.0) fL MCHC (31.0-37.0) g/dL Plt Count (150-450) k/uL Neutrophils # (Manual) (1.3-7.7) k/uL Lymphocytes # (1.0-4.8) k/uL Monocytes # (Manual) (0-1.0) k/uL Metamyelocytes # (Man) (0) k/uL Macrocytosis ABG pH 6.88 L* (7.35-7.45) ABG pCO2 17 L* (35-45) mmHg ABG pO2 212 H (83-108) mmHg ABG HCO3 3 L* (21-25) mmol/L ABG Total CO2 4 L (19-24) mmol/L ABG O2 Saturation 100.0 H (94-97) % VBG pH (7.31-7.41) VBG pCO2 (37-51) mmHg VBG HCO3 (24-28) mmol/L Sodium (137-145) mmol/L Potassium 2.8 L (3.5-5.1) mmol/L Chloride 119 H (98-107) mmol/L Carbon Dioxide <5 L* (22-30) mmol/L BUN 50 H (7-17) mg/dL Creatinine 3.40 H (0.52-1.04) mg/dL Glucose 869 H* (74-99) mg/dL POC Glucose (mg/dL) >600 H (75-99) mg/dL Phosphorus 1.4 L (2.5-4.5) mg/dL Urine Protein (Negative) Urine Glucose (UA) (Negative) Urine Ketones (Negative) Urine Blood (Negative) Urine Mucus (None) /hpf 04/25/20 04/25/20 04/25/20 Range/Units 16:02 16:17 17:45 WBC (3.8-10.6) k/uL RBC (3.80-5.40) m/uL Hct (34.0-46.0) % MCV (80.0-100.0) fL MCHC (31.0-37.0) g/dL Plt Count (150-450) k/uL Neutrophils # (Manual) (1.3-7.7) k/uL Lymphocytes # (1.0-4.8) k/uL Monocytes # (Manual) (0-1.0) k/uL Metamyelocytes # (Man) (0) k/uL Macrocytosis ABG pH 6.97 L* (7.35-7.45) ABG pCO2 18 L* (35-45) mmHg ABG pO2 212 H (83-108) mmHg ABG HCO3 4 L* (21-25) mmol/L ABG Total CO2 5 L (19-24) mmol/L ABG O2 Saturation 100.0 H (94-97) % VBG pH (7.31-7.41) VBG pCO2 (37-51) mmHg VBG HCO3 (24-28) mmol/L Sodium (137-145) mmol/L Potassium (3.5-5.1) mmol/L Chloride (98-107) mmol/L Carbon Dioxide (22-30) mmol/L BUN (7-17) mg/dL Creatinine (0.52-1.04) mg/dL Glucose (74-99) mg/dL POC Glucose (mg/dL) >600 H >600 H (75-99) mg/dL Phosphorus (2.5-4.5) mg/dL Urine Protein (Negative) Urine Glucose (UA) (Negative) Urine Ketones (Negative) Urine Blood (Negative) Urine Mucus (None) /hpf 04/25/20 04/25/20 04/25/20 Range/Units 19:00 19:03 19:47 WBC (3.8-10.6) k/uL RBC (3.80-5.40) m/uL Hct (34.0-46.0) % MCV (80.0-100.0) fL MCHC (31.0-37.0) g/dL Plt Count (150-450) k/uL Neutrophils # (Manual) (1.3-7.7) k/uL Lymphocytes # (1.0-4.8) k/uL Monocytes # (Manual) (0-1.0) k/uL Metamyelocytes # (Man) (0) k/uL Macrocytosis ABG pH (7.35-7.45) ABG pCO2 (35-45) mmHg ABG pO2 (83-108) mmHg ABG HCO3 (21-25) mmol/L ABG Total CO2 (19-24) mmol/L ABG O2 Saturation (94-97) % VBG pH (7.31-7.41) VBG pCO2 (37-51) mmHg VBG HCO3 (24-28) mmol/L Sodium (137-145) mmol/L Potassium 1.8 L* 1.8 L* (3.5-5.1) mmol/L Chloride 118 H (98-107) mmol/L Carbon Dioxide 6 L* (22-30) mmol/L BUN 53 H (7-17) mg/dL Creatinine 3.47 H (0.52-1.04) mg/dL Glucose 753 H* (74-99) mg/dL POC Glucose (mg/dL) >600 H (75-99) mg/dL Phosphorus (2.5-4.5) mg/dL Urine Protein (Negative) Urine Glucose (UA) (Negative) Urine Ketones (Negative) Urine Blood (Negative) Urine Mucus (None) /hpf 04/25/20 04/25/20 04/25/20 Range/Units 19:52 21:36 22:19 WBC (3.8-10.6) k/uL RBC (3.80-5.40) m/uL Hct (34.0-46.0) % MCV (80.0-100.0) fL MCHC (31.0-37.0) g/dL Plt Count (150-450) k/uL Neutrophils # (Manual) (1.3-7.7) k/uL Lymphocytes # (1.0-4.8) k/uL Monocytes # (Manual) (0-1.0) k/uL Metamyelocytes # (Man) (0) k/uL Macrocytosis ABG pH 7.07 L* 7.13 L* (7.35-7.45) ABG pCO2 25 L 20 L (35-45) mmHg ABG pO2 201 H 155 H (83-108) mmHg ABG HCO3 7 L* 7 L* (21-25) mmol/L ABG Total CO2 8 L 7 L (19-24) mmol/L ABG O2 Saturation 100.0 H 100.0 H (94-97) % VBG pH (7.31-7.41) VBG pCO2 (37-51) mmHg VBG HCO3 (24-28) mmol/L Sodium (137-145) mmol/L Potassium (3.5-5.1) mmol/L Chloride (98-107) mmol/L Carbon Dioxide (22-30) mmol/L BUN (7-17) mg/dL Creatinine (0.52-1.04) mg/dL Glucose (74-99) mg/dL POC Glucose (mg/dL) >600 H (75-99) mg/dL Phosphorus (2.5-4.5) mg/dL Urine Protein (Negative) Urine Glucose (UA) (Negative) Urine Ketones (Negative) Urine Blood (Negative) Urine Mucus (None) /hpf 04/25/20 04/25/20 04/26/20 Range/Units 22:42 22:49 00:40 WBC (3.8-10.6) k/uL RBC (3.80-5.40) m/uL Hct (34.0-46.0) % MCV (80.0-100.0) fL MCHC (31.0-37.0) g/dL Plt Count (150-450) k/uL Neutrophils # (Manual) (1.3-7.7) k/uL Lymphocytes # (1.0-4.8) k/uL Monocytes # (Manual) (0-1.0) k/uL Metamyelocytes # (Man) (0) k/uL Macrocytosis ABG pH (7.35-7.45) ABG pCO2 (35-45) mmHg ABG pO2 (83-108) mmHg ABG HCO3 (21-25) mmol/L ABG Total CO2 (19-24) mmol/L ABG O2 Saturation (94-97) % VBG pH (7.31-7.41) VBG pCO2 (37-51) mmHg VBG HCO3 (24-28) mmol/L Sodium (137-145) mmol/L Potassium 2.1 L* (3.5-5.1) mmol/L Chloride (98-107) mmol/L Carbon Dioxide (22-30) mmol/L BUN (7-17) mg/dL Creatinine (0.52-1.04) mg/dL Glucose 696 H* (74-99) mg/dL POC Glucose (mg/dL) >600 H (75-99) mg/dL Phosphorus (2.5-4.5) mg/dL Urine Protein (Negative) Urine Glucose (UA) (Negative) Urine Ketones (Negative) Urine Blood (Negative) Urine Mucus (None) /hpf 04/26/20 04/26/20 04/26/20 Range/Units 00:40 01:35 03:50 WBC (3.8-10.6) k/uL RBC (3.80-5.40) m/uL Hct (34.0-46.0) % MCV (80.0-100.0) fL MCHC (31.0-37.0) g/dL Plt Count (150-450) k/uL Neutrophils # (Manual) (1.3-7.7) k/uL Lymphocytes # (1.0-4.8) k/uL Monocytes # (Manual) (0-1.0) k/uL Metamyelocytes # (Man) (0) k/uL Macrocytosis ABG pH (7.35-7.45) ABG pCO2 (35-45) mmHg ABG pO2 (83-108) mmHg ABG HCO3 (21-25) mmol/L ABG Total CO2 (19-24) mmol/L ABG O2 Saturation (94-97) % VBG pH (7.31-7.41) VBG pCO2 (37-51) mmHg VBG HCO3 (24-28) mmol/L Sodium (137-145) mmol/L Potassium (3.5-5.1) mmol/L Chloride (98-107) mmol/L Carbon Dioxide (22-30) mmol/L BUN (7-17) mg/dL Creatinine (0.52-1.04) mg/dL Glucose 674 H* (74-99) mg/dL POC Glucose (mg/dL) >600 H 581 H (75-99) mg/dL Phosphorus <0.5 L* (2.5-4.5) mg/dL Urine Protein (Negative) Urine Glucose (UA) (Negative) Urine Ketones (Negative) Urine Blood (Negative) Urine Mucus (None) /hpf 04/26/20 04/26/20 04/26/20 Range/Units 03:52 03:52 04:56 WBC (3.8-10.6) k/uL RBC 3.65 L (3.80-5.40) m/uL Hct (34.0-46.0) % MCV (80.0-100.0) fL MCHC (31.0-37.0) g/dL Plt Count 137 L D (150-450) k/uL Neutrophils # (Manual) (1.3-7.7) k/uL Lymphocytes # 0.2 L (1.0-4.8) k/uL Monocytes # (Manual) (0-1.0) k/uL Metamyelocytes # (Man) (0) k/uL Macrocytosis ABG pH (7.35-7.45) ABG pCO2 (35-45) mmHg ABG pO2 (83-108) mmHg ABG HCO3 (21-25) mmol/L ABG Total CO2 (19-24) mmol/L ABG O2 Saturation (94-97) % VBG pH (7.31-7.41) VBG pCO2 (37-51) mmHg VBG HCO3 (24-28) mmol/L Sodium (137-145) mmol/L Potassium 2.4 L* (3.5-5.1) mmol/L Chloride 116 H (98-107) mmol/L Carbon Dioxide 14 L (22-30) mmol/L BUN 59 H (7-17) mg/dL Creatinine 3.62 H (0.52-1.04) mg/dL Glucose 632 H* (74-99) mg/dL POC Glucose (mg/dL) 558 H (75-99) mg/dL Phosphorus (2.5-4.5) mg/dL Urine Protein (Negative) Urine Glucose (UA) (Negative) Urine Ketones (Negative) Urine Blood (Negative) Urine Mucus (None) /hpf 04/26/20 04/26/20 04/26/20 Range/Units 05:19 06:19 07:00 WBC (3.8-10.6) k/uL RBC (3.80-5.40) m/uL Hct (34.0-46.0) % MCV (80.0-100.0) fL MCHC (31.0-37.0) g/dL Plt Count (150-450) k/uL Neutrophils # (Manual) (1.3-7.7) k/uL Lymphocytes # (1.0-4.8) k/uL Monocytes # (Manual) (0-1.0) k/uL Metamyelocytes # (Man) (0) k/uL Macrocytosis ABG pH 7.32 L (7.35-7.45) ABG pCO2 29 L (35-45) mmHg ABG pO2 119 H (83-108) mmHg ABG HCO3 15 L (21-25) mmol/L ABG Total CO2 16 L (19-24) mmol/L ABG O2 Saturation 100.0 H (94-97) % VBG pH (7.31-7.41) VBG pCO2 (37-51) mmHg VBG HCO3 (24-28) mmol/L Sodium (137-145) mmol/L Potassium (3.5-5.1) mmol/L Chloride (98-107) mmol/L Carbon Dioxide (22-30) mmol/L BUN (7-17) mg/dL Creatinine (0.52-1.04) mg/dL Glucose (74-99) mg/dL POC Glucose (mg/dL) 548 H 569 H (75-99) mg/dL Phosphorus (2.5-4.5) mg/dL Urine Protein (Negative) Urine Glucose (UA) (Negative) Urine Ketones (Negative) Urine Blood (Negative) Urine Mucus (None) /hpf 04/26/20 Range/Units 08:19 WBC (3.8-10.6) k/uL RBC (3.80-5.40) m/uL Hct (34.0-46.0) % MCV (80.0-100.0) fL MCHC (31.0-37.0) g/dL Plt Count (150-450) k/uL Neutrophils # (Manual) (1.3-7.7) k/uL Lymphocytes # (1.0-4.8) k/uL Monocytes # (Manual) (0-1.0) k/uL Metamyelocytes # (Man) (0) k/uL Macrocytosis ABG pH (7.35-7.45) ABG pCO2 (35-45) mmHg ABG pO2 (83-108) mmHg ABG HCO3 (21-25) mmol/L ABG Total CO2 (19-24) mmol/L ABG O2 Saturation (94-97) % VBG pH (7.31-7.41) VBG pCO2 (37-51) mmHg VBG HCO3 (24-28) mmol/L Sodium (137-145) mmol/L Potassium (3.5-5.1) mmol/L Chloride (98-107) mmol/L Carbon Dioxide (22-30) mmol/L BUN (7-17) mg/dL Creatinine (0.52-1.04) mg/dL Glucose (74-99) mg/dL POC Glucose (mg/dL) 516 H (75-99) mg/dL Phosphorus (2.5-4.5) mg/dL Urine Protein (Negative) Urine Glucose (UA) (Negative) Urine Ketones (Negative) Urine Blood (Negative) Urine Mucus (None) /hpf Assessment and Plan Plan: -Profound metabolic acidosis: Secondary to diabetic ketoacidosis and lactic acidosis and hyperkalemia. Management as mentioned in the interval history. Patient still remains bit acidotic -Altered mental status, unresponsive state: Patient has respiratory failure secondary to this patient is presently intubated CT did not show any significant abnormality and this is secondary to profound metabolic acidosis and metabolic encephalopathy. -Hyperkalemia secondary to severe hyperglycemia continue with IV fluids half-nor mal saline with insulin. Received calcium gluconate presently resolved and patient is actually hypokalemic for which patient will receive potassium supplementation -Acute kidney injury related azotemia is secondary to severe dehydration, improved patient may have acute to blood necrosis as well from hypotension and shock -Hypovolemic shock: Secondary to severe intravascular volume depletion, patient is on norepinephrine which will be continued patient is also on vasopressin both of these will be weaned off -Type 1 diabetes mellitus -Leukocytosis mostly reactive in nature -Pseudohyponatremia improved with IV fluids, resolved patient is presently on the hyponatremic side -Hypothermia: Secondary to hypovolemic shock, improved -DVT prophylaxis with the heparin. GI prophylaxis with Protonix
[2020-04-26] MEDS: PANTOPRAZOLE 40 MG/10 ML VIAL IVP SCH (09:01)
[2020-04-26] MEDS: CHLORHEXIDINE GLUCONATE 15 ML CUP MUCOUS MEM SCH ×2 (09:01→20:24)
[2020-04-26 09:20] LABS: Glucose,Whole Blood 413 mg/dL (75-99)
[2020-04-26 10:36] LABS: Glucose,Whole Blood 399 mg/dL (75-99)
[2020-04-26 11:05] LABS: Glucose,Whole Blood 384 mg/dL (75-99)
[2020-04-26 12:45] LABS: Glucose,Whole Blood 378 mg/dL (75-99)
--- NOTE | 2020-04-26 13:45 | P.PN ---
Subjective Progress Note Date: 04/26/20 Principal diagnosis: Acute diabetic ketoacidosis 40-year-old female patient with past history of diabetes mellitus type 1, who was brought into the hospital on 04/25/2020 per EMS for evaluation of altered mental status. The patient is a schoolteacher, she lives by herself, and there were 2 snow days related to the weather. Today patient did not show up for work and the patient's family had not heard from the patient for 2 days and that when they went over to check on her patient was only responsive to painful stimuli and was just moaning and groaning. She was bradycardic when EMS arrived with heart rate in the 40s. There was no evidence of any traumatic injury. Blood sugar was checked at the scene and was too high for a read on the glucometer and patient was very cold. Blood pressure was within normal limits. Patient was extremely hypothermic, she had possibly been in bed for the last 48 hours. Blood gas was obtained in the emergency department showing pH of less than 6.8, pCO2 of 20, pO2 of greater than 400, and bicarbonate concentration of 2 this was done on FiO2 100%. BMP revealed potassium of 8, bicarbonate concentration of less than 5, glucose was 1234, BUN was 51 and creatinine was 4.05. Urinalysis showed 4+ glucose, 2+ proteins, 2+ ketones, serum acetone was positive. White blood cell count was 15.7, hemoglobin is 14.8, hematocrit was 51.2, with MCV of 117, and marked macrocytosis. Coronavirus PCR was negative. Patient was given a total of 4 L in fluid boluses, was started on insulin infusion per DKA protocol, she received 1 amp of sodium bicarbonate and was started on D5 half-normal saline with 3 A of bicarb at 200 ML per hour. Patient was intubated and placed on mechanical ventilator. Current vent settings are assist control mode of ventilation with a rate of 20, tidal lines 450, FiO2 of 40% and PEEP of 5. Brain CT showed no acute intracranial process. Chest x-ray showed mild interstitial prominence, no consolidation or pleural effusion, ET tube was noted to be 1.9 cm from the hany. NG-tube was inserted and was noted to be above the GE junction with the recommendation to advanced at 6 cm further into the stomach. Patient was hypothermic with a temp of 84.6 on arrival, hypotensive, she is receiving fluid boluses. She continues on bicarbonate drip at 200 ML per hour, however her blood pressure is still low in the 80s over 40s, patient is not on any sedation, she is unresponsive. Her temperature has improved, last rectal temp is 98.6F. Recheck blood work was obtained showing potassium of 4.3, sodium is 137, bicarbonate concentration is less than 5, BUN is 50, creatinine is 3.32, GFR is 17, glucose is 903, blood gas showed pO2 of 212, pCO2 of 17, and pH of 6.88. Patient was reevaluated today on 04/26/2020, patient remains in the ICU, intubated and mechanically ventilated. Her ventilator settings are assist control rate of 24 FiO2 is 30% tidal volume is 450 and PEEP is 5. ABG showed a pO2 of 119 pCO2 of 29 pH of 7.32. Bicarb is 14, anion gap is 12. Blood sugar remains in the 500 range. Patient remains on propofol at 15 mcg/kg/m, discontinued her bicarb drip, remains on insulin at 14.5 units per hour. Patient is now hemodynamically stable, required norepinephrine and vasopressin yesterday and she received significant amount of fluids almost over 7 L. Her low blood pressure seems to be mostly related to propofol, when the patient was taken off propofol this morning, her blood pressure was as high as 160s systolic. As soon as she was placed back on propofol, there was clearly evide nce of drop in her blood pressure. Off propofol, patient was restless and agitated, thrashing in bed, would not follow any instructions, and clearly based on her overall clinical status, she is not ready to be weaned, hence I recommended just goes back on propofol. CBC is relatively normal. Potassium remains low at 2.7, patient is receiving significant amount of potassium for replacement. Renal profile is abnormal with a BUN of 59 and creatinine of 3.62 chest x-ray is relatively unremarkable. Objective - Vital Signs Vital signs: Vital Signs Temp 98.3 F 04/26/20 12:00 Pulse 113 H 04/26/20 13:15 Resp 24 04/26/20 13:15 BP 96/67 04/26/20 13:15 Pulse Ox 98 04/26/20 13:15 Intake & Output 04/25/20 04/26/20 04/26/20 18:59 06:59 18:59 Intake Total 7796.726 6383.202 1797.690 Output Total 125 750 245 Balance 297.243 6191.202 1552.690 Weight 64.2 kg 74.3 kg 74.3 kg Intake: IV 1000 4950 1650 Dextrose 5%-0.45% NaCl 1, 400 1800 150 000 ml @ 150 mls/hr IV . Q7H40M ONE with Sod Bicarb Syr 8.4% (1 Meq/ml ) 150 ml Rx#:[id number] Piperacillin-Tazobactam 3 100 100 .375 gm In Sodium Chloride 0.9% 100 ml @ 25 mls/hr IVPB Q8HR [facility] Rx# :[id number] Potassium Chloride 20 meq 500 400 In Water For Injection 1 100ml.bag @ 50 mls/hr IVPB ONCE STA Rx#: [id number] Potassium Phosphate 10 500 250 mmol In Sodium Chloride 0 .9% 250 ml @ 125 mls/hr IV Q2H [facility] Rx#:[id number] Sodium Chloride 0.45% 1, 600 2050 750 000 ml @ 200 mls/hr IV . Q5H [facility] Rx#:[id number] Intake, IV Titration 18.157 273.202 147.690 Amount Insulin Regular 100 unit 131.358 8.775 In Sodium Chloride 0.9% 100 ml @ 0.1 UNITS/KG/HR 6.484 mls/hr IV .[id number] [facility] Rx#:[id number] Norepinephrine 32 mg In 18.157 141.844 18.406 Sodium Chloride 0.9% 218 ml @ 0.05 MCG/KG/MIN 1. 505 mls/hr IV .Q24H [facility] Rx#:[id number] Sodium Chloride 0.9% 150 46.436 ml @ 0.03 UNITS/MIN 4.59 mls/hr IV .Q24H JANELL with Vasopressin 60 unit Rx#: [id number] propofoL 500 mg In Empty 74.073 Bag 1 bag @ Titrate IV . Q0M [facility] Rx#:[id number] Output: Urine 125 750 245 Other: Voiding Method Indwelling Catheter Indwelling Catheter ABP, PAP, CO, CI - Last Documented Arterial Blood Pressure 83/47 - Exam GENERAL EXAM: Revealed a 40-year-old female off propofol, restless, agitated, thrashing in bed, not following any instructions. HEAD: Normocephalic/atraumatic. HEENT: PERRLA, EOMI, anicteric, moist mucous membranes, endotracheal tube and orogastric tube are intact CHEST: No chest wall deformity. Symmetrical expansion. LUNGS: Equal air entry with no crackles, wheeze, rhonchi or dullness. CVS: Regular rate and rhythm, normal S1 and S2, no gallops, no murmurs, no rubs ABDOMEN: Soft, nontender. No hepatosplenomegaly, normal bowel sounds, no guarding or rigidity. EXTREMITIES: No clubbing, no edema, no cyanosis, 2+ pulses and upper and lower extremities. MUSCULOSKELETAL: Moving all extremities, could not actually assess otherwise SPINE: No scoliosis or deformity SKIN: No rashes CENTRAL NERVOUS SYSTEM: Off propofol patient was noted to be restless agitated, did not follow any instructions, extremely agitated, hence placed back on propofol - Labs CBC & Chem 7: 04/26/20 03:52 04/26/20 10:47 Labs: Abnormal Lab Results - Last 24 Hours (Table) 04/25/20 04/25/20 04/25/20 Range/Units 12:46 13:34 14:37 RBC (3.80-5.40) m/uL Plt Count (150-450) k/uL Lymphocytes # (1.0-4.8) k/uL ABG pH 6.88 L* (7.35-7.45) ABG pCO2 17 L* (35-45) mmHg ABG pO2 212 H (83-108) mmHg ABG HCO3 3 L* (21-25) mmol/L ABG Total CO2 4 L (19-24) mmol/L ABG O2 Saturation 100.0 H (94-97) % Potassium (3.5-5.1) mmol/L Chloride 117 H (98-107) mmol/L Carbon Dioxide <5 L* (22-30) mmol/L BUN 50 H (7-17) mg/dL Creatinine 3.32 H (0.52-1.04) mg/dL Glucose 903 H* (74-99) mg/dL POC Glucose (mg/dL) >600 H (75-99) mg/dL Phosphorus (2.5-4.5) mg/dL 04/25/20 04/25/20 04/25/20 Range/Units 14:44 16:02 16:17 RBC (3.80-5.40) m/uL Plt Count (150-450) k/uL Lymphocytes # (1.0-4.8) k/uL ABG pH 6.97 L* (7.35-7.45) ABG pCO2 18 L* (35-45) mmHg ABG pO2 212 H (83-108) mmHg ABG HCO3 4 L* (21-25) mmol/L ABG Total CO2 5 L (19-24) mmol/L ABG O2 Saturation 100.0 H (94-97) % Potassium 2.8 L (3.5-5.1) mmol/L Chloride 119 H (98-107) mmol/L Carbon Dioxide <5 L* (22-30) mmol/L BUN 50 H (7-17) mg/dL Creatinine 3.40 H (0.52-1.04) mg/dL Glucose 869 H* (74-99) mg/dL POC Glucose (mg/dL) >600 H (75-99) mg/dL Phosphorus 1.4 L (2.5-4.5) mg/dL 04/25/20 04/25/20 04/25/20 Range/Units 17:45 19:00 19:03 RBC (3.80-5.40) m/uL Plt Count (150-450) k/uL Lymphocytes # (1.0-4.8) k/uL ABG pH (7.35-7.45) ABG pCO2 (35-45) mmHg ABG pO2 (83-108) mmHg ABG HCO3 (21-25) mmol/L ABG Total CO2 (19-24) mmol/L ABG O2 Saturation (94-97) % Potassium 1.8 L* (3.5-5.1) mmol/L Chloride (98-107) mmol/L Carbon Dioxide (22-30) mmol/L BUN (7-17) mg/dL Creatinine (0.52-1.04) mg/dL Glucose (74-99) mg/dL POC Glucose (mg/dL) >600 H >600 H (75-99) mg/dL Phosphorus (2.5-4.5) mg/dL 04/25/20 04/25/20 04/25/20 Range/Units 19:47 19:52 21:36 RBC (3.80-5.40) m/uL Plt Count (150-450) k/uL Lymphocytes # (1.0-4.8) k/uL ABG pH 7.07 L* (7.35-7.45) ABG pCO2 25 L (35-45) mmHg ABG pO2 201 H (83-108) mmHg ABG HCO3 7 L* (21-25) mmol/L ABG Total CO2 8 L (19-24) mmol/L ABG O2 Saturation 100.0 H (94-97) % Potassium 1.8 L* (3.5-5.1) mmol/L Chloride 118 H (98-107) mmol/L Carbon Dioxide 6 L* (22-30) mmol/L BUN 53 H (7-17) mg/dL Creatinine 3.47 H (0.52-1.04) mg/dL Glucose 753 H* (74-99) mg/dL POC Glucose (mg/dL) >600 H (75-99) mg/dL Phosphorus (2.5-4.5) mg/dL 04/25/20 04/25/20 04/25/20 Range/Units 22:19 22:42 22:49 RBC (3.80-5.40) m/uL Plt Count (150-450) k/uL Lymphocytes # (1.0-4.8) k/uL ABG pH 7.13 L* (7.35-7.45) ABG pCO2 20 L (35-45) mmHg ABG pO2 155 H (83-108) mmHg ABG HCO3 7 L* (21-25) mmol/L ABG Total CO2 7 L (19-24) mmol/L ABG O2 Saturation 100.0 H (94-97) % Potassium (3.5-5.1) mmol/L Chloride (98-107) mmol/L Carbon Dioxide (22-30) mmol/L BUN (7-17) mg/dL Creatinine (0.52-1.04) mg/dL Glucose 696 H* (74-99) mg/dL POC Glucose (mg/dL) >600 H (75-99) mg/dL Phosphorus (2.5-4.5) mg/dL 04/26/20 04/26/20 04/26/20 Range/Units 00:40 00:40 01:35 RBC (3.80-5.40) m/uL Plt Count (150-450) k/uL Lymphocytes # (1.0-4.8) k/uL ABG pH (7.35-7.45) ABG pCO2 (35-45) mmHg ABG pO2 (83-108) mmHg ABG HCO3 (21-25) mmol/L ABG Total CO2 (19-24) mmol/L ABG O2 Saturation (94-97) % Potassium 2.1 L* (3.5-5.1) mmol/L Chloride (98-107) mmol/L Carbon Dioxide (22-30) mmol/L BUN (7-17) mg/dL Creatinine (0.52-1.04) mg/dL Glucose 674 H* (74-99) mg/dL POC Glucose (mg/dL) >600 H (75-99) mg/dL Phosphorus <0.5 L* (2.5-4.5) mg/dL 04/26/20 04/26/20 04/26/20 Range/Units 03:50 03:52 03:52 RBC 3.65 L (3.80-5.40) m/uL Plt Count 137 L D (150-450) k/uL Lymphocytes # 0.2 L (1.0-4.8) k/uL ABG pH (7.35-7.45) ABG pCO2 (35-45) mmHg ABG pO2 (83-108) mmHg ABG HCO3 (21-25) mmol/L ABG Total CO2 (19-24) mmol/L ABG O2 Saturation (94-97) % Potassium 2.4 L* (3.5-5.1) mmol/L Chloride 116 H (98-107) mmol/L Carbon Dioxide 14 L (22-30) mmol/L BUN 59 H (7-17) mg/dL Creatinine 3.62 H (0.52-1.04) mg/dL Glucose 632 H* (74-99) mg/dL POC Glucose (mg/dL) 581 H (75-99) mg/dL Phosphorus (2.5-4.5) mg/dL 04/26/20 04/26/20 04/26/20 Range/Units 04:56 05:19 06:19 RBC (3.80-5.40) m/uL Plt Count (150-450) k/uL Lymphocytes # (1.0-4.8) k/uL ABG pH 7.32 L (7.35-7.45) ABG pCO2 29 L (35-45) mmHg ABG pO2 119 H (83-108) mmHg ABG HCO3 15 L (21-25) mmol/L ABG Total CO2 16 L (19-24) mmol/L ABG O2 Saturation 100.0 H (94-97) % Potassium (3.5-5.1) mmol/L Chloride (98-107) mmol/L Carbon Dioxide (22-30) mmol/L BUN (7-17) mg/dL Creatinine (0.52-1.04) mg/dL Glucose (74-99) mg/dL POC Glucose (mg/dL) 558 H 548 H (75-99) mg/dL Phosphorus (2.5-4.5) mg/dL 04/26/20 04/26/20 04/26/20 Range/Units 07:00 08:19 09:19 RBC (3.80-5.40) m/uL Plt Count (150-450) k/uL Lymphocytes # (1.0-4.8) k/uL ABG pH (7.35-7.45) ABG pCO2 (35-45) mmHg ABG pO2 (83-108) mmHg ABG HCO3 (21-25) mmol/L ABG Total CO2 (19-24) mmol/L ABG O2 Saturation (94-97) % Potassium (3.5-5.1) mmol/L Chloride (98-107) mmol/L Carbon Dioxide (22-30) mmol/L BUN (7-17) mg/dL Creatinine (0.52-1.04) mg/dL Glucose (74-99) mg/dL POC Glucose (mg/dL) 569 H 516 H 413 H (75-99) mg/dL Phosphorus (2.5-4.5) mg/dL 04/26/20 04/26/20 04/26/20 Range/Units 10:35 10:47 10:47 RBC (3.80-5.40) m/uL Plt Count (150-450) k/uL Lymphocytes # (1.0-4.8) k/uL ABG pH (7.35-7.45) ABG pCO2 (35-45) mmHg ABG pO2 (83-108) mmHg ABG HCO3 (21-25) mmol/L ABG Total CO2 (19-24) mmol/L ABG O2 Saturation (94-97) % Potassium 2.7 L* (3.5-5.1) mmol/L Chloride (98-107) mmol/L Carbon Dioxide (22-30) mmol/L BUN (7-17) mg/dL Creatinine (0.52-1.04) mg/dL Glucose (74-99) mg/dL POC Glucose (mg/dL) 399 H (75-99) mg/dL Phosphorus 0.7 L* (2.5-4.5) mg/dL 04/26/20 04/26/20 Range/Units 11:05 12:44 RBC (3.80-5.40) m/uL Plt Count (150-450) k/uL Lymphocytes # (1.0-4.8) k/uL ABG pH (7.35-7.45) ABG pCO2 (35-45) mmHg ABG pO2 (83-108) mmHg ABG HCO3 (21-25) mmol/L ABG Total CO2 (19-24) mmol/L ABG O2 Saturation (94-97) % Potassium (3.5-5.1) mmol/L Chloride (98-107) mmol/L Carbon Dioxide (22-30) mmol/L BUN (7-17) mg/dL Creatinine (0.52-1.04) mg/dL Glucose (74-99) mg/dL POC Glucose (mg/dL) 384 H 378 H (75-99) mg/dL Phosphorus (2.5-4.5) mg/dL Assessment and Plan Assessment: Impression: Acute hypoxic respiratory failure secondary to severe anion gap metabolic acidosis secondary to acute DKA. Acute diabetic ketoacidosis. Severe anion gap metabolic acidosis secondary to above. Acute metabolic encephalopathy is suspected secondary to profound hyperglycemia and severe acidosis. Multiple electrolytes abnormality including hyperkalemia, pseudohyponatremia, and acute kidney injury. Acute kidney injury, likely secondary to hypotension , acute tubular necrosis, and hypovolemia secondary to profound hyperglycemia. Strongly doubt sepsis. Type 1 diabetes, questionable compliance with significantly elevated hemoglobin A1c. Recommendation: Continue ventilatory support. Continue sedation, Continue DKA protocol. Continue GI and DVT prophylaxis. Continue insulin. Hold on enteral feeding at this point, we'll address this issue in a.m. Hopefully the patient could be extubated in the next 24 hours. Continue to correct hypokalemia and continue to monitor renal profile. Continue empiric antibiotics. Again strongly doubt sepsis. But considering the presentation, would continue empiric antibiotics for now. Continue IV fluids and try to avoid pressors if blood pressure response to less sedation and more fluids We'll continue to follow. Patient is critically ill. Discussed her condition yesterday with her mother. Critical care time is over 30 minutes Time with Patient: Greater than 30
[2020-04-26 14:34] LABS: Glucose,Whole Blood 374 mg/dL (75-99)
[2020-04-26 15:21] LABS: Glucose,Whole Blood 365 mg/dL (75-99)
[2020-04-26 16:32] LABS: Glucose,Whole Blood 284 mg/dL (75-99)
[2020-04-26 16:56] LABS: African American GFR (CKD) 15 (>60 ml/min/1.73 sqM); Anion Gap 7 mmol/L; Blood Urea Nitrogen 63 mg/dL (7-17); Calcium 8.3 mg/dL (8.4-10.2); Carbon Dioxide 21 mmol/L (22-30); Chloride 117 mmol/L (98-107); Glucose 285 mg/dL (74-99); Non-African American GFR(CKD) 13 (>60 ml/min/1.73 sqM); Potassium 3.7 mmol/L (3.5-5.1); Sodium 145 mmol/L (137-145)
[2020-04-26 17:06] LABS: Phosphorus <0.5 mg/dL (2.5-4.5)
[2020-04-26 18:02] LABS: Glucose,Whole Blood 256 mg/dL (75-99)
[2020-04-26] MEDS: NOREPINEPHRINE 32 MG in SODIUM CHLORIDE 0.9% 218 ML IV SCH (18:14)
[2020-04-26 19:17] LABS: Glucose,Whole Blood 244 mg/dL (75-99)
[2020-04-26 20:24] LABS: Glucose,Whole Blood 176 mg/dL (75-99)
[2020-04-26 21:57] LABS: Glucose,Whole Blood 130 mg/dL (75-99)
[2020-04-26 22:38] LABS: Glucose,Whole Blood 110 mg/dL (75-99)
[2020-04-26] MEDS ORDERED: SODIUM PHOSPH/0.9 NACL 10 MMOL in SALINE 100 100ML.BAG IVPB ONE (23:00)
[2020-04-26] MEDS: SODIUM CHLORIDE 0.9% 150 ML with VASOPRESSIN 60 UNIT IV SCH ×2 (23:00)
[2020-04-27 00:07] LABS: Glucose,Whole Blood 142 mg/dL (75-99)
[2020-04-27] MEDS: SODIUM CHLORIDE 0.45% 1,000 ML IV SCH ×3 (00:11→17:17)
[2020-04-27] MEDS: HEPARIN SODIUM,PORCINE 5,000 UNIT/ML 1 ML VIAL SQ SCH ×3 (00:12→16:39)
[2020-04-27] MEDS ORDERED: FUROSEMIDE 10 MG/ML 10 ML VIAL IV STA (00:41)
[2020-04-27 01:28] LABS: Glucose,Whole Blood 179 mg/dL (75-99)
[2020-04-27 02:47] LABS: Glucose,Whole Blood 189 mg/dL (75-99)
[2020-04-27 03:44] LABS: Glucose,Whole Blood 192 mg/dL (75-99)
[2020-04-27 05:14] LABS: Glucose,Whole Blood 168 mg/dL (75-99)
[2020-04-27 05:28] LABS: ABG Base Excess -3.4 mmol/L; ABG HCO3 20 mmol/L (21-25); ABG PCO2 29 mmHg (35-45); ABG PH 7.46 (7.35-7.45); ABG PO2 125 mmHg (83-108); ABG TCO2 21 mmol/L (19-24); Allen Test Performed? Yes
[2020-04-27 05:28] LABS: Basophils % (A) 0 %; Eosinophils # (A) 0.1 k/uL (0-0.7); Eosinophils % (A) 1 %; HCT 31.4 % (34.0-46.0); HGB 11.1 gm/dL (11.4-16.0); Lymphocytes # (A) 1.1 k/uL (1.0-4.8); Lymphocytes % (A) 9 %; MCH 33.3 pg (25.0-35.0); MCHC 35.3 g/dL (31.0-37.0); MCV 94.3 fL (80.0-100.0); Mean Platelet Volume 7.7; Monocytes # (A) 0.5 k/uL (0-1.0); Monocytes % (A) 4 %; Neutrophils # (A) 10.6 k/uL (1.3-7.7); Neutrophils % (A) 86 %; Platelet Count 120 k/uL (150-450); RBC 3.33 m/uL (3.80-5.40); RDW 14.2 % (11.5-15.5); WBC 12.4 k/uL (3.8-10.6)
[2020-04-27 05:48] LABS: Calcium 7.8 mg/dL (8.4-10.2); Phosphorus 1.3 mg/dL (2.5-4.5); Potassium 4.6 mmol/L (3.5-5.1)
[2020-04-27 06:02] LABS: Glucose,Whole Blood 217 mg/dL (75-99)
[2020-04-27] MEDS: POTASSIUM PHOSPHATE 10 MMOL in SODIUM CHLORIDE 0.9% 250 ML IV SCH (06:05)
[2020-04-27] MEDS: POTASSIUM CHLORIDE 20 MEQ in WATER FOR INJECTION 1 100ML.BAG IVPB SCH (06:05)
--- NOTE | 2020-04-27 06:40 | XR ---
EXAMINATION TYPE: XR chest 1V portable DATE OF EXAM: 04/27/2020 COMPARISON: 04/26/2020 HISTORY: SOB, Follow Up FINDINGS: Indwelling tubes and catheters are unchanged. Patchy basilar infiltrates. Correlate for underlying pneumonia. Stable appearance of the cardio-mediastinal structures at this time. Pleural effusion unchanged. IMPRESSION: 1. Patchy basilar infiltrates. Correlate for underlying pneumonia. Clinical correlation and follow up until resolution is recommended.
[2020-04-27 07:46] LABS: Glucose,Whole Blood 171 mg/dL (75-99)
[2020-04-27] MEDS: PANTOPRAZOLE 40 MG/10 ML VIAL IVP SCH (08:13)
[2020-04-27] MEDS: PIPERACILLIN-TAZOBACTAM 3.375 GM in SODIUM CHLORIDE 0.9% 100 ML IVPB SCH ×2 (08:14→21:40)
[2020-04-27] MEDS: CHLORHEXIDINE GLUCONATE 15 ML CUP MUCOUS MEM SCH (08:15)
[2020-04-27 09:04] LABS: Glucose,Whole Blood 194 mg/dL (75-99)
[2020-04-27] MEDS ORDERED: SODIUM CHLORIDE 0.9% 1,000 ML IV ONE (09:08)
[2020-04-27] MEDS: D5-0.45% NACL WITH KCL 20MEQ/L 1,000 ML IV SCH ×2 (09:38→16:18)
[2020-04-27 09:58] LABS: Glucose,Whole Blood 193 mg/dL (75-99)
[2020-04-27] MEDS: SODIUM PHOSPHATE 10 MMOL in SODIUM CHLORIDE 0.9% 100 ML IVPB SCH ×4 (10:10→19:02)
[2020-04-27 11:10] LABS: Glucose,Whole Blood 223 mg/dL (75-99)
[2020-04-27 11:11] LABS: ABG Base Excess -5.9 mmol/L; ABG HCO3 19 mmol/L (21-25); ABG PCO2 30 mmHg (35-45); ABG PO2 130 mmHg (83-108); ABG TCO2 20 mmol/L (19-24); Allen Test Performed? Yes
[2020-04-27 12:10] LABS: Glucose,Whole Blood 254 mg/dL (75-99)
[2020-04-27 12:55] LABS: Glucose,Whole Blood 226 mg/dL (75-99)
--- NOTE | 2020-04-27 12:55 | P.PN ---
Subjective 40-year-old female with known diabetic found unresponsive. Patient talked to the family members on Wednesday night after that the patient never responded to texts, family found her unresponsive in her own bed. Patient is found to be severely hypothermic bradycardic severely acidotic with pH of 6.5 with highly elevated blood sugar of 1200. And has to be intubated for protection of airway. Patient is presently on set up respiratory rate of 24 because of severe metabolic acidosis patient was started on IV insulin presently in normal saline and was to half-normal 7 because of hyperchloremia patient is also on bicarbonate drip along with norepinephrine and around the 13 g. Patient has a severe electrolyte abnormalities patient also had respiratory acidosis. Patient has highly elevated potassium patient received the calcium gluconate presently receiving bicarbonate and is also on IV insulin and this potassium potassium has come down now. 05/24/2020 Patient remains intubated had had a metabolic acidosis significantly improved patient pCO2 is a 29 pH is 7.39. Patient is on basic when setting send a set up respiratory of 24 at this time. We will wean off her sedation. Patient is presently unresponsive because of sedation. Patient's nystagmus improved. Patient is presently on around the 6-7 mcg/h of norepinephrine. Patient is also on very low dose of vasopressin the stool will be weaned off. Patient the DKA resolved but blood sugars remained high because of the D5 which she is receiving for bicarbonate drip which will be discontinued at this time patient will be continued on half-normal saline with insulin was a blood sugars come down to 300 also check to long-acting insulin dose will be decided depending on if patient will receive nutrition are not today. Patient will also be on sliding scale and additionally on pre-meal insulin as well. Patient's phosphorus is extremely low which will be replaced. Anion gap improved to 12 but the patient's bicarbonate is only 14 this is because of hyperchloremia. 04/27/2020 Patient is extubated today patient is waking up, still barely responsive to verbal still alive. Patient chest x-ray showing bilateral infiltrates and leukocytosis because patient was started on empiric empiric Zosyn for possible aspiration pneumonia. Patient's anion gap resolved yesterday patient still on D5 half-normal saline with insulin which will be transitioned to subcutaneous insulin whenever she needs then patient will be started on pre-meal insulin until then patient will be on every 6 hourly sliding scale. Patient will be continued and transitioned to half-normal saline. Will not require any potassium supplementation at this time patient creatinine still high nephrology was consulted. Creatinine is actually worse to 4.5 and patient's personal for being discontinued at this time. Patient does have urine output Review of systems: Unable to obtain due to her clinical condition All inpatient medications were reviewed and appropriate changes in these medications as dictated in the interval history and assessment and plan. Objective - Vital Signs Vital signs: Vital Signs Temp 97.7 F 04/27/20 12:00 Pulse 109 H 04/27/20 12:30 Resp 25 H 04/27/20 12:30 BP 89/58 04/27/20 12:30 Pulse Ox 99 04/27/20 12:30 Intake & Output 04/26/20 04/27/20 04/27/20 18:59 06:59 18:59 Intake Total 3145.593 2515.374 2109.650 Output Total 490 507 340 Balance 2655.593 2008.374 1769.650 Weight 74.3 kg 77.6 kg Intake: IV 2875 2275 2000 D5-0.45% NaCl with KCl 450 20Meq/l 1,000 ml @ 150 mls/hr IV .Q6H40M JANELL Rx# :[id number] Dextrose 5%-0.45% NaCl 1, 150 000 ml @ 150 mls/hr IV . Q7H40M ONE with Sod Bicarb Syr 8.4% (1 Meq/ml ) 150 ml Rx#:[id number] Piperacillin-Tazobactam 3 100 100 .375 gm In Sodium Chloride 0.9% 100 ml @ 25 mls/hr IVPB Q8HR FOR[facility]LY [facility], [facility]–1983 Rx# :[id number] Potassium Chloride 20 meq 600 100 In Water For Injection 1 100ml.bag @ 50 mls/hr IVPB ONCE STA Rx#: [id number] Potassium Phosphate 10 375 375 mmol In Sodium Chloride 0 .9% 250 ml @ 125 mls/hr IV Q2H JANELL Rx#:[id number] Sodium Chloride 0.45% 1, 1650 450 000 ml @ 150 mls/hr IV . Q6H40M JANELL Rx#:[id number] Sodium Chloride 0.45% 1, 1650 150 000 ml @ 200 mls/hr IV . Q5H [facility], [facility]1983 Rx#:[id number] Sodium Chloride 0.9% 1, 1000 000 ml @ 999 mls/hr IV . Q1H1M ONE Rx#:[id number] Intake, IV Titration 270.593 240.374 109.650 Amount Insulin Regular 100 unit 70.642 73.875 27.125 In Sodium Chloride 0.9% 100 ml @ 0.1 UNITS/KG/HR 6.484 mls/hr IV .[id number] JANELL Rx#:[id number] Norepinephrine 32 mg In 53.515 60.035 16.592 Sodium Chloride 0.9% 218 ml @ 0.05 MCG/KG/MIN 1. 505 mls/hr IV .Q24H JANELL Rx#:[id number] Sodium Chloride 0.9% 150 46.436 ml @ 0.03 UNITS/MIN 4.59 mls/hr IV .Q24H JANELL with Vasopressin 60 unit Rx#: [id number] propofoL 500 mg In Empty 100.000 106.464 65.933 Bag 1 bag @ Titrate IV . Q0M JANELL Rx#:[id number] Output: Urine 490 507 340 Other: Voiding Method Indwelling Catheter Indwelling Catheter # Bowel Movements 1 2 ABP, PAP, CO, CI - Last Documented Arterial Blood Pressure 98/80 - Exam PHYSICAL EXAMINATION: GENERAL: She is extubated barely arousable although waking up HEENT: Pupils are round and equally reacting to light. EOMI. No scleral icterus. No conjunctival pallor. Normocephalic, atraumatic. No pharyngeal erythema. No thyromegaly. CARDIOVASCULAR: S1 and S2 present. No murmurs, rubs, or gallops. PULMONARY: Chest is clear to auscultation, no wheezing or crackles. ABDOMEN: Soft, nontender, nondistended, normoactive bowel sounds. No palpable organomegaly. MUSCULOSKELETAL: No joint swelling or deformity. EXTREMITIES: No cyanosis, clubbing, or pedal edema. NEUROLOGICAL: Drowsy excessively sleepy SKIN: Patient does have some bruises and deep discoloration of the skin because of laying on the bed at home. - Labs CBC & Chem 7: 04/27/20 04:44 04/27/20 04:44 Labs: Abnormal Lab Results - Last 24 Hours (Table) 04/26/20 04/26/20 04/26/20 Range/Units 14:32 15:19 16:29 WBC (3.8-10.6) k/uL RBC (3.80-5.40) m/uL Hgb (11.4-16.0) gm/dL Hct (34.0-46.0) % Plt Count (150-450) k/uL Neutrophils # (1.3-7.7) k/uL ABG pH (7.35-7.45) ABG pCO2 (35-45) mmHg ABG pO2 (83-108) mmHg ABG HCO3 (21-25) mmol/L ABG O2 Saturation (94-97) % Chloride (98-107) mmol/L Carbon Dioxide (22-30) mmol/L BUN (7-17) mg/dL Creatinine (0.52-1.04) mg/dL Glucose (74-99) mg/dL POC Glucose (mg/dL) 374 H 365 H 284 H (75-99) mg/dL Calcium (8.4-10.2) mg/dL Phosphorus (2.5-4.5) mg/dL 04/26/20 04/26/20 04/26/20 Range/Units 16:39 18:02 19:15 WBC (3.8-10.6) k/uL RBC (3.80-5.40) m/uL Hgb (11.4-16.0) gm/dL Hct (34.0-46.0) % Plt Count (150-450) k/uL Neutrophils # (1.3-7.7) k/uL ABG pH (7.35-7.45) ABG pCO2 (35-45) mmHg ABG pO2 (83-108) mmHg ABG HCO3 (21-25) mmol/L ABG O2 Saturation (94-97) % Chloride 117 H (98-107) mmol/L Carbon Dioxide 21 L (22-30) mmol/L BUN 63 H (7-17) mg/dL Creatinine 4.03 H (0.52-1.04) mg/dL Glucose 285 H (74-99) mg/dL POC Glucose (mg/dL) 256 H 244 H (75-99) mg/dL Calcium 8.3 L (8.4-10.2) mg/dL Phosphorus <0.5 L* (2.5-4.5) mg/dL 04/26/20 04/26/20 04/26/20 Range/Units 20:13 21:54 22:36 WBC (3.8-10.6) k/uL RBC (3.80-5.40) m/uL Hgb (11.4-16.0) gm/dL Hct (34.0-46.0) % Plt Count (150-450) k/uL Neutrophils # (1.3-7.7) k/uL ABG pH (7.35-7.45) ABG pCO2 (35-45) mmHg ABG pO2 (83-108) mmHg ABG HCO3 (21-25) mmol/L ABG O2 Saturation (94-97) % Chloride (98-107) mmol/L Carbon Dioxide (22-30) mmol/L BUN (7-17) mg/dL Creatinine (0.52-1.04) mg/dL Glucose (74-99) mg/dL POC Glucose (mg/dL) 176 H 130 H 110 H (75-99) mg/dL Calcium (8.4-10.2) mg/dL Phosphorus (2.5-4.5) mg/dL 04/27/20 04/27/20 04/27/20 Range/Units 00:06 01:26 02:46 WBC (3.8-10.6) k/uL RBC (3.80-5.40) m/uL Hgb (11.4-16.0) gm/dL Hct (34.0-46.0) % Plt Count (150-450) k/uL Neutrophils # (1.3-7.7) k/uL ABG pH (7.35-7.45) ABG pCO2 (35-45) mmHg ABG pO2 (83-108) mmHg ABG HCO3 (21-25) mmol/L ABG O2 Saturation (94-97) % Chloride (98-107) mmol/L Carbon Dioxide (22-30) mmol/L BUN (7-17) mg/dL Creatinine (0.52-1.04) mg/dL Glucose (74-99) mg/dL POC Glucose (mg/dL) 142 H 179 H 189 H (75-99) mg/dL Calcium (8.4-10.2) mg/dL Phosphorus (2.5-4.5) mg/dL 04/27/20 04/27/20 04/27/20 Range/Units 03:42 04:44 04:44 WBC 12.4 H (3.8-10.6) k/uL RBC 3.33 L (3.80-5.40) m/uL Hgb 11.1 L (11.4-16.0) gm/dL Hct 31.4 L (34.0-46.0) % Plt Count 120 L (150-450) k/uL Neutrophils # 10.6 H (1.3-7.7) k/uL ABG pH (7.35-7.45) ABG pCO2 (35-45) mmHg ABG pO2 (83-108) mmHg ABG HCO3 (21-25) mmol/L ABG O2 Saturation (94-97) % Chloride 117 H (98-107) mmol/L Carbon Dioxide 19 L (22-30) mmol/L BUN 65 H (7-17) mg/dL Creatinine 4.51 H (0.52-1.04) mg/dL Glucose 190 H (74-99) mg/dL POC Glucose (mg/dL) 192 H (75-99) mg/dL Calcium 7.8 L (8.4-10.2) mg/dL Phosphorus 1.3 L (2.5-4.5) mg/dL 04/27/20 04/27/20 04/27/20 Range/Units 05:13 05:26 06:01 WBC (3.8-10.6) k/uL RBC (3.80-5.40) m/uL Hgb (11.4-16.0) gm/dL Hct (34.0-46.0) % Plt Count (150-450) k/uL Neutrophils # (1.3-7.7) k/uL ABG pH 7.46 H (7.35-7.45) ABG pCO2 29 L (35-45) mmHg ABG pO2 125 H (83-108) mmHg ABG HCO3 20 L (21-25) mmol/L ABG O2 Saturation 100.0 H (94-97) % Chloride (98-107) mmol/L Carbon Dioxide (22-30) mmol/L BUN (7-17) mg/dL Creatinine (0.52-1.04) mg/dL Glucose (74-99) mg/dL POC Glucose (mg/dL) 168 H 217 H (75-99) mg/dL Calcium (8.4-10.2) mg/dL Phosphorus (2.5-4.5) mg/dL 04/27/20 04/27/20 04/27/20 Range/Units 07:44 09:02 09:57 WBC (3.8-10.6) k/uL RBC (3.80-5.40) m/uL Hgb (11.4-16.0) gm/dL Hct (34.0-46.0) % Plt Count (150-450) k/uL Neutrophils # (1.3-7.7) k/uL ABG pH (7.35-7.45) ABG pCO2 (35-45) mmHg ABG pO2 (83-108) mmHg ABG HCO3 (21-25) mmol/L ABG O2 Saturation (94-97) % Chloride (98-107) mmol/L Carbon Dioxide (22-30) mmol/L BUN (7-17) mg/dL Creatinine (0.52-1.04) mg/dL Glucose (74-99) mg/dL POC Glucose (mg/dL) 171 H 194 H 193 H (75-99) mg/dL Calcium (8.4-10.2) mg/dL Phosphorus (2.5-4.5) mg/dL 04/27/20 04/27/20 04/27/20 Range/Units 11:00 11:08 12:09 WBC (3.8-10.6) k/uL RBC (3.80-5.40) m/uL Hgb (11.4-16.0) gm/dL Hct (34.0-46.0) % Plt Count (150-450) k/uL Neutrophils # (1.3-7.7) k/uL ABG pH (7.35-7.45) ABG pCO2 30 L (35-45) mmHg ABG pO2 130 H (83-108) mmHg ABG HCO3 19 L (21-25) mmol/L ABG O2 Saturation 100.0 H (94-97) % Chloride (98-107) mmol/L Carbon Dioxide (22-30) mmol/L BUN (7-17) mg/dL Creatinine (0.52-1.04) mg/dL Glucose (74-99) mg/dL POC Glucose (mg/dL) 223 H 254 H (75-99) mg/dL Calcium (8.4-10.2) mg/dL Phosphorus (2.5-4.5) mg/dL Microbiology - Last 24 Hours (Table) 04/26/20 07:49 Gram Stain - Preliminary Sputum Sputum Culture - Preliminary Strep agalactiae - (group b) 04/25/20 14:44 Blood Culture - Preliminary Blood No Growth after 24 hours Assessment and Plan Plan: -Profound metabolic acidosis: Secondary to diabetic ketoacidosis and lactic acidosis and hyperkalemia. Patient is extubated on 04/27/2020. Barely arousable. Patient remains acidotic because of uremia renal failure and hyperchloremia 1 acute respiratory failure secondary to hypovolemic shock, diabetic ketoacidosis presently extubated -Altered mental status, unresponsive state: Patient has respiratory failure secondary to this patient is presently intubated CT did not show any significant abnormality and this is secondary to profound metabolic acidosis and metabolic encephalopathy. -Possible aspiration pneumonia for which the patient was started on Zosyn -Acute kidney injury : Most probably secondary to acute tubular necrosis from severe hypotension along with prerenal azotemia -Hypovolemic shock: Secondary to severe intravascular volume depletion, patient is weaned off pressors -Type 1 diabetes mellitus -Leukocytosis mostly reactive in nature -Pseudohyponatremia improved with IV fluids, -Hypothermia: Secondary to hypovolemic shock, improved -DVT prophylaxis with the heparin. GI prophylaxis with Protonix
--- NOTE | 2020-04-27 12:56 | P.PN ---
Subjective Progress Note Date: 04/27/20 Principal diagnosis: Acute diabetic ketoacidosis 40-year-old female patient with past history of diabetes mellitus type 1, who was brought into the hospital on 04/25/2020 per EMS for evaluation of altered mental status. The patient is a schoolteacher, she lives by herself, and there were 2 snow days related to the weather. Today patient did not show up for work and the patient's family had not heard from the patient for 2 days and that when they went over to check on her patient was only responsive to painful stimuli and was just moaning and groaning. She was bradycardic when EMS arrived with heart rate in the 40s. There was no evidence of any traumatic injury. Blood sugar was checked at the scene and was too high for a read on the glucometer and patient was very cold. Blood pressure was within normal limits. Patient was extremely hypothermic, she had possibly been in bed for the last 48 hours. Blood gas was obtained in the emergency department showing pH of less than 6.8, pCO2 of 20, pO2 of greater than 400, and bicarbonate concentration of 2 this was done on FiO2 100%. BMP revealed potassium of 8, bicarbonate concentration of less than 5, glucose was 1234, BUN was 51 and creatinine was 4.05. Urinalysis showed 4+ glucose, 2+ proteins, 2+ ketones, serum acetone was positive. White blood cell count was 15.7, hemoglobin is 14.8, hematocrit was 51.2, with MCV of 117, and marked macrocytosis. Coronavirus PCR was negative. Patient was given a total of 4 L in fluid boluses, was started on insulin infusion per DKA protocol, she received 1 amp of sodium bicarbonate and was started on D5 half-normal saline with 3 A of bicarb at 200 ML per hour. Patient was intubated and placed on mechanical ventilator. Current vent settings are assist control mode of ventilation with a rate of 20, tidal lines 450, FiO2 of 40% and PEEP of 5. Brain CT showed no acute intracranial process. Chest x-ray showed mild interstitial prominence, no consolidation or pleural effusion, ET tube was noted to be 1.9 cm from the hany. NG-tube was inserted and was noted to be above the GE junction with the recommendation to advanced at 6 cm further into the stomach. Patient was hypothermic with a temp of 84.6 on arrival, hypotensive, she is receiving fluid boluses. She continues on bicarbonate drip at 200 ML per hour, however her blood pressure is still low in the 80s over 40s, patient is not on any sedation, she is unresponsive. Her temperature has improved, last rectal temp is 98.6F. Recheck blood work was obtained showing potassium of 4.3, sodium is 137, bicarbonate concentration is less than 5, BUN is 50, creatinine is 3.32, GFR is 17, glucose is 903, blood gas showed pO2 of 212, pCO2 of 17, and pH of 6.88. Patient was reevaluated today on 04/26/2020, patient remains in the ICU, intubated and mechanically ventilated. Her ventilator settings are assist control rate of 24 FiO2 is 30% tidal volume is 450 and PEEP is 5. ABG showed a pO2 of 119 pCO2 of 29 pH of 7.32. Bicarb is 14, anion gap is 12. Blood sugar remains in the 500 range. Patient remains on propofol at 15 mcg/kg/m, discontinued her bicarb drip, remains on insulin at 14.5 units per hour. Patient is now hemodynamically stable, required norepinephrine and vasopressin yesterday and she received significant amount of fluids almost over 7 L. Her low blood pressure seems to be mostly related to propofol, when the patient was taken off propofol this morning, her blood pressure was as high as 160s systolic. As soon as she was placed back on propofol, there was clearly evide nce of drop in her blood pressure. Off propofol, patient was restless and agitated, thrashing in bed, would not follow any instructions, and clearly based on her overall clinical status, she is not ready to be weaned, hence I recommended just goes back on propofol. CBC is relatively normal. Potassium remains low at 2.7, patient is receiving significant amount of potassium for replacement. Renal profile is abnormal with a BUN of 59 and creatinine of 3.62 chest x-ray is relatively unremarkable. Patient was reevaluated today on 04/27/2020, remains in the ICU, intubated and mechanically ventilated. Patient remains on assist control mode of mechanical ventilation, rate is 24, tidal volume is 450 FiO2 is 30%, and PEEP is 5. ABG showed a pO2 of 125 pCO2 of 29 pH of 7.46. Patient remains on propofol at 40 mcg/kg/m, remains on norepinephrine at 0.08 mcg/kg/m, requirement seems to be higher and the propofol dose is increased. She is on insulin at 5.6 units per hour, her sugars are running in the range of 160, and I recommended stopping her 0.9 normal saline, and went to D5 45 at 150 ML per hour, and we will get the insulin dose down and likely discontinue and eventually transitioned to subcu insulin and Lantus insulin. Her renal functioning however is quite concerning, she continues to have elevated creatinine and I requested a nephrology consultation on this patient. I am not certain whether this is an acute kidney injury or chronic kidney injury or both, patient may have had chronic kidney injury related to her ongoing diabetes./Diabetic nephropathy. Today I have held her propofol, and I plan to give the patient a trial of pressure support and CPAP when she is awake, and if she does well I will likely extubate the patient. I did recommend more fluids to be given hopefully will get rid of norepinephrine today. Urine output is good however she required Lasix yesterday because it dropped down significantly in spite of significant amount of fluids given since admission probably over 8 L however the urine output improved with Lasix. And she continues to have almost 50 mL per hour. CBC today is relatively normal. Electrolytes are normal, bicarb is up to 20, and her anion gap is 8/corrected. BUN is 65 creatinine 4.51. Admission creatinine was 4.05. Cortisol level was 47. Phosphorus is being corrected as per protocol, was as low as 0.5 yesterday, it is 1.3 today Objective - Vital Signs Vital signs: Vital Signs Temp 97.7 F 04/27/20 12:00 Pulse 109 H 04/27/20 12:30 Resp 25 H 04/27/20 12:30 BP 89/58 04/27/20 12:30 Pulse Ox 99 04/27/20 12:30 Intake & Output 04/26/20 04/27/20 04/27/20 18:59 06:59 18:59 Intake Total 3145.593 2515.374 2109.650 Output Total 490 507 340 Balance 2655.593 2008.374 1769.650 Weight 74.3 kg 77.6 kg Intake: IV 3825 1575 2000 D5-0.45% NaCl with KCl 450 20Meq/l 1,000 ml @ 150 mls/hr IV .Q6H40M [facility] Rx# :[id number] Dextrose 5%-0.45% NaCl 1, 150 000 ml @ 150 mls/hr IV . Q7H40M ONE with Sod Bicarb Syr 8.4% (1 Meq/ml ) 150 ml Rx#:[id number] Piperacillin-Tazobactam 3 100 100 .375 gm In Sodium Chloride 0.9% 100 ml @ 25 mls/hr IVPB Q8HR [facility] Rx# :[id number] Potassium Chloride 20 meq 600 100 In Water For Injection 1 100ml.bag @ 50 mls/hr IVPB ONCE STA Rx#: [id number] Potassium Phosphate 10 375 375 mmol In Sodium Chloride 0 .9% 250 ml @ 125 mls/hr IV Q2H [facility] Rx#:[id number] Sodium Chloride 0.45% 1, 1650 450 000 ml @ 150 mls/hr IV . Q6H40M [facility] Rx#:[id number] Sodium Chloride 0.45% 1, 1650 150 000 ml @ 200 mls/hr IV . Q5H [facility] Rx#:[id number] Sodium Chloride 0.9% 1, 1000 000 ml @ 999 mls/hr IV . Q1H1M ONE Rx#:[id number] Intake, IV Titration 270.593 240.374 109.650 Amount Insulin Regular 100 unit 70.642 73.875 27.125 In Sodium Chloride 0.9% 100 ml @ 0.1 UNITS/KG/HR 6.484 mls/hr IV .[id number] [facility] Rx#:[id number] Norepinephrine 32 mg In 53.515 60.035 16.592 Sodium Chloride 0.9% 218 ml @ 0.05 MCG/KG/MIN 1. 505 mls/hr IV .Q24H [facility] Rx#:[id number] Sodium Chloride 0.9% 150 46.436 ml @ 0.03 UNITS/MIN 4.59 mls/hr IV .Q24H [facility] with Vasopressin 60 unit Rx#: [id number] propofoL 500 mg In Empty 100.000 106.464 65.933 Bag 1 bag @ Titrate IV . Q0M [facility] Rx#:[id number] Output: Urine 490 507 340 Other: Voiding Method Indwelling Catheter Indwelling Catheter # Bowel Movements 1 ABP, PAP, CO, CI - Last Documented Arterial Blood Pressure 98/80 - Exam GENERAL EXAM: Revealed a 40-year-old female intubated, mechanically ventilated, on propofol drip. HEAD: Normocephalic/atraumatic. HEENT: PERRLA, EOMI, anicteric, moist mucous membranes, endotracheal tube and orogastric tube are intact CHEST: No chest wall deformity. Symmetrical expansion. LUNGS: Equal air entry with no crackles, wheeze, rhonchi or dullness. CVS: Regular rate and rhythm, normal S1 and S2, no gallops, no murmurs, no rubs ABDOMEN: Soft, nontender. No hepatosplenomegaly, normal bowel sounds, no guarding or rigidity. EXTREMITIES: No clubbing, no edema, no cyanosis, 2+ pulses and upper and lower extremities. MUSCULOSKELETAL: Moving all extremities, could not actually assess otherwise SPINE: No scoliosis or deformity SKIN: No rashes CENTRAL NERVOUS SYSTEM: The dated, on propofol, could not assess. Psychiatric: Could not assess - Labs CBC & Chem 7: 04/27/20 04:44 04/27/20 04:44 Labs: Abnormal Lab Results - Last 24 Hours (Table) 04/26/20 04/26/20 04/26/20 Range/Units 12:44 14:32 15:19 WBC (3.8-10.6) k/uL RBC (3.80-5.40) m/uL Hgb (11.4-16.0) gm/dL Hct (34.0-46.0) % Plt Count (150-450) k/uL Neutrophils # (1.3-7.7) k/uL ABG pH (7.35-7.45) ABG pCO2 (35-45) mmHg ABG pO2 (83-108) mmHg ABG HCO3 (21-25) mmol/L ABG O2 Saturation (94-97) % Chloride (98-107) mmol/L Carbon Dioxide (22-30) mmol/L BUN (7-17) mg/dL Creatinine (0.52-1.04) mg/dL Glucose (74-99) mg/dL POC Glucose (mg/dL) 378 H 374 H 365 H (75-99) mg/dL Calcium (8.4-10.2) mg/dL Phosphorus (2.5-4.5) mg/dL 04/26/20 04/26/20 04/26/20 Range/Units 16:29 16:39 18:02 WBC (3.8-10.6) k/uL RBC (3.80-5.40) m/uL Hgb (11.4-16.0) gm/dL Hct (34.0-46.0) % Plt Count (150-450) k/uL Neutrophils # (1.3-7.7) k/uL ABG pH (7.35-7.45) ABG pCO2 (35-45) mmHg ABG pO2 (83-108) mmHg ABG HCO3 (21-25) mmol/L ABG O2 Saturation (94-97) % Chloride 117 H (98-107) mmol/L Carbon Dioxide 21 L (22-30) mmol/L BUN 63 H (7-17) mg/dL Creatinine 4.03 H (0.52-1.04) mg/dL Glucose 285 H (74-99) mg/dL POC Glucose (mg/dL) 284 H 256 H (75-99) mg/dL Calcium 8.3 L (8.4-10.2) mg/dL Phosphorus <0.5 L* (2.5-4.5) mg/dL 04/26/20 04/26/20 04/26/20 Range/Units 19:15 20:13 21:54 WBC (3.8-10.6) k/uL RBC (3.80-5.40) m/uL Hgb (11.4-16.0) gm/dL Hct (34.0-46.0) % Plt Count (150-450) k/uL Neutrophils # (1.3-7.7) k/uL ABG pH (7.35-7.45) ABG pCO2 (35-45) mmHg ABG pO2 (83-108) mmHg ABG HCO3 (21-25) mmol/L ABG O2 Saturation (94-97) % Chloride (98-107) mmol/L Carbon Dioxide (22-30) mmol/L BUN (7-17) mg/dL Creatinine (0.52-1.04) mg/dL Glucose (74-99) mg/dL POC Glucose (mg/dL) 244 H 176 H 130 H (75-99) mg/dL Calcium (8.4-10.2) mg/dL Phosphorus (2.5-4.5) mg/dL 04/26/20 04/27/20 04/27/20 Range/Units 22:36 00:06 01:26 WBC (3.8-10.6) k/uL RBC (3.80-5.40) m/uL Hgb (11.4-16.0) gm/dL Hct (34.0-46.0) % Plt Count (150-450) k/uL Neutrophils # (1.3-7.7) k/uL ABG pH (7.35-7.45) ABG pCO2 (35-45) mmHg ABG pO2 (83-108) mmHg ABG HCO3 (21-25) mmol/L ABG O2 Saturation (94-97) % Chloride (98-107) mmol/L Carbon Dioxide (22-30) mmol/L BUN (7-17) mg/dL Creatinine (0.52-1.04) mg/dL Glucose (74-99) mg/dL POC Glucose (mg/dL) 110 H 142 H 179 H (75-99) mg/dL Calcium (8.4-10.2) mg/dL Phosphorus (2.5-4.5) mg/dL 04/27/20 04/27/20 04/27/20 Range/Units 02:46 03:42 04:44 WBC 12.4 H (3.8-10.6) k/uL RBC 3.33 L (3.80-5.40) m/uL Hgb 11.1 L (11.4-16.0) gm/dL Hct 31.4 L (34.0-46.0) % Plt Count 120 L (150-450) k/uL Neutrophils # 10.6 H (1.3-7.7) k/uL ABG pH (7.35-7.45) ABG pCO2 (35-45) mmHg ABG pO2 (83-108) mmHg ABG HCO3 (21-25) mmol/L ABG O2 Saturation (94-97) % Chloride (98-107) mmol/L Carbon Dioxide (22-30) mmol/L BUN (7-17) mg/dL Creatinine (0.52-1.04) mg/dL Glucose (74-99) mg/dL POC Glucose (mg/dL) 189 H 192 H (75-99) mg/dL Calcium (8.4-10.2) mg/dL Phosphorus (2.5-4.5) mg/dL 04/27/20 04/27/20 04/27/20 Range/Units 04:44 05:13 05:26 WBC (3.8-10.6) k/uL RBC (3.80-5.40) m/uL Hgb (11.4-16.0) gm/dL Hct (34.0-46.0) % Plt Count (150-450) k/uL Neutrophils # (1.3-7.7) k/uL ABG pH 7.46 H (7.35-7.45) ABG pCO2 29 L (35-45) mmHg ABG pO2 125 H (83-108) mmHg ABG HCO3 20 L (21-25) mmol/L ABG O2 Saturation 100.0 H (94-97) % Chloride 117 H (98-107) mmol/L Carbon Dioxide 19 L (22-30) mmol/L BUN 65 H (7-17) mg/dL Creatinine 4.51 H (0.52-1.04) mg/dL Glucose 190 H (74-99) mg/dL POC Glucose (mg/dL) 168 H (75-99) mg/dL Calcium 7.8 L (8.4-10.2) mg/dL Phosphorus 1.3 L (2.5-4.5) mg/dL 04/27/20 04/27/20 04/27/20 Range/Units 06:01 07:44 09:02 WBC (3.8-10.6) k/uL RBC (3.80-5.40) m/uL Hgb (11.4-16.0) gm/dL Hct (34.0-46.0) % Plt Count (150-450) k/uL Neutrophils # (1.3-7.7) k/uL ABG pH (7.35-7.45) ABG pCO2 (35-45) mmHg ABG pO2 (83-108) mmHg ABG HCO3 (21-25) mmol/L ABG O2 Saturation (94-97) % Chloride (98-107) mmol/L Carbon Dioxide (22-30) mmol/L BUN (7-17) mg/dL Creatinine (0.52-1.04) mg/dL Glucose (74-99) mg/dL POC Glucose (mg/dL) 217 H 171 H 194 H (75-99) mg/dL Calcium (8.4-10.2) mg/dL Phosphorus (2.5-4.5) mg/dL 04/27/20 04/27/20 04/27/20 Range/Units 09:57 11:00 11:08 WBC (3.8-10.6) k/uL RBC (3.80-5.40) m/uL Hgb (11.4-16.0) gm/dL Hct (34.0-46.0) % Plt Count (150-450) k/uL Neutrophils # (1.3-7.7) k/uL ABG pH (7.35-7.45) ABG pCO2 30 L (35-45) mmHg ABG pO2 130 H (83-108) mmHg ABG HCO3 19 L (21-25) mmol/L ABG O2 Saturation 100.0 H (94-97) % Chloride (98-107) mmol/L Carbon Dioxide (22-30) mmol/L BUN (7-17) mg/dL Creatinine (0.52-1.04) mg/dL Glucose (74-99) mg/dL POC Glucose (mg/dL) 193 H 223 H (75-99) mg/dL Calcium (8.4-10.2) mg/dL Phosphorus (2.5-4.5) mg/dL 04/27/20 Range/Units 12:09 WBC (3.8-10.6) k/uL RBC (3.80-5.40) m/uL Hgb (11.4-16.0) gm/dL Hct (34.0-46.0) % Plt Count (150-450) k/uL Neutrophils # (1.3-7.7) k/uL ABG pH (7.35-7.45) ABG pCO2 (35-45) mmHg ABG pO2 (83-108) mmHg ABG HCO3 (21-25) mmol/L ABG O2 Saturation (94-97) % Chloride (98-107) mmol/L Carbon Dioxide (22-30) mmol/L BUN (7-17) mg/dL Creatinine (0.52-1.04) mg/dL Glucose (74-99) mg/dL POC Glucose (mg/dL) 254 H (75-99) mg/dL Calcium (8.4-10.2) mg/dL Phosphorus (2.5-4.5) mg/dL Microbiology - Last 24 Hours (Table) 04/26/20 07:49 Gram Stain - Preliminary Sputum Sputum Culture - Preliminary Strep agalactiae - (group b) 04/25/20 14:44 Blood Culture - Preliminary Blood No Growth after 24 hours Assessment and Plan Assessment: Impression: Acute hypoxic respiratory failure secondary to severe anion gap metabolic acidosis secondary to acute DKA. Acute diabetic ketoacidosis. Severe anion gap metabolic acidosis secondary to above. Acute metabolic encephalopathy is suspected secondary to profound hyperglycemia and severe acidosis. Multiple electrolytes abnormality including hyperkalemia, pseudohyponatremia, and acute kidney injury. Acute kidney injury, likely secondary to hypotension , acute tubular necrosis, and hypovolemia secondary to profound hyperglycemia. Strongly doubt sepsis. Type 1 diabetes, questionable compliance with significantly elevated hemoglobin A1c. Recommendation: Continue ventilatory support. However I plan to hold propofol, I also plan to give the patient at least a weaning trial once she is awake, and should be transitioned from assist-control mode of mechanical ventilation to pressure support with CPAP, this will all depend on the mental status improvement once off propofol. Continue DKA protocol. Sugars are running low, hence we will change the IV fluid to D5 45, and taper the insulin down slowly. Until discontinued. Continue GI and DVT prophylaxis. Continue insulin. May transition today to Accu-Cheks and sliding scale coverage. Patient will be placed on ADA diet if extubated today Continue to correct abnormal electrolytes. Nephrology consultation regarding her acute kidney injury was requested Continue empiric antibiotics. Again strongly doubt sepsis. But considering the presentation, would continue empiric antibiotics for now. Taper and possibly discontinue norepinephrine, given fluid boluses for marginal blood pressure if necessary We'll continue to follow. Patient is critically ill. Continue to monitor in the ICU even if extubated today. Critical care time is over 30 minutes Time with Patient: Greater than 30
[2020-04-27] MEDS ORDERED: SODIUM CHLORIDE 0.45% 1,000 ML IV SCH (14:00)
[2020-04-27] MEDS ORDERED: INSULIN ASPART (NovoLOG) 100 UNIT/ML VIAL SQ SCH ×2 (14:00→18:00)
[2020-04-27 14:14] LABS: Glucose,Whole Blood 213 mg/dL (75-99)
[2020-04-27] MEDS: INSULIN REGULAR 100 UNIT in SODIUM CHLORIDE 0.9% 100 ML IV SCH (14:15)
--- NOTE | 2020-04-27 14:55 | CONS ---
CONSULTATION REASON FOR CONSULT: Renal failure, hyperkalemia. HISTORY OF PRESENT ILLNESS: Patient is a 40-year-old female who was admitted to the hospital with mental status changes. The patient's family had not heard from her and EMS was sent. The patient was barely responsive and when they arrived, she was bradycardic. The patient was intubated. Blood sugar was noted to be significantly elevated. It was reported more than 600 for many hours after admission. The patient was also quite acidotic with a CO2 of less than 5 on her labs. Potassium was elevated at 8.0 and then decreased to 1.8 after the hyperglycemia was corrected. Serum creatinine was 4.0 on initial admission. It decreased down to 3.6 and now it is back up to 4.5. Urine output has been at about 60-40 mL an hour. Blood pressure is on the lower side. Patient is maintained on a very small dose of Levophed at about 3 mcg. She has received about 4-5 L of fluid boluses. PAST MEDICAL HISTORY: Type 1 diabetes. PAST SURGICAL HISTORY: None. SOCIAL HISTORY: Negative for smoking, drug abuse or alcohol abuse. The patient is a high school computer science teacher. MEDICATIONS: Insulin. ALLERGIES: None. REVIEW OF SYSTEMS: As per HPI. Other systems negative other systems negative. PHYSICAL EXAMINATION: On examination, patient is currently intubated. She is sedated. Blood pressure was 94/59 this morning. Heart rate 112 per minute. Patient is afebrile. Examination of the heart S1, S2. Examination of the lungs, bilateral breath sounds are heard. Abdomen is soft. Examination of lower extremities shows no evidence of edema. SHANK INSPECTOR exam cannot be performed as patient is sedated. LAB: Shows sodium 145, potassium 3.7, chloride 117, CO2 is 21, BUN 63, serum creatinine 4.03, phosphorus currently less than 0.5. ASSESSMENT: 1. Acute kidney injury prerenal associated with hypovolemia as well as a component of ATN currently nonoliguric. The patient has a Leos catheter. I will check an ultrasound of the kidneys. UA shows evidence of protein, ketones and blood. No nephrotoxic agents on board. I will continue with the IV fluids for now. 2. Diabetic ketoacidosis, anion gap, currently closed. Maintained on insulin drip. Blood sugars now at about 200. 3. Hypophosphatemia associated with treatment of DKA, currently being replaced. 4. Severe hyperkalemia on admission associated with acute kidney injury, severe metabolic acidosis and DKA followed by hypokalemia with correction of the severe hyperglycemia and acidosis, status post replacement. PLAN: Continue with the IV fluids for now. Continue to avoid nephrotoxic agents. Replace electrolytes and repeat labs in a.m. Thank you for this consultation. We will continue to follow the patient with you during her hospitalization. MMTARAL / IJN: [id number] /
[2020-04-27 15:18] LABS: Glucose,Whole Blood 230 mg/dL (75-99)
[2020-04-27] MEDS: NOREPINEPHRINE 32 MG in SODIUM CHLORIDE 0.9% 218 ML IV SCH (15:25)
[2020-04-27 16:02] LABS: Glucose,Whole Blood 232 mg/dL (75-99)
[2020-04-27] MEDS ORDERED: DEXTROSE 5%-0.45% NACL 1,000 ML IV SCH (17:00)
[2020-04-27 17:01] LABS: Glucose,Whole Blood 266 mg/dL (75-99)
[2020-04-27 21:20] LABS: Glucose,Whole Blood 249 mg/dL (75-99)
[2020-04-27] MEDS: INSULIN ASPART (NovoLOG) 100 UNIT/ML VIAL SQ SCH (21:37)
[2020-04-27] MEDS: INSULIN DETEMIR (LEVEMIR) 100 UNIT/ML SYR SQ SCH (21:38)
[2020-04-27] MEDS: SODIUM CHLORIDE 0.9% 150 ML with VASOPRESSIN 60 UNIT IV SCH ×2 (23:48)
[2020-04-28 00:04] LABS: ABG HCO3 7 mmol/L (21-25); ABG PH 7.07 (7.35-7.45)
[2020-04-28 00:05] LABS: ABG HCO3 7 mmol/L (21-25); ABG PH 7.13 (7.35-7.45)
[2020-04-28 00:15] LABS: Glucose,Whole Blood 157 mg/dL (75-99)
[2020-04-28] MEDS: HEPARIN SODIUM,PORCINE 5,000 UNIT/ML 1 ML VIAL SQ SCH ×3 (00:28→16:47)
[2020-04-28] MEDS: INSULIN ASPART (NovoLOG) 100 UNIT/ML VIAL SQ SCH ×5 (00:28→20:38)
[2020-04-28 04:49] LABS: HCT 28.5 % (34.0-46.0); HGB 9.7 gm/dL (11.4-16.0); MCH 32.7 pg (25.0-35.0); MCHC 34.2 g/dL (31.0-37.0); MCV 95.8 fL (80.0-100.0); Mean Platelet Volume 7.5; RBC 2.97 m/uL (3.80-5.40); RDW 14.3 % (11.5-15.5)
[2020-04-28 05:07] LABS: Albumin 2.1 g/dL (3.5-5.0); Calcium 7.2 mg/dL (8.4-10.2); Phosphorus 3.2 mg/dL (2.5-4.5); Potassium 3.5 mmol/L (3.5-5.1); Total Bilirubin 0.7 mg/dL (0.2-1.3); Total Protein 4.1 g/dL (6.3-8.2)
[2020-04-28 05:24] LABS: Platelet Count 77 k/uL (150-450)
[2020-04-28 06:01] LABS: Glucose,Whole Blood 75 mg/dL (75-99)
[2020-04-28] MEDS: SODIUM CHLORIDE 0.45% 1,000 ML IV SCH ×2 (06:39→10:59)
[2020-04-28] MEDS: POTASSIUM CHLORIDE 20 MEQ in WATER FOR INJECTION 1 100ML.BAG IVPB SCH ×2 (06:40→09:10)
--- NOTE | 2020-04-28 07:07 | XR ---
EXAMINATION TYPE: XR chest 1V portable DATE OF EXAM: 04/28/2020 COMPARISON: 04/27/2020 HISTORY: Shortness of breath, follow-up TECHNIQUE: Single frontal view of the chest is obtained. FINDINGS: Endotracheal and NG tubes have been removed. Basilar infiltrates and/or atelectasis persists as well as small left-sided pleural effusion. The cardiac silhouette size is within normal limits. The osseous structures are intact. IMPRESSION: 1. Basilar infiltrates and/or atelectasis persists as well as small left-sided pleural effusion.
--- NOTE | 2020-04-28 08:06 | P.PN ---
Subjective Progress Note Date: 04/28/20 Acute diabetic ketoacidosis 40-year-old female patient with past history of diabetes mellitus type 1, who was brought into the hospital on 04/25/2020 per EMS for evaluation of altered mental status. The patient is a schoolteacher, she lives by herself, and there were 2 snow days related to the weather. Today patient did not show up for work and the patient's family had not heard from the patient for 2 days and that when they went over to check on her patient was only responsive to painful stimuli a nd was just moaning and groaning. She was bradycardic when EMS arrived with heart rate in the 40s. There was no evidence of any traumatic injury. Blood sugar was checked at the scene and was too high for a read on the glucometer and patient was very cold. Blood pressure was within normal limits. Patient was extremely hypothermic, she had possibly been in bed for the last 48 hours. Blood gas was obtained in the emergency department showing pH of less than 6.8, pCO2 of 20, pO2 of greater than 400, and bicarbonate concentration of 2 this was done on FiO2 100%. BMP revealed potassium of 8, bicarbonate concentration of less than 5, glucose was 1234, BUN was 51 and creatinine was 4.05. Urinalysis showed 4+ glucose, 2+ proteins, 2+ ketones, serum acetone was positive. White blood cell count was 15.7, hemoglobin is 14.8, hematocrit was 51.2, with MCV of 117, and marked macrocytosis. Coronavirus PCR was negative. Patient was given a total of 4 L in fluid boluses, was started on insulin infusion per DKA protocol, she received 1 amp of sodium bicarbonate and was started on D5 half-normal saline with 3 A of bicarb at 200 ML per hour. Patient was intubated and placed on mechanical ventilator. Current vent settings are assist control mode of ventilation with a rate of 20, tidal lines 450, FiO2 of 40% and PEEP of 5. Brain CT showed no acute intracranial process. Chest x-ray showed mild interstitial prominence, no consolidation or pleural effusion, ET tube was noted to be 1.9 cm from the hany. NG-tube was inserted and was noted to be above the GE junction with the recommendation to advanced at 6 cm further into the stomach. Patient was hypothermic with a temp of 84.6 on arrival, hypotensive, she is receiving fluid boluses. She continues on bicarbonate drip at 200 ML per hour, however her blood pressure is still low in the 80s over 40s, patient is not on any sedation, she is unresponsive. Her temperature has improved, last rectal temp is 98.6F. Recheck blood work was obtained showing potassium of 4.3, sodium is 137, bicarbonate concentration is less than 5, BUN is 50, creatinine is 3.32, GFR is 17, glucose is 903, blood gas showed pO2 of 212, pCO2 of 17, and pH of 6.88. Patient was reevaluated today on 04/26/2020, patient remains in the ICU, intubated and mechanically ventilated. Her ventilator settings are assist control rate of 24 FiO2 is 30% tidal volume is 450 and PEEP is 5. ABG showed a pO2 of 119 pCO2 of 29 pH of 7.32. Bicarb is 14, anion gap is 12. Blood sugar remains in the 500 range. Patient remains on propofol at 15 mcg/kg/m, discont inued her bicarb drip, remains on insulin at 14.5 units per hour. Patient is now hemodynamically stable, required norepinephrine and vasopressin yesterday and she received significant amount of fluids almost over 7 L. Her low blood pressure seems to be mostly related to propofol, when the patient was taken off propofol this morning, her blood pressure was as high as 160s systolic. As soon as she was placed back on propofol, there was clearly evidence of drop in her blood pressure. Off propofol, patient was restless and agitated, thrashing in bed, would not follow any instructions, and clearly based on her overall clinical status, she is not ready to be weaned, hence I recommended just goes back on propofol. CBC is relatively normal. Potassium remains low at 2.7, patient is receiving significant amount of potassium for replacement. Renal profile is abnormal with a BUN of 59 and creatinine of 3.62 chest x-ray is relatively unremarkable. Patient was reevaluated today on 04/27/2020, remains in the ICU, intubated and mechanically ventilated. Patient remains on assist control mode of mechanical ventilation, rate is 24, tidal volume is 450 FiO2 is 30%, and PEEP is 5. ABG showed a pO2 of 125 pCO2 of 29 pH of 7.46. Patient remains on propofol at 40 mcg/kg/m, remains on norepinephrine at 0.08 mcg/kg/m, requirement seems to be higher and the propofol dose is increased. She is on insulin at 5.6 units per hour, her sugars are running in the range of 160, and I recommended stopping her 0.9 normal saline, and went to D5 45 at 150 ML per hour, and we will get the insulin dose down and likely discontinue and eventually transitioned to subcu insulin and Lantus insulin. Her renal functioning however is quite concerning, she continues to have elevated creatinine and I requested a nephrology consultation on this patient. I am not certain whether this is an acute kidney injury or chronic kidney injury or both, patient may have had chronic kidney injury related to her ongoing diabetes./Diabetic nephropathy. Today I have held her propofol, and I plan to give the patient a trial of pressure support and CPAP when she is awake, and if she does well I will likely extubate the patient. I did recommend more fluids to be given hopefully will get rid of norepinephrine today. Urine output is good however she required Lasix yesterday because it dropped down significantly in spite of significant amount of fluids given since admission probably over 8 L however the urine output improved with Lasix. And she continues to have almost 50 mL per hour. CBC today is relatively normal. Electrolytes are normal, bicarb is up to 20, and her anion gap is 8/corrected. BUN is 65 creatinine 4.51. Admission creatinine was 4.05. Cortisol level was 47. Phosphorus is being corrected as per protocol, was as low as 0.5 yesterday, it is 1.3 today 04/28/2020 I'm seeing the patient for a follow-up in the intensive care unit. Note that this patient is 40, diabetic and she came with DKA and severe anion gap metabolic acidosis, she was hypotensive and she required intubation mechani mey ventilation during the process and the patient was treated regarding her DKA. She also had an acute kidney injury. She also had to be intubated and placed on mechanical ventilator in the sputum was showing strep group B covered with IV Zosyn. This morning, the patient is extubated and she is on room air oxygen. She is awake and alert and following commands and answering questions. Extubation was done yesterday morning after the patient was given a spontaneous breathing trial which she was able to tolerate and subsequently she was extubated. She is currently on IV fluids with half-normal saline at the rate of 125 mL an hour. She is currently off the insulin drip. The most recent blood sugar from this morning is running at 72. Blood work, the patient's has a serum bicarb of 18 and his sodium is at 146 with a chloride of 121 and anion gap is at 7. The morning blood sugar from the lab was 69. Nevertheless, the patient developed an acute kidney injury in the creatinine is up to 5.4 this morning. Her urine output is in order of is an hour. Her dynamically, she still requir ing pressors and the patient is currently on levo fed running at 0.05 mcg/kg per minute. This is needed to maintain a mean arterial pressure above 65. Chest x- ray from today shows lower lobe pulmonary infiltrates worse on the left and there is interval removal of the orotracheal tube. Neurologically, she was encephalopathic and had neurologic function is improved considerably and she is awake and alert and following commands and answering questions. She was seen by nephrology yesterday and adjusted acute kidney injury and the patient was seen by Dr. Spaulding and based on assessment acute kidney injury is probably related to hypovolemia an ATN induced at a time of her DKA. Objective - Vital Signs Vital signs: Vital Signs Temp 98.1 F 04/28/20 04:00 Pulse 86 04/28/20 07:00 Resp 22 04/28/20 07:00 BP 92/67 04/28/20 07:00 Pulse Ox 99 04/28/20 07:00 Intake & Output 04/27/20 04/28/20 04/28/20 18:59 06:59 18:59 Intake Total 2804.042 1602.428 125 Output Total 732 525 10 Balance 2072.042 1077.428 115 Weight 81 kg Intake: IV 2675 1500 125 D5-0.45% NaCl with KCl 900 20Meq/l 1,000 ml @ 150 mls/hr IV .Q6H40M [facility] Rx# :[id number] Piperacillin-Tazobactam 3 100 .375 gm In Sodium Chloride 0.9% 100 ml @ 25 mls/hr IVPB Q8HR [facility] Rx# :[id number] Potassium Phosphate 10 100 mmol In Sodium Chloride 0 .9% 250 ml @ 125 mls/hr IV Q2H [facility] Rx#:[id number] Sodium Chloride 0.45% 1, 125 1500 125 000 ml @ 125 mls/hr IV . Q8H [facility] Rx#:[id number] Sodium Chloride 0.45% 1, 450 000 ml @ 150 mls/hr IV . Q6H40M [facility] Rx#:[id number] Sodium Chloride 0.9% 1, 1000 000 ml @ 999 mls/hr IV . Q1H1M [facility] Rx#:[id number] Intake, IV Titration 129.042 102.428 Amount Insulin Regular 100 unit 46.517 In Sodium Chloride 0.9% 100 ml @ 0.1 UNITS/KG/HR 6.484 mls/hr IV .[id number] [facility] Rx#:[id number] Norepinephrine 32 mg In 16.592 2.428 Sodium Chloride 0.9% 218 ml @ 0.05 MCG/KG/MIN 1. 505 mls/hr IV .Q24H [facility] Rx#:[id number] Sodium Phosph/0.9 NaCl 10 100 mmol In Saline 100 100ml .bag @ 100 mls/hr IVPB ONCE [facility] Rx#:[id number] propofoL 500 mg In Empty 65.933 Bag 1 bag @ Titrate IV . Q0M [facility] Rx#:[id number] Output: Urine 732 525 10 Other: Voiding Method Indwelling Catheter Indwelling Catheter # Bowel Movements 1 2 ABP, PAP, CO, CI - Last Documented Arterial Blood Pressure 98/80 - Exam GENERAL EXAM: Revealed a 40-year-old female extubated on the med oxygen, awake and alert and communicating. HEAD: Normocephalic/atraumatic. HEENT: PERRLA, EOMI, anicteric, moist mucous membranes, endotracheal tube and orogastric tube are intact CHEST: No chest wall deformity. Symmetrical expansion. LUNGS: Equal air entry with no crackles, wheeze, rhonchi or dullness. CVS: Regular rate and rhythm, normal S1 and S2, no gallops, no murmurs, no rubs ABDOMEN: Soft, nontender. No hepatosplenomegaly, normal bowel sounds, no guarding or rigidity. EXTREMITIES: No clubbing, no edema, no cyanosis, 2+ pulses and upper and lower extremities. MUSCULOSKELETAL: Moving all extremities, could not actually assess otherwise SPINE: No scoliosis or deformity SKIN: No rashes CENTRAL NERVOUS SYSTEM: Neurologically, the patient is awake and alert and the patient does not have any focal neurological deficit. Cranial nerves are essentially intact. - Labs CBC & Chem 7: 04/28/20 04:30 04/28/20 04:30 Labs: Abnormal Lab Results - Last 24 Hours (Table) 04/25/20 04/25/20 04/27/20 Range/Units 19:52 22:19 09:02 WBC (3.8-10.6) k/uL RBC (3.80-5.40) m/uL Hgb (11.4-16.0) gm/dL Hct (34.0-46.0) % Plt Count (150-450) k/uL ABG pH 7.07 L* 7.13 L* (7.35-7.45) ABG pCO2 (35-45) mmHg ABG pO2 (83-108) mmHg ABG HCO3 7 L* 7 L* (21-25) mmol/L ABG O2 Saturation (94-97) % Sodium (137-145) mmol/L Chloride (98-107) mmol/L Carbon Dioxide (22-30) mmol/L BUN (7-17) mg/dL Creatinine (0.52-1.04) mg/dL Glucose (74-99) mg/dL POC Glucose (mg/dL) 194 H (75-99) mg/dL Calcium (8.4-10.2) mg/dL AST (14-36) U/L ALT (4-34) U/L Total Protein (6.3-8.2) g/dL Albumin (3.5-5.0) g/dL 04/27/20 04/27/20 04/27/20 Range/Units 09:57 11:00 11:08 WBC (3.8-10.6) k/uL RBC (3.80-5.40) m/uL Hgb (11.4-16.0) gm/dL Hct (34.0-46.0) % Plt Count (150-450) k/uL ABG pH (7.35-7.45) ABG pCO2 30 L (35-45) mmHg ABG pO2 130 H (83-108) mmHg ABG HCO3 19 L (21-25) mmol/L ABG O2 Saturation 100.0 H (94-97) % Sodium (137-145) mmol/L Chloride (98-107) mmol/L Carbon Dioxide (22-30) mmol/L BUN (7-17) mg/dL Creatinine (0.52-1.04) mg/dL Glucose (74-99) mg/dL POC Glucose (mg/dL) 193 H 223 H (75-99) mg/dL Calcium (8.4-10.2) mg/dL AST (14-36) U/L ALT (4-34) U/L Total Protein (6.3-8.2) g/dL Albumin (3.5-5.0) g/dL 04/27/20 04/27/20 04/27/20 Range/Units 12:09 12:53 14:12 WBC (3.8-10.6) k/uL RBC (3.80-5.40) m/uL Hgb (11.4-16.0) gm/dL Hct (34.0-46.0) % Plt Count (150-450) k/uL ABG pH (7.35-7.45) ABG pCO2 (35-45) mmHg ABG pO2 (83-108) mmHg ABG HCO3 (21-25) mmol/L ABG O2 Saturation (94-97) % Sodium (137-145) mmol/L Chloride (98-107) mmol/L Carbon Dioxide (22-30) mmol/L BUN (7-17) mg/dL Creatinine (0.52-1.04) mg/dL Glucose (74-99) mg/dL POC Glucose (mg/dL) 254 H 226 H 213 H (75-99) mg/dL Calcium (8.4-10.2) mg/dL AST (14-36) U/L ALT (4-34) U/L Total Protein (6.3-8.2) g/dL Albumin (3.5-5.0) g/dL 04/27/20 04/27/20 04/27/20 Range/Units 15:18 16:00 17:00 WBC (3.8-10.6) k/uL RBC (3.80-5.40) m/uL Hgb (11.4-16.0) gm/dL Hct (34.0-46.0) % Plt Count (150-450) k/uL ABG pH (7.35-7.45) ABG pCO2 (35-45) mmHg ABG pO2 (83-108) mmHg ABG HCO3 (21-25) mmol/L ABG O2 Saturation (94-97) % Sodium (137-145) mmol/L Chloride (98-107) mmol/L Carbon Dioxide (22-30) mmol/L BUN (7-17) mg/dL Creatinine (0.52-1.04) mg/dL Glucose (74-99) mg/dL POC Glucose (mg/dL) 230 H 232 H 266 H (75-99) mg/dL Calcium (8.4-10.2) mg/dL AST (14-36) U/L ALT (4-34) U/L Total Protein (6.3-8.2) g/dL Albumin (3.5-5.0) g/dL 04/27/20 04/28/20 04/28/20 Range/Units 21:19 00:13 04:30 WBC (3.8-10.6) k/uL RBC (3.80-5.40) m/uL Hgb (11.4-16.0) gm/dL Hct (34.0-46.0) % Plt Count (150-450) k/uL ABG pH (7.35-7.45) ABG pCO2 (35-45) mmHg ABG pO2 (83-108) mmHg ABG HCO3 (21-25) mmol/L ABG O2 Saturation (94-97) % Sodium 146 H (137-145) mmol/L Chloride 121 H (98-107) mmol/L Carbon Dioxide 18 L (22-30) mmol/L BUN 67 H (7-17) mg/dL Creatinine 5.40 H (0.52-1.04) mg/dL Glucose 69 L (74-99) mg/dL POC Glucose (mg/dL) 249 H 157 H (75-99) mg/dL Calcium 7.2 L (8.4-10.2) mg/dL AST 185 H (14-36) U/L ALT 57 H (4-34) U/L Total Protein 4.1 L (6.3-8.2) g/dL Albumin 2.1 L (3.5-5.0) g/dL 04/28/20 Range/Units 04:30 WBC 11.0 H (3.8-10.6) k/uL RBC 2.97 L (3.80-5.40) m/uL Hgb 9.7 L (11.4-16.0) gm/dL Hct 28.5 L (34.0-46.0) % Plt Count 77 L (150-450) k/uL ABG pH (7.35-7.45) ABG pCO2 (35-45) mmHg ABG pO2 (83-108) mmHg ABG HCO3 (21-25) mmol/L ABG O2 Saturation (94-97) % Sodium (137-145) mmol/L Chloride (98-107) mmol/L Carbon Dioxide (22-30) mmol/L BUN (7-17) mg/dL Creatinine (0.52-1.04) mg/dL Glucose (74-99) mg/dL POC Glucose (mg/dL) (75-99) mg/dL Calcium (8.4-10.2) mg/dL AST (14-36) U/L ALT (4-34) U/L Total Protein (6.3-8.2) g/dL Albumin (3.5-5.0) g/dL Microbiology - Last 24 Hours (Table) 04/25/20 14:44 Blood Culture - Preliminary Blood No Growth after 48 hours 04/26/20 07:49 Gram Stain - Preliminary Sputum Sputum Culture - Preliminary Strep agalactiae - (group b) Assessment and Plan Plan: 1 Acute hypoxic respiratory failure secondary to severe anion gap metabolic acidosis secondary to acute DKA. Strep grp b was also cultured in the sputum and the patient is currently on Zosyn. The patient has bilateral lower lobe pulmonary infiltrates consistent with pneumonia. A bounding 2 Acute diabetic ketoacidosis, recovered and the patient's anion gap is down to 7 3 Severe anion gap metabolic acidosis secondary to above, recovered she 4 Acute metabolic encephalopathy is suspected secondary to profound hyperglycemia and severe acidosis, recovered 5 Multiple electrolytes abnormality including hyperkalemia, pseudohyponatremia, recovered 6 Acute kidney injury, likely secondary to hypotension , acute tubular necrosis, and hypovolemia secondary to profound hyperglycemia. 7 Type 1 diabetes, poor compliance with significantly elevated hemoglobin A1c. Recommendation: Continue IV fluids with half-normal saline at the rate of 125 mL an hour Wean off pressors and discontinue the norepinephrine if possible The patient is currently on room air oxygen yet the chest x-ray showed lower lobe pulmonary infiltrates consistent with possible aspiration. There is strep group B in the sputum and the patient is currently on IV Zosyn which is adequate for now Continue the Levemir insulin at 30 units and monitor blood sugar and continue with sliding scale coverage and monitor the electrolytes and acid base status and the gap Continue GI and DVT prophylaxis. Nephrology consultation regarding her acute kidney injury was requestedThe patient has ATN in the creatinine is on the rise up to 5.4 the patient is having diminished urine output. Check an ultrasound the kidneys to rule out hydr onephrosis. Presentation is most consistent with ATN. We'll continue to follow. Patient is critically ill. Continue to monitor in the ICU
--- NOTE | 2020-04-28 08:34 | P.PN ---
Subjective 40-year-old female with known diabetic found unresponsive. Patient talked to the family members on Wednesday night after that the patient never responded to texts, family found her unresponsive in her own bed. Patient is found to be severely hypothermic bradycardic severely acidotic with pH of 6.5 with highly elevated blood sugar of 1200. And has to be intubated for protection of airway. Patient is presently on set up respiratory rate of 24 because of severe metabolic acidosis patient was started on IV insulin presently in normal saline and was to half-normal 7 because of hyperchloremia patient is also on bicarbonate drip along with norepinephrine and around the 13 g. Patient has a severe electrolyte abnormalities patient also had respiratory acidosis. Patient has highly elevated potassium patient received the calcium gluconate presently receiving bicarbonate and is also on IV insulin and this potassium potassium has come down now. 05/24/2020 Patient remains intubated had had a metabolic acidosis significantly improved patient pCO2 is a 29 pH is 7.39. Patient is on basic when setting send a set up respiratory of 24 at this time. We will wean off her sedation. Patient is presently unresponsive because of sedation. Patient's nystagmus improved. Patient is presently on around the 6-7 mcg/h of norepinephrine. Patient is also on very low dose of vasopressin the stool will be weaned off. Patient the DKA resolved but blood sugars remained high because of the D5 which she is receiving for bicarbonate drip which will be discontinued at this time patient will be continued on half-normal saline with insulin was a blood sugars come down to 300 also check to long-acting insulin dose will be decided depending on if patient will receive nutrition are not today. Patient will also be on sliding scale and additionally on pre-meal insulin as well. Patient's phosphorus is extremely low which will be replaced. Anion gap improved to 12 but the patient's bicarbonate is only 14 this is because of hyperchloremia. 04/27/2020 Patient is extubated today patient is waking up, still barely responsive to verbal still alive. Patient chest x-ray showing bilateral infiltrates and leukocytosis because patient was started on empiric empiric Zosyn for possible aspiration pneumonia. Patient's anion gap resolved yesterday patient still on D5 half-normal saline with insulin which will be transitioned to subcutaneous insulin whenever she needs then patient will be started on pre-meal insulin until then patient will be on every 6 hourly sliding scale. Patient will be continued and transitioned to half-normal saline. Will not require any potassium supplementation at this time patient creatinine still high nephrology was consulted. Creatinine is actually worse to 4.5 and patient's personal for being discontinued at this time. Patient does have urine output 04/29/2020 Patient is a more awake today and able to answer questions although patient does have some hoarseness of voice probably because of intubation. Patient looks tired week and appropriately answering questions. Patient kidney function continued to get worse has urine output around 30 mL per hour. Patient probably has acute tubular necrosis secondary to severe hypotension patient remains on Zosyn for possible aspiration pneumonia with bilateral lower lobes infiltrate patient is off insulin drip and patient is on 30 units of insulin patient was nothing by mouth until today morning pass a swallow evaluation patient will be continued on same 30 units and patient will be switched to 5 units 3 times a day with meals of short-acting insulin along with sliding scale insulin. Patient morning blood sugar is around 70 but patient was nothing by mouth. Physical therapy occupational therapy will evaluate the patient patient can use to be on norepinephrine at 0.05 mics per Gram per minute patient blood pressure is in 90s systolic with mean arterial pressure of around 65 Review of systems: Unable to obtain due to her clinical condition All inpatient medications were reviewed and appropriate changes in these medications as dictated in the interval history and assessment and plan. Objective - Vital Signs Vital signs: Vital Signs Temp 98.2 F 04/28/20 08:00 Pulse 93 04/28/20 08:00 Resp 26 H 04/28/20 08:00 BP 102/72 04/28/20 08:00 Pulse Ox 99 04/28/20 08:00 Intake & Output 04/27/20 04/28/20 04/28/20 18:59 06:59 18:59 Intake Total 2804.042 1602.428 254.791 Output Total 732 525 45 Balance 2072.042 1077.428 209.791 Weight 81 kg Intake: IV 2675 1500 250 D5-0.45% NaCl with KCl 900 20Meq/l 1,000 ml @ 150 mls/hr IV .Q6H40M [facility] Rx# :[id number] Piperacillin-Tazobactam 3 100 .375 gm In Sodium Chloride 0.9% 100 ml @ 25 mls/hr IVPB Q8HR [facility] Rx# :[id number] Potassium Phosphate 10 100 mmol In Sodium Chloride 0 .9% 250 ml @ 125 mls/hr IV Q2H [facility] Rx#:[id number] Sodium Chloride 0.45% 1, 125 1500 250 000 ml @ 125 mls/hr IV . Q8H [facility] Rx#:[id number] Sodium Chloride 0.45% 1, 450 000 ml @ 150 mls/hr IV . Q6H40M [facility] Rx#:[id number] Sodium Chloride 0.9% 1, 1000 000 ml @ 999 mls/hr IV . Q1H1M [facility] Rx#:[id number] Intake, IV Titration 129.042 102.428 4.791 Amount Insulin Regular 100 unit 46.517 In Sodium Chloride 0.9% 100 ml @ 0.1 UNITS/KG/HR 6.484 mls/hr IV .[id number] [facility] Rx#:[id number] Norepinephrine 32 mg In 16.592 2.428 4.791 Sodium Chloride 0.9% 218 ml @ 0.05 MCG/KG/MIN 1. 505 mls/hr IV .Q24H [facility] Rx#:[id number] Sodium Phosph/0.9 NaCl 10 100 mmol In Saline 100 100ml .bag @ 100 mls/hr IVPB [facility]CE [facility] Rx#:[id number] propofoL 500 mg In Empty 65.933 Bag 1 bag @ Titrate IV . Q0M [facility] Rx#:[id number] Output: Urine 732 525 45 Other: Voiding Method Indwelling Catheter Indwelling Catheter # Bowel Movements 1 2 ABP, PAP, CO, CI - Last Documented Arterial Blood Pressure 98/80 - Exam PHYSICAL EXAMINATION: GENERAL: Patient is extubated at alert appears to be orientated but quite weak to answer questions HEENT: Pupils are round and equally reacting to light. EOMI. No scleral icterus. No conjunctival pallor. Normocephalic, atraumatic. No pharyngeal erythema. No thyromegaly. CARDIOVASCULAR: S1 and S2 present. No murmurs, rubs, or gallops. PULMONARY: Chest is clear to auscultation, no wheezing or crackles. ABDOMEN: Soft, nontender, nondistended, normoactive bowel sounds. No palpable organomegaly. MUSCULOSKELETAL: No joint swelling or deformity. EXTREMITIES: No cyanosis, clubbing, or pedal edema. NEUROLOGICAL: Realized weakness doesn't appear to have any focal deficits SKIN: Patient does have some bruises and deep discoloration of the skin because of laying on the bed at home. - Labs CBC & Chem 7: 04/28/20 04:30 04/28/20 04:30 Labs: Abnormal Lab Results - Last 24 Hours (Table) 04/25/20 04/25/20 04/27/20 Range/Units 19:52 22:19 09:02 WBC (3.8-10.6) k/uL RBC (3.80-5.40) m/uL Hgb (11.4-16.0) gm/dL Hct (34.0-46.0) % Plt Count (150-450) k/uL ABG pH 7.07 L* 7.13 L* (7.35-7.45) ABG pCO2 (35-45) mmHg ABG pO2 (83-108) mmHg ABG HCO3 7 L* 7 L* (21-25) mmol/L ABG O2 Saturation (94-97) % Sodium (137-145) mmol/L Chloride (98-107) mmol/L Carbon Dioxide (22-30) mmol/L BUN (7-17) mg/dL Creatinine (0.52-1.04) mg/dL Glucose (74-99) mg/dL POC Glucose (mg/dL) 194 H (75-99) mg/dL Calcium (8.4-10.2) mg/dL AST (14-36) U/L ALT (4-34) U/L Total Protein (6.3-8.2) g/dL Albumin (3.5-5.0) g/dL 04/27/20 04/27/20 04/27/20 Range/Units 09:57 11:00 11:08 WBC (3.8-10.6) k/uL RBC (3.80-5.40) m/uL Hgb (11.4-16.0) gm/dL Hct (34.0-46.0) % Plt Count (150-450) k/uL ABG pH (7.35-7.45) ABG pCO2 30 L (35-45) mmHg ABG pO2 130 H (83-108) mmHg ABG HCO3 19 L (21-25) mmol/L ABG O2 Saturation 100.0 H (94-97) % Sodium (137-145) mmol/L Chloride (98-107) mmol/L Carbon Dioxide (22-30) mmol/L BUN (7-17) mg/dL Creatinine (0.52-1.04) mg/dL Glucose (74-99) mg/dL POC Glucose (mg/dL) 193 H 223 H (75-99) mg/dL Calcium (8.4-10.2) mg/dL AST (14-36) U/L ALT (4-34) U/L Total Protein (6.3-8.2) g/dL Albumin (3.5-5.0) g/dL 04/27/20 04/27/20 04/27/20 Range/Units 12:09 12:53 14:12 WBC (3.8-10.6) k/uL RBC (3.80-5.40) m/uL Hgb (11.4-16.0) gm/dL Hct (34.0-46.0) % Plt Count (150-450) k/uL ABG pH (7.35-7.45) ABG pCO2 (35-45) mmHg ABG pO2 (83-108) mmHg ABG HCO3 (21-25) mmol/L ABG O2 Saturation (94-97) % Sodium (137-145) mmol/L Chloride (98-107) mmol/L Carbon Dioxide (22-30) mmol/L BUN (7-17) mg/dL Creatinine (0.52-1.04) mg/dL Glucose (74-99) mg/dL POC Glucose (mg/dL) 254 H 226 H 213 H (75-99) mg/dL Calcium (8.4-10.2) mg/dL AST (14-36) U/L ALT (4-34) U/L Total Protein (6.3-8.2) g/dL Albumin (3.5-5.0) g/dL 04/27/20 04/27/20 04/27/20 Range/Units 15:18 16:00 17:00 WBC (3.8-10.6) k/uL RBC (3.80-5.40) m/uL Hgb (11.4-16.0) gm/dL Hct (34.0-46.0) % Plt Count (150-450) k/uL ABG pH (7.35-7.45) ABG pCO2 (35-45) mmHg ABG pO2 (83-108) mmHg ABG HCO3 (21-25) mmol/L ABG O2 Saturation (94-97) % Sodium (137-145) mmol/L Chloride (98-107) mmol/L Carbon Dioxide (22-30) mmol/L BUN (7-17) mg/dL Creatinine (0.52-1.04) mg/dL Glucose (74-99) mg/dL POC Glucose (mg/dL) 230 H 232 H 266 H (75-99) mg/dL Calcium (8.4-10.2) mg/dL AST (14-36) U/L ALT (4-34) U/L Total Protein (6.3-8.2) g/dL Albumin (3.5-5.0) g/dL 04/27/20 04/28/20 04/28/20 Range/Units 21:19 00:13 04:30 WBC (3.8-10.6) k/uL RBC (3.80-5.40) m/uL Hgb (11.4-16.0) gm/dL Hct (34.0-46.0) % Plt Count (150-450) k/uL ABG pH (7.35-7.45) ABG pCO2 (35-45) mmHg ABG pO2 (83-108) mmHg ABG HCO3 (21-25) mmol/L ABG O2 Saturation (94-97) % Sodium 146 H (137-145) mmol/L Chloride 121 H (98-107) mmol/L Carbon Dioxide 18 L (22-30) mmol/L BUN 67 H (7-17) mg/dL Creatinine 5.40 H (0.52-1.04) mg/dL Glucose 69 L (74-99) mg/dL POC Glucose (mg/dL) 249 H 157 H (75-99) mg/dL Calcium 7.2 L (8.4-10.2) mg/dL AST 185 H (14-36) U/L ALT 57 H (4-34) U/L Total Protein 4.1 L (6.3-8.2) g/dL Albumin 2.1 L (3.5-5.0) g/dL 04/28/20 Range/Units 04:30 WBC 11.0 H (3.8-10.6) k/uL RBC 2.97 L (3.80-5.40) m/uL Hgb 9.7 L (11.4-16.0) gm/dL Hct 28.5 L (34.0-46.0) % Plt Count 77 L (150-450) k/uL ABG pH (7.35-7.45) ABG pCO2 (35-45) mmHg ABG pO2 (83-108) mmHg ABG HCO3 (21-25) mmol/L ABG O2 Saturation (94-97) % Sodium (137-145) mmol/L Chloride (98-107) mmol/L Carbon Dioxide (22-30) mmol/L BUN (7-17) mg/dL Creatinine (0.52-1.04) mg/dL Glucose (74-99) mg/dL POC Glucose (mg/dL) (75-99) mg/dL Calcium (8.4-10.2) mg/dL AST (14-36) U/L ALT (4-34) U/L Total Protein (6.3-8.2) g/dL Albumin (3.5-5.0) g/dL Microbiology - Last 24 Hours (Table) 04/25/20 14:44 Blood Culture - Preliminary Blood No Growth after 48 hours 04/26/20 07:49 Gram Stain - Preliminary Sputum Sputum Culture - Preliminary Strep agalactiae - (group b) Assessment and Plan Plan: -Profound metabolic acidosis: Resolved now Secondary to diabetic ketoacidosis and lactic acidosis and hyperkalemia. Patient is extubated on 04/27/2020. . Patient remains acidotic because of uremia renal failure and hyperchloremia 1 acute respiratory failure secondary to hypovolemic shock, diabetic ketoac idosis presently extubated -Altered mental status, unresponsive state: Patient has respiratory failure secondary to this patient is presently intubated CT did not show any significant abnormality and this is secondary to profound metabolic acidosis and metabolic encephalopathy. -Possible aspiration pneumonia for which the patient was started on Zosyn -Acute kidney injury : Most probably secondary to acute tubular necrosis from severe hypotension along with prerenal azotemia -Hypovolemic shock: Secondary to severe intravascular volume depletion, patient is still on some pressors but very low dose of norepinephrine -Type 1 diabetes mellitus: Insulin management as mentioned above. Patient's he moglobin A1c is highly elevated probably poor compliance -Leukocytosis mostly reactive in nature -Pseudohyponatremia improved with IV fluids, -Hypothermia: Secondary to hypovolemic shock, improved -DVT prophylaxis with the heparin. GI prophylaxis with Protonix
[2020-04-28] MEDS: PANTOPRAZOLE 40 MG/10 ML VIAL IVP SCH (09:10)
[2020-04-28] MEDS: PIPERACILLIN-TAZOBACTAM 3.375 GM in SODIUM CHLORIDE 0.9% 100 ML IVPB SCH ×2 (09:10→21:19)
--- NOTE | 2020-04-28 09:37 | US ---
EXAMINATION TYPE: US kidneys/renal and bladder DATE OF EXAM: 04/28/2020 COMPARISON: NONE CLINICAL HISTORY: massimo. MASSIMO EXAM MEASUREMENTS: Right Kidney: 12.1 x 5.6 x 6.3 cm Left Kidney: 12.5 x 6.2 x 5.4 cm Right Kidney: No hydronephrosis or masses seen Left Kidney: No hydronephrosis or masses seen Bladder: Anechoic Bilateral Jets seen: No There is no evidence for hydronephrosis at this point in time. No nephrolithiasis is seen. No nessa s are identified. The urinary bladder is anechoic. IMPRESSION: Distinct abnormality appreciated at this time.
[2020-04-28 10:31] LABS: Amorphous Sediment,Urine Rare /hpf; Appearance,Urine Cloudy (Clear); Bacteria,Urine Rare /hpf; Bilirubin,Urine Negative (Negative); Blood,Urine Large (Negative); Color,Urine Light Yellow; Glucose,Urine (UA) Negative (Negative); Hyaline Casts,Urine 1 /lpf (0-2); Ketones,Urine Negative (Negative); Leukocyte Esterase,Urine Large (Negative); Mucus,Urine Rare /hpf; Nitrite,Urine Negative (Negative); Protein,Urine 1+ (Negative); RBC,Urine 61 /hpf (0-5); Specific Gravity,Urine 1.011 (1.001-1.035); Squamous Epithelial Cell,Urine 3 /hpf (0-4); Urobilinogen,Urine <2.0 mg/dL (<2.0); WBC,Urine 18 /hpf (0-5)
[2020-04-28 12:26] LABS: Glucose,Whole Blood 173 mg/dL (75-99)
[2020-04-28] MEDS: MIDODRINE 5 MG TAB PO SCH ×2 (12:59→16:48)
--- NOTE | 2020-04-28 13:24 | PN ---
PROGRESS NOTE Patient is seen for followup for acute kidney injury. She was admitted to the hospital with severe acidosis, shock, hypotension, and hyperkalemia along with diabetic ketoacidosis. The patient's serum creatinine has continued to increase. It did initially go down from 4.0 to 3.6 and then has been subsequently increasing. Patient was hypotensive. Currently she is off Levophed and maintained on IV fluids. Urine output is at about 30-50 mL an hour. Blood pressure is staying on the lower side with systolic around 90-80 mmHg. Patient was extubated yesterday. She has passed the swallowing evaluation. No nephrotoxic agents on board currently. She is off the insulin drip. PHYSICAL EXAMINATION: On examination today, blood pressure was 94/70, heart rate 96 per minute, patient is afebrile. Examination of the heart S1, S2. Examination of the lungs, bilateral breath sounds are heard. Abdomen is soft, nontender. Examination of lower extremities shows no evidence of edema. [employer] exam grossly intact. The patient is lethargic but moving all four extremities. LAB: Show sodium 146, potassium 3.5, chloride 121, CO2 is 18, BUN 67, creatinine 5.4, hemoglobin 9.7 g/dL, calcium 7.2, phosphorus 3.2. UA shows 1+ protein, large blood is noted, WBCs 18. ASSESSMENT: 1. Acute kidney injury, acute tubular necrosis, currently nonoliguric, although urine output is slightly on the lower side. Renal function has been worsening. Patient's blood pressure remains on the lower side. She is maintained on IV fluids. No nephrotoxic agents on board. No evidence of obstructive uropathy. She does have proteinuria which could be secondary to underlying chronic kidney disease from dye diabetic kidney disease. I will continue with the IV fluids for now and repeat labs in a.m. Hopefully patient will not need renal replacement therapy. 2. Mild hypernatremia, currently maintained on half-normal saline, which we can continue for now. 3. Metabolic acidosis, initially diabetic ketoacidosis, which has resolved. However, currently patient has non gap metabolic acidosis secondary to renal failure. I will add 1 amp of bicarb in the IV fluids. 4. Severe diabetic ketoacidosis, now resolved. 5. Hypophosphatemia associated with correction of diabetic ketoacidosis, status post replacement. 6. Hyperkalemia on admission followed by hypokalemia with correction of diabetic ketoacidosis. PLAN: Repeat UA. Add oral midodrine. Add 1 amp of bicarb to half-normal saline. Repeat labs later on this evening. Continue to assess on a daily basis regarding need for renal replacement therapy and no nephrotoxic agents. MMODL / IJN: [id number] /
[2020-04-28] MEDS: NOREPINEPHRINE 32 MG in SODIUM CHLORIDE 0.9% 218 ML IV SCH (16:00)
[2020-04-28 16:42] LABS: Glucose,Whole Blood 165 mg/dL (75-99)
[2020-04-28] MEDS: SODIUM CHLORIDE 0.45% 1,000 ML with SODIUM BICARB (1 MEQ/ML) 50 ML IV SCH ×2 (16:48)
[2020-04-28 20:14] LABS: Calcium 7.3 mg/dL (8.4-10.2); Potassium 4.2 mmol/L (3.5-5.1)
[2020-04-28 20:25] LABS: Glucose,Whole Blood 141 mg/dL (75-99)
[2020-04-28] MEDS: INSULIN DETEMIR (LEVEMIR) 100 UNIT/ML SYR SQ SCH (20:38)
[2020-04-29] MEDS: HEPARIN SODIUM,PORCINE 5,000 UNIT/ML 1 ML VIAL SQ SCH ×4 (00:37→23:08)
[2020-04-29] MEDS: SODIUM CHLORIDE 0.45% 1,000 ML with SODIUM BICARB (1 MEQ/ML) 50 ML IV SCH ×6 (02:36→21:36)
[2020-04-29 04:20] LABS: HCT 28.2 % (34.0-46.0); MCH 34.3 pg (25.0-35.0); MCHC 35.3 g/dL (31.0-37.0); MCV 97.2 fL (80.0-100.0); Mean Platelet Volume 9.6; WBC 6.3 k/uL (3.8-10.6)
[2020-04-29 04:27] LABS: Platelet Count 62 k/uL (150-450)
[2020-04-29 05:04] LABS: Calcium 7.2 mg/dL (8.4-10.2); Potassium 3.9 mmol/L (3.5-5.1); Total Bilirubin 0.7 mg/dL (0.2-1.3); Total Protein 4.1 g/dL (6.3-8.2)
[2020-04-29 07:01] LABS: Glucose,Whole Blood 136 mg/dL (75-99)
[2020-04-29] MEDS: MIDODRINE 5 MG TAB PO SCH ×3 (07:03→17:42)
[2020-04-29] MEDS: INSULIN ASPART (NovoLOG) 100 UNIT/ML VIAL SQ SCH ×4 (07:03→21:35)
[2020-04-29] MEDS: PIPERACILLIN-TAZOBACTAM 3.375 GM in SODIUM CHLORIDE 0.9% 100 ML IVPB SCH ×2 (09:49→21:35)
[2020-04-29] MEDS: PANTOPRAZOLE 40 MG/10 ML VIAL IVP SCH (09:49)
[2020-04-29] MEDS: SODIUM BICARBONATE TAB 650 MG TAB PO SCH ×2 (09:49→21:35)
--- NOTE | 2020-04-29 10:51 | P.PN ---
Subjective Progress Note Date: 04/29/20 Principal diagnosis: Pneumonia, diabetic ketoacidosis 40-year-old female patient with past history of diabetes mellitus type 1, who was brought into the hospital on 04/25/2020 per EMS for evaluation of altered mental status. The patient is a schoolteacher, she lives by herself, and there were 2 snow days related to the weather. Today patient did not show up for work and the patient's family had not heard from the patient for 2 days and that when they went over to check on her patient was only responsive to painful stimuli and was just moaning and groaning. She was bradycardic when EMS arrived with heart rate in the 40s. There was no evidence of any traumatic injury. Blood sugar was checked at the scene and was too high for a read on the glucometer and patient was very cold. Blood pressure was within normal limits. Patient was extremely hypothermic, she had possibly been in bed for the last 48 hours. Blood gas was obtained in the emergency department showing pH of less than 6.8, pCO2 of 20, pO2 of greater than 400, and bicarbonate concentration of 2 this was done on FiO2 100%. BMP revealed potassium of 8, bicarbonate concentration of less than 5, glucose was 1234, BUN was 51 and creatinine was 4.05. Urinalysis showed 4+ glucose, 2+ proteins, 2+ ketones, serum acetone was positive. White blood cell count was 15.7, hemoglobin is 14.8, hematocrit was 51.2, with MCV of 117, and marked macrocytosis. Coronavirus PCR was negative. Patient was given a total of 4 L in fluid boluses, was started on insulin infusion per DKA protocol, she received 1 amp of sodium bicarbonate and was started on D5 half-normal saline with 3 A of bicarb at 200 ML per hour. Patient was intubated and placed on mechanical ventilator. Current vent settings are assist control mode of ventilation with a rate of 20, tidal lines 450, FiO2 of 40% and PEEP of 5. Brain CT showed no acute intracranial process. Chest x-ray showed mild interstitial prominence, no consolidation or pleural effusion, ET tube was noted to be 1.9 cm from the hany. NG-tube was inserted and was noted to be above the GE junction with the recommendation to advanced at 6 cm further into the stoma ch. Patient was hypothermic with a temp of 84.6 on arrival, hypotensive, she is receiving fluid boluses. She continues on bicarbonate drip at 200 ML per hour, however her blood pressure is still low in the 80s over 40s, patient is not on any sedation, she is unresponsive. Her temperature has improved, last rectal temp is 98.6F. Recheck blood work was obtained showing potassium of 4.3, sodium is 137, bicarbonate concentration is less than 5, BUN is 50, creatinine is 3.32, GFR is 17, glucose is 903, blood gas showed pO2 of 212, pCO2 of 17, and pH of 6.88. Patient was reevaluated today on 04/26/2020, patient remains in the ICU, intubated and mechanically ventilated. Her ventilator settings are assist control rate of 24 FiO2 is 30% tidal volume is 450 and PEEP is 5. ABG showed a pO2 of 119 pCO2 of 29 pH of 7.32. Bicarb is 14, anion gap is 12. Blood sugar remains in the 500 range. Patient remains on propofol at 15 mcg/kg/m, discontinued her bicarb drip, remains on insulin at 14.5 units per hour. Patient is now hemodynamically stable, required norepinephrine and vasopressin yesterday and she received significant amount of fluids almost over 7 L. Her low blood pressure seems to be mostly related to propofol, when the patient was taken off propofol this morning, her blood pressure was as high as 160s systolic. As soon as she was placed back on propofol, there was clearly evidence of drop in her blood pressure. Off propofol, patient was restless and agitated, thrashing in bed, would not follow any instructions, and clearly based on her overall clinical status, she is not ready to be weaned, hence I recommended just goes back on propofol. CBC is relatively normal. Potassium remains low at 2.7, patient is receiving significant amount of potassium for replacement. Renal profile is abnormal with a BUN of 59 and creatinine of 3.62 chest x-ray is relatively unremarkable. Patient was reevaluated today on 04/27/2020, remains in the ICU, intubated and mechanically ventilated. Patient remains on assist control mode of mechanical ventilation, rate is 24, tidal volume is 450 FiO2 is 30%, and PEEP is 5. ABG showed a pO2 of 125 pCO2 of 29 pH of 7.46. Patient remains on propofol at 40 mcg/kg/m, remains on norepinephrine at 0.08 mcg/kg/m, requirement seems to be higher and the propofol dose is increased. She is on insulin at 5.6 units per hour, her sugars are running in the range of 160, and I recommended stopping her 0.9 normal saline, and went to D5 45 at 150 ML per hour, and we will get the insulin dose down and likely discontinue and eventually transitioned to subcu insulin and Lantus insulin. Her renal functioning however is quite concerning, she continues to have elevated creatinine and I requested a nephrology consultation on this patient. I am not certain whether this is an acute kidney injury or chronic kidney injury or both, patient may have had chronic kidney injury related to her ongoing diabetes./Diabetic nephropathy. Today I have held her propofol, and I plan to give the patient a trial of pressure support and CPAP when she is awake, and if she does well I will likely extubate the patient. I did recommend more fluids to be given hopefully will get rid of norepinephrine today. Urine output is good however she required Lasix yesterday because it dropped down significantly in spite of significant amount of fluids given since admission probably over 8 L however the urine output improved with Lasix. And she continues to have almost 50 mL per hour. CBC today is relatively normal. Electrolytes are normal, bicarb is up to 20, and her anion gap is 8/corrected. BUN is 65 creatinine 4.51. Admission creatinine was 4.05. Cortisol level was 47. Phosphorus is being corrected as per protocol, was as low as 0.5 yesterday, it is 1.3 today 04/28/2020 I'm seeing the patient for a follow-up in the intensive care unit. Note that this patient is 40, diabetic and she came with DKA and severe anion gap metabolic acidosis, she was hypotensive and she required intubation mechanical ventilation during the process and the patient was treated regarding her DKA. She also had an acute kidney injury. She also had to be intubated and placed on mechanical ventilator in the sputum was showing strep group B covered with IV Zosyn. This morning, the patient is extubated and she is on room air oxygen. She is awake and alert and following commands and answering questions. Extubation was done yesterday morning after the patient was given a spontaneous breathing trial which she was able to tolerate and subsequently she was ext ubated. She is currently on IV fluids with half-normal saline at the rate of 125 mL an hour. She is currently off the insulin drip. The most recent blood sugar from this morning is running at 72. Blood work, the patient's has a serum bicarb of 18 and his sodium is at 146 with a chloride of 121 and anion gap is at 7. The morning blood sugar from the lab was 69. Nevertheless, the patient developed an acute kidney injury in the creatinine is up to 5.4 this morning. Her urine output is in order of is an hour. Her dynamically, she still requiring pressors and the patient is currently on levo fed running at 0.05 mcg/kg per minute. This is needed to maintain a mean arterial pressure above 65. Chest x-ray from today shows lower lobe pulmonary infiltrates worse on the left and there is interval removal of the orotracheal tube. Neurologically, she was encephalopathic and had neurologic function is improved considerably and she is awake and alert and following commands and answering questions. She was seen by nephrology yesterday and adjusted acute kidney injury and the patient was seen by Dr. Spaulding and based on assessment acute kidney injury is probably related to hypovolemia an ATN induced at a time of her DKA. On 04/29/2020 patient seen in follow-up in the intensive care unit, she opens eyes to voice, her voice is hoarse, she is very weak, no signs of any respiratory distress, she does have a harsh reductive cough, she is bringing up some clear to white phlegm. She is oriented 2, she knew she was in the hospital at [facility], she thought it was May, but knew the correct year. She is answering questions appropriate, she is a bit sleepy. She states her PCP is Dr. García, and apparently she does see a diabetic specialist Dr. Ferguson for her diabetes care. She states that she had been compliant with her insulin. The patient required intubation and mechanical ventilator support for several days for community acquired pneumonia, and her sputum cultures positive for group B strep, blood cultures have been negative, patient is on Zosyn. She is also on half-normal saline with 1 amp of bicarbonate at a rate of 125 ML, no vasopressors, she has been running a low-grade fever, with a temp of 99.3F. She is tolerating oral diet, no nausea vomiting. Today's lab work has been reviewed, showing white blood cell, 6.3, hemoglobin is 10, renal profile continues to worsen, BUN is 76, creatinine is 5.89, and nephrology is following. Abdominal ultrasound of the kidneys and bladder revealed no evidence of hydronephrosis, no nephrolithiasis no masses. Last chest x-ray was yesterday showing basilar infiltrates and small left-sided pleural effusion. She is producing urine in the order of 40-75 ML per hour. She is mildly generally swollen. Objective - Vital Signs Vital signs: Vital Signs Temp 99.1 F 04/29/20 08:00 Pulse 86 04/29/20 10:00 Resp 18 04/29/20 10:00 BP 92/73 04/29/20 10:00 Pulse Ox 94 L 04/29/20 10:00 Intake & Output 04/28/20 04/29/20 04/29/20 18:59 06:59 18:59 Intake Total 6658.987 5890 350 Output Total 350 655 84 Balance 9018.171 8659 266 Weight 85.9 kg Intake: IV 1525 1625 350 Piperacillin-Tazobactam 3 100 100 .375 gm In Sodium Chloride 0.9% 100 ml @ 25 mls/hr IVPB Q8HR JANELL Rx# :[id number] Potassium Chloride 20 meq 50 In Water For Injection 1 100ml.bag @ 50 mls/hr IVPB ONCE STA Rx#: [id number] Sodium Chloride 0.45% 1, 1375 1625 250 000 ml @ 125 mls/hr IV . Q8H JANELL Rx#:[id number] Intake, IV Titration 5.463 Amount Norepinephrine 32 mg In 5.463 Sodium Chloride 0.9% 218 ml @ 0.05 MCG/KG/MIN 1. 505 mls/hr IV .Q24H JANELL Rx#:[id number] Oral 100 Output: Urine 350 655 84 Other: Voiding Method Indwelling Catheter Indwelling Catheter Indwelling Catheter # Bowel Movements 2 ABP, PAP, CO, CI - Last Documented Arterial Blood Pressure 98/80 - Exam GENERAL EXAM: Sleepy, but easily arousable to voice, oriented 2 currently on, room air with a pulse ox of 97% comfortable in no apparent distress. Patient has abrasions in the corners of her mouth from ET tube tie HEAD: Normocephalic/atraumatic. EYES: Normal reaction of pupils, equal size. Conjunctiva pink, sclera white. NOSE: Clear with pink turbinates. THROAT: No erythema or exudates. NECK: No masses, no JVD, no thyroid enlargement, no adenopathy. CHEST: No chest wall deformity. Symmetrical expansion. LUNGS: Equal air entry with basilar crackles, diminished breath sounds at the bases CVS: Regular rate and rhythm, normal S1 and S2, no gallops, no murmurs, no rubs ABDOMEN: Soft, nontender. No hepatosplenomegaly, normal bowel sounds, no guarding or rigidity. EXTREMITIES: No clubbing, no edema, no cyanosis, 2+ pulses and upper and lower extremities. MUSCULOSKELETAL: Muscle strength and tone normal. SPINE: No scoliosis or deformity SKIN: No rashes CENTRAL NERVOUS SYSTEM: Alert and oriented -3. No focal deficits, tone is normal in all 4 extremities. PSYCHIATRIC: Alert and oriented -3. Appropriate affect. Intact judgment and insight. - Labs CBC & Chem 7: 04/29/20 03:59 04/29/20 03:59 Labs: Abnormal Lab Results - Last 24 Hours (Table) 04/28/20 04/28/20 04/28/20 Range/Units 12:25 16:41 18:55 RBC (3.80-5.40) m/uL Hgb (11.4-16.0) gm/dL Hct (34.0-46.0) % Plt Count (150-450) k/uL Chloride 118 H (98-107) mmol/L Carbon Dioxide 16 L (22-30) mmol/L BUN 74 H (7-17) mg/dL Creatinine 5.63 H (0.52-1.04) mg/dL Glucose 145 H (74-99) mg/dL POC Glucose (mg/dL) 173 H 165 H (75-99) mg/dL Calcium 7.3 L (8.4-10.2) mg/dL AST (14-36) U/L ALT (4-34) U/L Total Protein (6.3-8.2) g/dL Albumin (3.5-5.0) g/dL 04/28/20 04/29/20 04/29/20 Range/Units 20:24 03:59 03:59 RBC 2.90 L (3.80-5.40) m/uL Hgb 10.0 L (11.4-16.0) gm/dL Hct 28.2 L (34.0-46.0) % Plt Count 62 L (150-450) k/uL Chloride 117 H (98-107) mmol/L Carbon Dioxide 17 L (22-30) mmol/L BUN 76 H (7-17) mg/dL Creatinine 5.89 H (0.52-1.04) mg/dL Glucose 168 H (74-99) mg/dL POC Glucose (mg/dL) 141 H (75-99) mg/dL Calcium 7.2 L (8.4-10.2) mg/dL AST 101 H (14-36) U/L ALT 54 H (4-34) U/L Total Protein 4.1 L (6.3-8.2) g/dL Albumin 2.0 L (3.5-5.0) g/dL 04/29/20 Range/Units 06:59 RBC (3.80-5.40) m/uL Hgb (11.4-16.0) gm/dL Hct (34.0-46.0) % Plt Count (150-450) k/uL Chloride (98-107) mmol/L Carbon Dioxide (22-30) mmol/L BUN (7-17) mg/dL Creatinine (0.52-1.04) mg/dL Glucose (74-99) mg/dL POC Glucose (mg/dL) 136 H (75-99) mg/dL Calcium (8.4-10.2) mg/dL AST (14-36) U/L ALT (4-34) U/L Total Protein (6.3-8.2) g/dL Albumin (3.5-5.0) g/dL Microbiology - Last 24 Hours (Table) 04/25/20 14:44 Blood Culture - Preliminary Blood No Growth after 72 hours 04/26/20 07:49 Gram Stain - Final Sputum Sputum Culture - Final Strep agalactiae - (group b) Assessment and Plan Plan: Assessment: #1. Acute diabetic ketoacidosis, recovered #2. Bilateral lower lobe pulmonary infiltrates related to community acquired pneumonia, sputum culture positive for group B strep, patient is currently on Zosyn #3. Profound metabolic acidosis related to the above, improved #4. Altered mental status, related to metabolic encephalopathy, brain CT showed no acute abnormalities, improved, patient has been awake, and following commands and responding appropriately #5. Multiple electrolyte abnormalities, including hyperkalemia, hyponatremia, acidemia related to acute DKA, improved #6. Acute kidney injury, secondary to hypotension, acute tubular necrosis and hypovolemia #7. Hypotension, hypovolemic shock related to severe dehydration, rule out possibility of septic shock #8. Diabetes mellitus type 1, takes Toujeo insulin on a regular basis #9. 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 Lifetime nonsmoker Plan: Maintain aspiration precautions, encourage deep breathing and coughing, hemodynamically patient is stable, vital signs have been stable, renal function remains significantly impaired, nephrology is following, patient is producing urine, continues on bicarbonate infusion, currently on room air, we'll continue with Zosyn for antibiotic coverage, ultrasound of the kidneys has been reviewed. Continue before meals and at bedtime blood sugar monitoring, and Humalog insu avelina for blood sugar control. Continue GI and DVT prophylaxis. Continue to monitor in the intensive care unit I performed a history & physical examination of the patient and discussed their management with my nurse practitioner, Bettina Heath. I reviewed the nurse practitioner's note and agree with the documented findings and plan of care. Lung sounds are positive for diminished breath sounds. The findings and the impression was discussed with the patient. I attest to the documentation by the nurse practitioner. Time with Patient: Less than 30
[2020-04-29 11:41] LABS: Glucose,Whole Blood 145 mg/dL (75-99)
--- NOTE | 2020-04-29 12:45 | P.PN ---
Subjective 40-year-old female with known diabetic found unresponsive. Patient talked to the family members on Wednesday night after that the patient never responded to texts, family found her unresponsive in her own bed. Patient is found to be severely hypothermic bradycardic severely acidotic with pH of 6.5 with highly elevated blood sugar of 1200. And has to be intubated for protection of airway. Patient is presently on set up respiratory rate of 24 because of severe metabolic acidosis patient was started on IV insulin presently in normal saline and was to half-normal 7 because of hyperchloremia patient is also on bicarbonate drip along with norepinephrine and around the 13 g. Patient has a severe electrolyte abnormalities patient also had respiratory acidosis. Patient has highly elevated potassium patient received the calcium gluconate presently receiving bicarbonate and is also on IV insulin and this potassium potassium has come down now. 05/24/2020 Patient remains intubated had had a metabolic acidosis significantly improved patient pCO2 is a 29 pH is 7.39. Patient is on basic when setting send a set up respiratory of 24 at this time. We will wean off her sedation. Patient is presently unresponsive because of sedation. Patient's nystagmus improved. Patient is presently on around the 6-7 mcg/h of norepinephrine. Patient is also on very low dose of vasopressin the stool will be weaned off. Patient the DKA resolved but blood sugars remained high because of the D5 which she is receiving for bicarbonate drip which will be discontinued at this time patient will be continued on half-normal saline with insulin was a blood sugars come down to 300 also check to long-acting insulin dose will be decided depending on if patient will receive nutrition are not today. Patient will also be on sliding scale and additionally on pre-meal insulin as well. Patient's phosphorus is extremely low which will be replaced. Anion gap improved to 12 but the patient's bicarbonate is only 14 this is because of hyperchloremia. 04/27/2020 Patient is extubated today patient is waking up, still barely responsive to verbal still alive. Patient chest x-ray showing bilateral infiltrates and leukocytosis because patient was started on empiric empiric Zosyn for possible aspiration pneumonia. Patient's anion gap resolved yesterday patient still on D5 half-normal saline with insulin which will be transitioned to subcutaneous insulin whenever she needs then patient will be started on pre-meal insulin until then patient will be on every 6 hourly sliding scale. Patient will be continued and transitioned to half-normal saline. Will not require any potassium supplementation at this time patient creatinine still high nephrology was consulted. Creatinine is actually worse to 4.5 and patient's personal for being discontinued at this time. Patient does have urine output 04/28/2020 Patient is a more awake today and able to answer questions although patient does have some hoarseness of voice probably because of intubation. Patient looks tired week and appropriately answering questions. Patient kidney function continued to get worse has urine output around 30 mL per hour. Patient probably has acute tubular necrosis secondary to severe hypotension patient remains on Zosyn for possible aspiration pneumonia with bilateral lower lobes infiltrate patient is off insulin drip and patient is on 30 units of insulin patient was nothing by mouth until today morning pass a swallow evaluation patient will be continued on same 30 units and patient will be switched to 5 units 3 times a day with meals of short-acting insulin along with sliding scale insulin. Patient morning blood sugar is around 70 but patient was nothing by mouth. Physical therapy occupational therapy will evaluate the patient patient can use to be on norepinephrine at 0.05 mics per Gram per minute patient blood pressure is in 90s systolic with mean arterial pressure of around 65 04/29/2020 Patient is sitting in the chair still quite a bit week patient is on 30 units of long-acting insulin along with sliding scale with each meal blood sugars are well controlled creatinine continued to get worse. On dialysis for now patient is having urine output. Constitutional: Denied any fatigue denied any fever. Cardio vascular: denied any chest pain, palpitations Gastrointestinal denied any nausea vomiting Pulmonary: Denied any shortness of breath cough Neurologic denied any new focal deficits All inpatient medications were reviewed and appropriate changes in these medications as dictated in the interval history and assessment and plan. Objective - Vital Signs Vital signs: Vital Signs Temp 99.1 F 04/29/20 12:00 Pulse 84 04/29/20 12:00 Resp 27 H 04/29/20 12:00 BP 101/80 04/29/20 12:00 Pulse Ox 97 04/29/20 12:00 Intake & Output 04/28/20 04/29/20 04/29/20 18:59 06:59 18:59 Intake Total 8363.516 4804 350 Output Total 350 655 84 Balance 7164.606 4140 266 Weight 85.9 kg 85.9 kg Intake: IV 1525 1625 350 Piperacillin-Tazobactam 3 100 100 .375 gm In Sodium Chloride 0.9% 100 ml @ 25 mls/hr IVPB Q8HR [facility] Rx# :[id number] Potassium Chloride 20 meq 50 In Water For Injection 1 100ml.bag @ 50 mls/hr IVPB ONCE STA Rx#: [id number] Sodium Chloride 0.45% 1, 1375 1625 250 000 ml @ 125 mls/hr IV . Q8H [facility] Rx#:[id number] Intake, IV Titration 5.463 Amount Norepinephrine 32 mg In 5.463 Sodium Chloride 0.9% 218 ml @ 0.05 MCG/KG/MIN 1. 505 mls/hr IV .Q24H [facility] Rx#:[id number] Oral 100 Output: Urine 350 655 84 Other: Voiding Method Indwelling Catheter Indwelling Catheter Indwelling Catheter # Bowel Movements 2 ABP, PAP, CO, CI - Last Documented Arterial Blood Pressure 98/80 - Exam PHYSICAL EXAMINATION: GENERAL: Patient is extubated at alert, orientatedX3 but quite weak to answer questions HEENT: Pupils are round and equally reacting to light. EOMI. No scleral icterus. No conjunctival pallor. Normocephalic, atraumatic. No pharyngeal erythema. No thyromegaly. CARDIOVASCULAR: S1 and S2 present. No murmurs, rubs, or gallops. PULMONARY: Chest is clear to auscultation, no wheezing or crackles. ABDOMEN: Soft, nontender, nondistended, normoactive bowel sounds. No palpable organomegaly. MUSCULOSKELETAL: No joint swelling or deformity. EXTREMITIES: No cyanosis, clubbing, or pedal edema. NEUROLOGICAL: Realized weakness doesn't appear to have any focal deficits SKIN: Patient does have some bruises and deep discoloration of the skin because of laying on the bed at home. - Labs CBC & Chem 7: 04/29/20 03:59 04/29/20 03:59 Labs: Abnormal Lab Results - Last 24 Hours (Table) 04/28/20 04/28/20 04/28/20 Range/Units 16:41 18:55 20:24 RBC (3.80-5.40) m/uL Hgb (11.4-16.0) gm/dL Hct (34.0-46.0) % Plt Count (150-450) k/uL Chloride 118 H (98-107) mmol/L Carbon Dioxide 16 L (22-30) mmol/L BUN 74 H (7-17) mg/dL Creatinine 5.63 H (0.52-1.04) mg/dL Glucose 145 H (74-99) mg/dL POC Glucose (mg/dL) 165 H 141 H (75-99) mg/dL Calcium 7.3 L (8.4-10.2) mg/dL AST (14-36) U/L ALT (4-34) U/L Total Protein (6.3-8.2) g/dL Albumin (3.5-5.0) g/dL 04/29/20 04/29/20 04/29/20 Range/Units 03:59 03:59 06:59 RBC 2.90 L (3.80-5.40) m/uL Hgb 10.0 L (11.4-16.0) gm/dL Hct 28.2 L (34.0-46.0) % Plt Count 62 L (150-450) k/uL Chloride 117 H (98-107) mmol/L Carbon Dioxide 17 L (22-30) mmol/L BUN 76 H (7-17) mg/dL Creatinine 5.89 H (0.52-1.04) mg/dL Glucose 168 H (74-99) mg/dL POC Glucose (mg/dL) 136 H (75-99) mg/dL Calcium 7.2 L (8.4-10.2) mg/dL AST 101 H (14-36) U/L ALT 54 H (4-34) U/L Total Protein 4.1 L (6.3-8.2) g/dL Albumin 2.0 L (3.5-5.0) g/dL 04/29/20 Range/Units 11:39 RBC (3.80-5.40) m/uL Hgb (11.4-16.0) gm/dL Hct (34.0-46.0) % Plt Count (150-450) k/uL Chloride (98-107) mmol/L Carbon Dioxide (22-30) mmol/L BUN (7-17) mg/dL Creatinine (0.52-1.04) mg/dL Glucose (74-99) mg/dL POC Glucose (mg/dL) 145 H (75-99) mg/dL Calcium (8.4-10.2) mg/dL AST (14-36) U/L ALT (4-34) U/L Total Protein (6.3-8.2) g/dL Albumin (3.5-5.0) g/dL Microbiology - Last 24 Hours (Table) 04/25/20 14:44 Blood Culture - Preliminary Blood No Growth after 72 hours 04/26/20 07:49 Gram Stain - Final Sputum Sputum Culture - Final Strep agalactiae - (group b) Assessment and Plan Plan: -Profound metabolic acidosis: Resolved now Secondary to diabetic ketoacidosis and lactic acidosis and hyperkalemia. Patient is extubated on 04/27/2020. . Patient remains acidotic because of uremia renal failure and hyperchloremia 1 acute respiratory failure secondary to hypovolemic shock, diabetic ketoacidosis presently extubated -Altered mental status, unresponsive state: Patient has respiratory failure secondary to this patient is presently intubated CT did not show any significant abnormality and this is secondary to profound metabolic acidosis and metabolic encephalopathy. -Possible aspiration pneumonia for which the patient was started on Zosyn -Acute kidney injury : Most probably secondary to acute tubular necrosis from severe hypotension along with prerenal azotemia -Hypovolemic shock: Secondary to severe intravascular volume depletion, patient is still on some pressors but very low dose of norepinephrine -Type 1 diabetes mellitus: Insulin management as mentioned above. Patient's hemoglobin A1c is highly elevated probably poor compliance -Leukocytosis mostly reactive in nature -Pseudohyponatremia improved with IV fluids, -Hypothermia: Secondary to hypovolemic shock, improved -DVT prophylaxis with the heparin. GI prophylaxis with Protonix
--- NOTE | 2020-04-29 14:22 | PN ---
PROGRESS NOTE Patient is seen for followup for acute kidney injury. She was admitted with severe diabetic ketoacidosis, hypotension. The patient's renal function has continued to worsen. However, since yesterday, serum creatinine has only increased by 0.2 mg. Patient's urine output remains at about 30-40 mL an hour. She was extubated 2 days ago. This morning she is a bit more awake but remains kind of slow and spaced out. Oral intake is poor. No significant chest pains or shortness of breath. Potassium is not elevated. Patient is also maintained on IV bicarb for ongoing metabolic acidosis. PHYSICAL EXAMINATION: On examination today, patient is awake, comfortable. She is following commands and seems to comprehend although seems a bit slow. Blood pressure this morning 97/77, heart rate 84 per minute. She is afebrile. Examination of the heart S1, S2. Examination of the lungs, bilateral breath sounds are heard. Abdomen is soft, nontender. Examination of lower extremities shows trace edema bilaterally. HVAC TECHNICIAN exam shows patient is moving all 4 extremities. She comprehends. She appears to be weak, though. No asterixis noted at this time. LAB: Show sodium 143, potassium 3.9, chloride 117, CO2 17, BUN 76, serum creatinine 5.89, calcium 7.2, albumin 2.0, hemoglobin 10.0. ASSESSMENT: 1. Acute kidney injury, acute tubular necrosis associated with hypotension, hypovolemia with progressive worsening of renal function up till yesterday. Serum creatinine has only increased by 0.2 mg today. The patient continues to maintain urine output and there is no acute indication for dialysis. If her renal function is not improved by tomorrow or if there is worsening in her mentation or persistent nausea, I will proceed with dialysis tomorrow. 2. Metabolic acidosis currently maintained on oral sodium bicarb as well as 1 amp of IV bicarb with half-normal saline as we did not want to use D5W as the base given her recent hyperglycemia and diabetic ketoacidosis. 3. Acute hypoxic respiratory failure, currently extubated. 4. Severe diabetic ketoacidosis, now resolved. 5. Pneumonia. Sputum culture grew group B strep status post extubation, maintained on antibiotics. 6. Mental status changes secondary to metabolic encephalopathy, severe hyperglycemia and diabetic ketoacidosis. 7. Type 1 diabetes. PLAN: Repeat labs in a.m. Continue with the current composition of IV bicarb as well as oral sodium bicarb. Continue to encourage increased oral intake. We will plan for dialysis tomorrow if there is worsening in mentation or no improvement in renal function. MMODL / IJN: [id number] /
[2020-04-29] MEDS: NOREPINEPHRINE 32 MG in SODIUM CHLORIDE 0.9% 218 ML IV SCH (15:26)
[2020-04-29 21:31] LABS: Glucose,Whole Blood 278 mg/dL (75-99)
[2020-04-29] MEDS: INSULIN DETEMIR (LEVEMIR) 100 UNIT/ML SYR SQ SCH (21:35)
[2020-04-30] MEDS: SODIUM CHLORIDE 0.45% 1,000 ML with SODIUM BICARB (1 MEQ/ML) 50 ML IV SCH ×6 (03:52→17:32)
[2020-04-30 04:43] LABS: Albumin 2.3 g/dL (3.5-5.0); Calcium 7.5 mg/dL (8.4-10.2); Total Bilirubin 0.6 mg/dL (0.2-1.3); Total Protein 4.6 g/dL (6.3-8.2)
[2020-04-30 04:55] LABS: Basophils % (A) 0 %; Eosinophils % (A) 1 %; HCT 31.6 % (34.0-46.0); Lymphocytes # (A) 0.7 k/uL (1.0-4.8); Lymphocytes % (A) 20 %; MCH 34.2 pg (25.0-35.0); MCHC 34.9 g/dL (31.0-37.0); Mean Platelet Volume 8.3; Monocytes # (A) 0.5 k/uL (0-1.0); Monocytes % (A) 14 %; Neutrophils # (A) 2.3 k/uL (1.3-7.7); Neutrophils % (A) 61 %; RBC 3.23 m/uL (3.80-5.40); RDW 13.5 % (11.5-15.5); WBC 3.7 k/uL (3.8-10.6)
[2020-04-30 04:57] LABS: Platelet Count 83 k/uL (150-450)
[2020-04-30 06:47] LABS: Glucose,Whole Blood 127 mg/dL (75-99)
[2020-04-30] MEDS: MIDODRINE 5 MG TAB PO SCH ×3 (06:55→17:29)
[2020-04-30] MEDS: PANTOPRAZOLE 40 MG TABLET PO SCH (06:55)
[2020-04-30] MEDS: INSULIN ASPART (NovoLOG) 100 UNIT/ML VIAL SQ SCH ×4 (06:55→20:53)
[2020-04-30] MEDS: SODIUM BICARBONATE TAB 650 MG TAB PO SCH ×2 (08:59→20:54)
[2020-04-30] MEDS: PIPERACILLIN-TAZOBACTAM 3.375 GM in SODIUM CHLORIDE 0.9% 100 ML IVPB SCH ×2 (08:59→20:53)
[2020-04-30] MEDS: ENOXAPARIN 30 MG/0.3 ML SYRINGE SQ SCH (10:16)
--- NOTE | 2020-04-30 10:38 | P.PN ---
Subjective Progress Note Date: 04/30/20 Principal diagnosis: Pneumonia, diabetic ketoacidosis 40-year-old female patient with past history of diabetes mellitus type 1, who was brought into the hospital on 04/25/2020 per EMS for evaluation of altered mental status. The patient is a schoolteacher, she lives by herself, and there were 2 snow days related to the weather. Today patient did not show up for work and the patient's family had not heard from the patient for 2 days and that when they went over to check on her patient was only responsive to painful stimuli and was just moaning and groaning. She was bradycardic when EMS arrived with heart rate in the 40s. There was no evidence of any traumatic injury. Blood sugar was checked at the scene and was too high for a read on the glucometer and patient was very cold. Blood pressure was within normal limits. Patient was extremely hypothermic, she had possibly been in bed for the last 48 hours. Blood gas was obtained in the emergency department showing pH of less than 6.8, pCO2 of 20, pO2 of greater than 400, and bicarbonate concentration of 2 this was done on FiO2 100%. BMP revealed potassium of 8, bicarbonate concentration of less than 5, glucose was 1234, BUN was 51 and creatinine was 4.05. Urinalysis showed 4+ glucose, 2+ proteins, 2+ ketones, serum acetone was positive. White blood cell count was 15.7, hemoglobin is 14.8, hematocrit was 51.2, with MCV of 117, and marked macrocytosis. Coronavirus PCR was negative. Patient was given a total of 4 L in fluid boluses, was started on insulin infusion per DKA protocol, she received 1 amp of sodium bicarbonate and was started on D5 half-normal saline with 3 A of bicarb at 200 ML per hour. Patient was intubated and placed on mechanical ventilator. Current vent settings are assist control mode of ventilation with a rate of 20, tidal lines 450, FiO2 of 40% and PEEP of 5. Brain CT showed no acute intracranial process. Chest x-ray showed mild interstitial prominence, no consolidation or pleural effusion, ET tube was noted to be 1.9 cm from the hany. NG-tube was inserted and was noted to be above the GE junction with the recommendation to advanced at 6 cm further into the stoma ch. Patient was hypothermic with a temp of 84.6 on arrival, hypotensive, she is receiving fluid boluses. She continues on bicarbonate drip at 200 ML per hour, however her blood pressure is still low in the 80s over 40s, patient is not on any sedation, she is unresponsive. Her temperature has improved, last rectal temp is 98.6F. Recheck blood work was obtained showing potassium of 4.3, sodium is 137, bicarbonate concentration is less than 5, BUN is 50, creatinine is 3.32, GFR is 17, glucose is 903, blood gas showed pO2 of 212, pCO2 of 17, and pH of 6.88. Patient was reevaluated today on 04/26/2020, patient remains in the ICU, intubated and mechanically ventilated. Her ventilator settings are assist control rate of 24 FiO2 is 30% tidal volume is 450 and PEEP is 5. ABG showed a pO2 of 119 pCO2 of 29 pH of 7.32. Bicarb is 14, anion gap is 12. Blood sugar remains in the 500 range. Patient remains on propofol at 15 mcg/kg/m, discontinued her bicarb drip, remains on insulin at 14.5 units per hour. Patient is now hemodynamically stable, required norepinephrine and vasopressin yesterday and she received significant amount of fluids almost over 7 L. Her low blood pressure seems to be mostly related to propofol, when the patient was taken off propofol this morning, her blood pressure was as high as 160s systolic. As soon as she was placed back on propofol, there was clearly evidence of drop in her blood pressure. Off propofol, patient was restless and agitated, thrashing in bed, would not follow any instructions, and clearly based on her overall clinical status, she is not ready to be weaned, hence I recommended just goes back on propofol. CBC is relatively normal. Potassium remains low at 2.7, patient is receiving significant amount of potassium for replacement. Renal profile is abnormal with a BUN of 59 and creatinine of 3.62 chest x-ray is relatively unremarkable. Patient was reevaluated today on 04/27/2020, remains in the ICU, intubated and mechanically ventilated. Patient remains on assist control mode of mechanical ventilation, rate is 24, tidal volume is 450 FiO2 is 30%, and PEEP is 5. ABG showed a pO2 of 125 pCO2 of 29 pH of 7.46. Patient remains on propofol at 40 mcg/kg/m, remains on norepinephrine at 0.08 mcg/kg/m, requirement seems to be higher and the propofol dose is increased. She is on insulin at 5.6 units per hour, her sugars are running in the range of 160, and I recommended stopping her 0.9 normal saline, and went to D5 45 at 150 ML per hour, and we will get the insulin dose down and likely discontinue and eventually transitioned to subcu insulin and Lantus insulin. Her renal functioning however is quite concerning, she continues to have elevated creatinine and I requested a nephrology consultation on this patient. I am not certain whether this is an acute kidney injury or chronic kidney injury or both, patient may have had chronic kidney injury related to her ongoing diabetes./Diabetic nephropathy. Today I have held her propofol, and I plan to give the patient a trial of pressure support and CPAP when she is awake, and if she does well I will likely extubate the patient. I did recommend more fluids to be given hopefully will get rid of norepinephrine today. Urine output is good however she required Lasix yesterday because it dropped down significantly in spite of significant amount of fluids given since admission probably over 8 L however the urine output improved with Lasix. And she continues to have almost 50 mL per hour. CBC today is relatively normal. Electrolytes are normal, bicarb is up to 20, and her anion gap is 8/corrected. BUN is 65 creatinine 4.51. Admission creatinine was 4.05. Cortisol level was 47. Phosphorus is being corrected as per protocol, was as low as 0.5 yesterday, it is 1.3 today 04/28/2020 I'm seeing the patient for a follow-up in the intensive care unit. Note that this patient is 40, diabetic and she came with DKA and severe anion gap metabolic acidosis, she was hypotensive and she required intubation mechanical ventilation during the process and the patient was treated regarding her DKA. She also had an acute kidney injury. She also had to be intubated and placed on mechanical ventilator in the sputum was showing strep group B covered with IV Zosyn. This morning, the patient is extubated and she is on room air oxygen. She is awake and alert and following commands and answering questions. Extubation was done yesterday morning after the patient was given a spontaneous breathing trial which she was able to tolerate and subsequently she was ext ubated. She is currently on IV fluids with half-normal saline at the rate of 125 mL an hour. She is currently off the insulin drip. The most recent blood sugar from this morning is running at 72. Blood work, the patient's has a serum bicarb of 18 and his sodium is at 146 with a chloride of 121 and anion gap is at 7. The morning blood sugar from the lab was 69. Nevertheless, the patient developed an acute kidney injury in the creatinine is up to 5.4 this morning. Her urine output is in order of is an hour. Her dynamically, she still requiring pressors and the patient is currently on levo fed running at 0.05 mcg/kg per minute. This is needed to maintain a mean arterial pressure above 65. Chest x-ray from today shows lower lobe pulmonary infiltrates worse on the left and there is interval removal of the orotracheal tube. Neurologically, she was encephalopathic and had neurologic function is improved considerably and she is awake and alert and following commands and answering questions. She was seen by nephrology yesterday and adjusted acute kidney injury and the patient was seen by Dr. Spaulding and based on assessment acute kidney injury is probably related to hypovolemia an ATN induced at a time of her DKA. On 04/29/2020 patient seen in follow-up in the intensive care unit, she opens eyes to voice, her voice is hoarse, she is very weak, no signs of any respiratory distress, she does have a harsh reductive cough, she is bringing up some clear to white phlegm. She is oriented 2, she knew she was in the hospital at [facility], she thought it was May, but knew the correct year. She is answering questions appropriate, she is a bit sleepy. She states her PCP is Dr. García, and apparently she does see a diabetic specialist Dr. Ferguson for her diabetes care. She states that she had been compliant with her insulin. The patient required intubation and mechanical ventilator support for several days for community acquired pneumonia, and her sputum cultures positive for group B strep, blood cultures have been negative, patient is on Zosyn. She is also on half-normal saline with 1 amp of bicarbonate at a rate of 125 ML, no vasopressors, she has been running a low-grade fever, with a temp of 99.3F. She is tolerating oral diet, no nausea vomiting. Today's lab work has been reviewed, showing white blood cell, 6.3, hemoglobin is 10, renal profile continues to worsen, BUN is 76, creatinine is 5.89, and nephrology is following. Abdominal ultrasound of the kidneys and bladder revealed no evidence of hydronephrosis, no nephrolithiasis no masses. Last chest x-ray was yesterday showing basilar infiltrates and small left-sided pleural effusion. She is producing urine in the order of 40-75 ML per hour. She is mildly generally swollen. On 04/30/2020 patient seen in follow-up in the intensive care unit, she is breathing comfortably, she is on room air, pulse ox is 94-98%, she's been afebrile, hemodynamically she is stable, she is on 0.45 with 1 amp of bicarbonate at a rate of 125 ML per hour, her oral intake has remained limited because of her sore throat. She is on full liquid diet right now, and her appetite has been poor. Her affect is quite flat and at times patient refuses to participate with physical therapy. She seems depressed. She is answering questions appropriately, she denies any shortness of breath, she has a productive cough, phlegm is thin and clear at times quite. No hemoptysis, no new chest x-ray today. Indwelling catheter remains in place, patient has been producing 5225 ML in urine output in the last 24 hours, renal profile continues to be impaired, relatively stable compared to yesterday, BUN is 87, creatinine is 5.84, potassium is 4, CO2 remains low at 18, sodium is 140. appears to be generally swollen with the edema in her upper and lower extremities. White blood cell count today is 3.7, hemoglobin is 11, platelet count is 83, patient has been on subcutaneous heparin for DVT prophylaxis which we will discontinue and put the patient on Lovenox with renal adjustment. Small amount of liquid stool, C. diff was negative, patient continues on Zosyn, for evidence of group B strep pneumonia. Objective - Vital Signs Vital signs: Vital Signs Temp 97.1 F L 04/30/20 09:00 Pulse 89 04/30/20 10:00 Resp 24 04/30/20 10:00 BP 100/82 04/30/20 10:00 Pulse Ox 94 L 04/30/20 10:00 Intake & Output 04/29/20 04/30/20 04/30/20 18:59 06:59 18:59 Intake Total 1475 1840 500 Output Total 469 665 350 Balance 1006 1175 150 Weight 85.9 kg 83.2 kg Intake: IV 1100 375 Piperacillin-Tazobactam 3 100 .375 gm In Sodium Chloride 0.9% 100 ml @ 25 mls/hr IVPB Q8HR JANELL Rx# :[id number] Sodium Chloride 0.45% 1, 1000 375 000 ml @ 125 mls/hr IV . Q8H JANELL Rx#:[id number] Intake, IV Titration 375 1600 125 Amount Piperacillin-Tazobactam 3 100 .375 gm In Sodium Chloride 0.9% 100 ml @ 25 mls/hr IVPB Q12HR JANELL Rx #:[id number] Sodium Chloride 0.45% 1, 375 1500 125 000 ml @ 125 mls/hr IV . Q8H24M JANELL with Sodium Bicarb (1 Meq/ml) 50 ml Rx#:[id number] Oral 240 Output: Urine 469 665 350 Other: Voiding Method Indwelling Catheter Indwelling Catheter Indwelling Catheter ABP, PAP, CO, CI - Last Documented Arterial Blood Pressure 98/80 - Exam GENERAL EXAM: Awake, 40-year-old white female, oriented 3, has a flat affect, on, room air with a pulse ox of 97% comfortable in no apparent distress. Patient has abrasions in the corners of her mouth from ET tube tie HEAD: Normocephalic/atraumatic. EYES: Normal reaction of pupils, equal size. Conjunctiva pink, sclera white. NOSE: Clear with pink turbinates. THROAT: No erythema or exudates. NECK: No masses, no JVD, no thyroid enlargement, no adenopathy. CHEST: No chest wall deformity. Symmetrical expansion. LUNGS: Equal air entry with basilar crackles, diminished breath sounds at the bases CVS: Regular rate and rhythm, normal S1 and S2, no gallops, no murmurs, no rubs ABDOMEN: Soft, nontender. No hepatosplenomegaly, normal bowel sounds, no guarding or rigidity. EXTREMITIES: No clubbing, Gen. edema, and edema involving upper and lower extremities noted, no cyanosis, 2+ pulses and upper and lower extremities. MUSCULOSKELETAL: Muscle strength and tone normal. SPINE: No scoliosis or deformity SKIN: No rashes CENTRAL NERVOUS SYSTEM: Alert and oriented -3. No focal deficits, tone is normal in all 4 extremities. PSYCHIATRIC: Alert and oriented -3. Appropriate affect. Intact judgment and insight. - Labs CBC & Chem 7: 04/30/20 04:08 04/30/20 04:08 Labs: Abnormal Lab Results - Last 24 Hours (Table) 04/29/20 04/29/20 04/30/20 Range/Units 11:39 21:29 04:08 WBC 3.7 L (3.8-10.6) k/uL RBC 3.23 L (3.80-5.40) m/uL Hgb 11.0 L (11.4-16.0) gm/dL Hct 31.6 L (34.0-46.0) % Plt Count 83 L (150-450) k/uL Lymphocytes # 0.7 L (1.0-4.8) k/uL Chloride (98-107) mmol/L Carbon Dioxide (22-30) mmol/L BUN (7-17) mg/dL Creatinine (0.52-1.04) mg/dL Glucose (74-99) mg/dL POC Glucose (mg/dL) 145 H 278 H (75-99) mg/dL Calcium (8.4-10.2) mg/dL AST (14-36) U/L ALT (4-34) U/L Total Protein (6.3-8.2) g/dL Albumin (3.5-5.0) g/dL 04/30/20 04/30/20 Range/Units 04:08 06:45 WBC (3.8-10.6) k/uL RBC (3.80-5.40) m/uL Hgb (11.4-16.0) gm/dL Hct (34.0-46.0) % Plt Count (150-450) k/uL Lymphocytes # (1.0-4.8) k/uL Chloride 113 H (98-107) mmol/L Carbon Dioxide 18 L (22-30) mmol/L BUN 87 H (7-17) mg/dL Creatinine 5.84 H (0.52-1.04) mg/dL Glucose 159 H (74-99) mg/dL POC Glucose (mg/dL) 127 H (75-99) mg/dL Calcium 7.5 L (8.4-10.2) mg/dL AST 52 H (14-36) U/L ALT 50 H (4-34) U/L Total Protein 4.6 L (6.3-8.2) g/dL Albumin 2.3 L (3.5-5.0) g/dL Microbiology - Last 24 Hours (Table) 04/25/20 14:44 Blood Culture - Preliminary Blood No Growth after 96 hours Assessment and Plan Plan: Assessment: #1. Acute diabetic ketoacidosis, recovered #2. Bilateral lower lobe pulmonary infiltrates related to community acquired pneumonia, sputum culture positive for group B strep, patient is currently on Zosyn #3. Profound metabolic acidosis related to the above, improved #4. Altered mental status, related to metabolic encephalopathy, brain CT showed no acute abnormalities, improved, patient has been awake, and following commands and responding appropriately #5. Multiple electrolyte abnormalities, including hyperkalemia, hyponatremia, acidemia related to acute DKA, improved #6. Acute kidney injury, secondary to hypotension, acute tubular necrosis and hypovolemia #7. Hypotension, hypovolemic shock related to severe dehydration, rule out possibility of septic shock #8. Diabetes mellitus type 1, takes Toujeo insulin on a regular basis #9. 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 Lifetime nonsmoker Plan: Increase activity as tolerated, follow-up chest x-ray in the morning, patient is on room air, no worsening dyspnea, she has a effective cough, provided incentive spirometer, encouraged the patient to set up in the chair. No fever or chills, continue Zosyn for antibiotic coverage. Continue blood sugar monitoring, nephrology is following, renal profile still significantly impaired, patient appears to be a bit swollen, urine output is improving. Switch subcu heparin to Lovenox 30 mg daily. Follow-up CBC and BMP in the morning Patient is stable for transfer out of intensive care unit today to general medical floor. I performed a history & physical examination of the patient and discussed their management with my nurse practitioner, Bettina Heath. I reviewed the nurse practitioner's note and agree with the documented findings and plan of care. Lung sounds are positive for diminished breath sounds. The findings and the impression was discussed with the patient. I attest to the documentation by the nurse practitioner. Time with Patient: Less than 30
[2020-04-30 12:04] LABS: Glucose,Whole Blood 218 mg/dL (75-99)
--- NOTE | 2020-04-30 13:59 | PN ---
PROGRESS NOTE The patient is seen for followup for acute kidney injury. This morning patient is comfortable, awake. She has had great urine output at about 70 to 100 mL an hour. Serum creatinine is staying at 5.8 mg/dL. Overall mentation seems to have improved a little bit since yesterday. No obvious nausea or vomiting. However, oral intake is slowly increasing. PHYSICAL EXAMINATION: On examination today, patient is comfortable, awake, not in any acute distress. Blood pressure 100/82, heart rate 89 per minute. She is afebrile. EXAMINATION OF THE HEART: S1, S2. EXAMINATION OF LUNGS: Decreased breath sounds at bases. No crackles or wheezing is heard. No noted. Examination of lower extremities shows trace edema bilaterally upper and lower extremities. DIRECTOR OF SPEECH PATHOLOGY exam grossly intact. Patient is a bit slow, but she is moving all 4 extremities and comprehends well and is alert and oriented x3. No noted. LABS: Labs show sodium 140, potassium 4.0, chloride 113, CO2 is 18, BUN 87, creatinine 5.84, hemoglobin 11.0 g/dL. ASSESSMENT: 1. Acute kidney injury, acute tubular necrosis, associated with hypotension, hypovolemia, currently with improving renal function. Serum creatinine has not increased further. It is the same as yesterday. Urine output remains good and at this time we will continue to wait on dialysis. The patient does not need dialysis today. Hopefully she will recover without needing renal replacement therapy. 2. Severe diabetic ketoacidosis, currently resolved. 3. Severe metabolic acidosis associated with diabetic ketoacidosis and now from renal failure maintained on oral sodium bicarb and receiving 1 amp of bicarb in the IV fluids, which is based in half-normal saline to avoid the use of D5W. 4. Acute hypoxic respiratory failure, status post extubation. PLAN: Continue with the midodrine. Hold off on dialysis. Continue with current IV fluids as well as oral sodium bicarb. Repeat labs in a.m. Hopefully patient will not need renal replacement therapy. MMODL / IJN: [id number] /
[2020-04-30] MEDS: NOREPINEPHRINE 32 MG in SODIUM CHLORIDE 0.9% 218 ML IV SCH (14:29)
--- NOTE | 2020-04-30 16:30 | P.PN ---
Subjective 40-year-old female with known diabetic found unresponsive. Patient talked to the family members on Wednesday night after that the patient never responded to texts, family found her unresponsive in her own bed. Patient is found to be severely hypothermic bradycardic severely acidotic with pH of 6.5 with highly elevated blood sugar of 1200. And has to be intubated for protection of airway. Patient is presently on set up respiratory rate of 24 because of severe metabolic acidosis patient was started on IV insulin presently in normal saline and was to half-normal 7 because of hyperchloremia patient is also on bicarbonate drip along with norepinephrine and around the 13 g. Patient has a severe electrolyte abnormalities patient also had respiratory acidosis. Patient has highly elevated potassium patient received the calcium gluconate presently receiving bicarbonate and is also on IV insulin and this potassium potassium has come down now. 05/24/2020 Patient remains intubated had had a metabolic acidosis significantly improved patient pCO2 is a 29 pH is 7.39. Patient is on basic when setting send a set up respiratory of 24 at this time. We will wean off her sedation. Patient is presently unresponsive because of sedation. Patient's nystagmus improved. Patient is presently on around the 6-7 mcg/h of norepinephrine. Patient is also on very low dose of vasopressin the stool will be weaned off. Patient the DKA resolved but blood sugars remained high because of the D5 which she is receiving for bicarbonate drip which will be discontinued at this time patient will be continued on half-normal saline with insulin was a blood sugars come down to 300 also check to long-acting insulin dose will be decided depending on if patient will receive nutrition are not today. Patient will also be on sliding scale and additionally on pre-meal insulin as well. Patient's phosphorus is extremely low which will be replaced. Anion gap improved to 12 but the patient's bicarbonate is only 14 this is because of hyperchloremia. 04/27/2020 Patient is extubated today patient is waking up, still barely responsive to verbal still alive. Patient chest x-ray showing bilateral infiltrates and leukocytosis because patient was started on empiric empiric Zosyn for possible aspiration pneumonia. Patient's anion gap resolved yesterday patient still on D5 half-normal saline with insulin which will be transitioned to subcutaneous insulin whenever she needs then patient will be started on pre-meal insulin until then patient will be on every 6 hourly sliding scale. Patient will be continued and transitioned to half-normal saline. Will not require any potassium supplementation at this time patient creatinine still high nephrology was consulted. Creatinine is actually worse to 4.5 and patient's personal for being discontinued at this time. Patient does have urine output 04/28/2020 Patient is a more awake today and able to answer questions although patient does have some hoarseness of voice probably because of intubation. Patient looks tired week and appropriately answering questions. Patient kidney function continued to get worse has urine output around 30 mL per hour. Patient probably has acute tubular necrosis secondary to severe hypotension patient remains on Zosyn for possible aspiration pneumonia with bilateral lower lobes infiltrate patient is off insulin drip and patient is on 30 units of insulin patient was nothing by mouth until today morning pass a swallow evaluation patient will be continued on same 30 units and patient will be switched to 5 units 3 times a day with meals of short-acting insulin along with sliding scale insulin. Patient morning blood sugar is around 70 but patient was nothing by mouth. Physical therapy occupational therapy will evaluate the patient patient can use to be on norepinephrine at 0.05 mics per Gram per minute patient blood pressure is in 90s systolic with mean arterial pressure of around 65 04/29/2020 Patient is sitting in the chair still quite a bit week patient is on 30 units of long-acting insulin along with sliding scale with each meal blood sugars are well controlled creatinine continued to get worse. On dialysis for now patient is having urine output. 04/30/2020 and patient is clinically doing well at this time patient started having urine output creatinine stabilized a bit better today may not require any hemodialysis. Patient is quite weak related to go to subacute rehabilitation patient will transfer out of ICU. Constitutional: Denied any fatigue denied any fever. Cardio vascular: denied any chest pain, palpitations Gastrointestinal denied any nausea vomiting Pulmonary: Denied any shortness of breath cough Neurologic denied any new focal deficits All inpatient medications were reviewed and appropriate changes in these medications as dictated in the interval history and assessment and plan. Objective - Vital Signs Vital signs: Vital Signs Temp 98.6 F 04/30/20 12:00 Pulse 96 04/30/20 12:00 Resp 20 04/30/20 12:00 BP 98/74 04/30/20 12:00 Pulse Ox 94 L 04/30/20 12:00 Intake & Output 04/29/20 04/30/20 04/30/20 18:59 06:59 18:59 Intake Total 1475 1840 695 Output Total 469 665 440 Balance 1006 1175 255 Weight 85.9 kg 83.2 kg Intake: IV 1100 570 Piperacillin-Tazobactam 3 100 .375 gm In Sodium Chloride 0.9% 100 ml @ 25 mls/hr IVPB Q8HR JANELL Rx# :[id number] Sodium Chloride 0.45% 1, 1000 500 000 ml @ 125 mls/hr IV . Q8H JANELL Rx#:[id number] Sodium Chloride 0.45% 1, 70 000 ml @ 70 mls/hr IV . Q15H JANELL with Sodium Bicarb (1 Meq/ml) 50 ml Rx#:[id number] Intake, IV Titration 375 1600 125 Amount Piperacillin-Tazobactam 3 100 .375 gm In Sodium Chloride 0.9% 100 ml @ 25 mls/hr IVPB Q12HR JANELL Rx #:[id number] Sodium Chloride 0.45% 1, 375 1500 125 000 ml @ 70 mls/hr IV . Q15H JANELL with Sodium Bicarb (1 Meq/ml) 50 ml Rx#:[id number] Oral 240 Output: Urine 469 665 440 Other: Voiding Method Indwelling Catheter Indwelling Catheter Indwelling Catheter ABP, PAP, CO, CI - Last Documented Arterial Blood Pressure 98/80 - Exam PHYSICAL EXAMINATION: GENERAL: Patient is extubated at alert, orientatedX3 but quite weak to answer questions HEENT: Pupils are round and equally reacting to light. EOMI. No scleral icterus. No conjunctival pallor. Normocephalic, atraumatic. No pharyngeal erythema. No thyromegaly. CARDIOVASCULAR: S1 and S2 present. No murmurs, rubs, or gallops. PULMONARY: Chest is clear to auscultation, no wheezing or crackles. ABDOMEN: Soft, nontender, nondistended, normoactive bowel sounds. No palpable organomegaly. MUSCULOSKELETAL: No joint swelling or deformity. EXTREMITIES: No cyanosis, clubbing, or pedal edema. NEUROLOGICAL: Realized weakness doesn't appear to have any focal deficits SKIN: Patient does have some bruises and deep discoloration of the skin because of laying on the bed at home. - Labs CBC & Chem 7: 04/30/20 04:08 04/30/20 04:08 Labs: Abnormal Lab Results - Last 24 Hours (Table) 04/29/20 04/30/20 04/30/20 Range/Units 21:29 04:08 04:08 WBC 3.7 L (3.8-10.6) k/uL RBC 3.23 L (3.80-5.40) m/uL Hgb 11.0 L (11.4-16.0) gm/dL Hct 31.6 L (34.0-46.0) % Plt Count 83 L (150-450) k/uL Lymphocytes # 0.7 L (1.0-4.8) k/uL Chloride 113 H (98-107) mmol/L Carbon Dioxide 18 L (22-30) mmol/L BUN 87 H (7-17) mg/dL Creatinine 5.84 H (0.52-1.04) mg/dL Glucose 159 H (74-99) mg/dL POC Glucose (mg/dL) 278 H (75-99) mg/dL Calcium 7.5 L (8.4-10.2) mg/dL AST 52 H (14-36) U/L ALT 50 H (4-34) U/L Total Protein 4.6 L (6.3-8.2) g/dL Albumin 2.3 L (3.5-5.0) g/dL 04/30/20 04/30/20 Range/Units 06:45 12:02 WBC (3.8-10.6) k/uL RBC (3.80-5.40) m/uL Hgb (11.4-16.0) gm/dL Hct (34.0-46.0) % Plt Count (150-450) k/uL Lymphocytes # (1.0-4.8) k/uL Chloride (98-107) mmol/L Carbon Dioxide (22-30) mmol/L BUN (7-17) mg/dL Creatinine (0.52-1.04) mg/dL Glucose (74-99) mg/dL POC Glucose (mg/dL) 127 H 218 H (75-99) mg/dL Calcium (8.4-10.2) mg/dL AST (14-36) U/L ALT (4-34) U/L Total Protein (6.3-8.2) g/dL Albumin (3.5-5.0) g/dL Microbiology - Last 24 Hours (Table) 04/25/20 14:44 Blood Culture - Preliminary Blood No Growth after 96 hours Assessment and Plan Plan: -Profound metabolic acidosis: Resolved now Secondary to diabetic ketoacidosis a nd lactic acidosis and hyperkalemia. Patient is extubated on 04/27/2020. . Patient remains acidotic because of uremia renal failure and hyperchloremia 1 acute respiratory failure secondary to hypovolemic shock, diabetic ketoacidosis presently extubated-respiratory failure improved -Altered mental status, unresponsive state: Patient has respiratory failure secondary to this patient is presently intubated CT did not show any significant abnormality and this is secondary to profound metabolic acidosis and metabolic encephalopathy. Resolved now -Possible aspiration pneumonia for which the patient was started on Zosyn -Acute kidney injury : Most probably secondary to acute tubular necrosis from severe hypotension along with prerenal azotemia. Patient started having urine output creatinine stabilized and minimally better hopefully will not require any hemodialysis. -Hypovolemic shock: Secondary to severe intravascular volume depletion, patient is presently off pressor support -Type 1 diabetes mellitus: Insulin management as mentioned above. Patient's hemoglobin A1c is highly elevated probably poor compliance -Leukocytosis mostly reactive in nature -Pseudohyponatremia improved with IV fluids, -Hypothermia: Secondary to hypovolemic shock, improved -DVT prophylaxis with the heparin. GI prophylaxis with Protonix
[2020-04-30 16:48] LABS: Glucose,Whole Blood 270 mg/dL (75-99)
[2020-04-30 20:01] LABS: Glucose,Whole Blood 244 mg/dL (75-99)
[2020-04-30] MEDS: INSULIN DETEMIR (LEVEMIR) 100 UNIT/ML SYR SQ SCH (20:53)
[2020-05-01 03:50] LABS: HCT 29.9 % (34.0-46.0); HGB 10.1 gm/dL (11.4-16.0); MCHC 33.7 g/dL (31.0-37.0); MCV 100.8 fL (80.0-100.0); Mean Platelet Volume 8.8; Platelet Count 102 k/uL (150-450); RBC 2.96 m/uL (3.80-5.40); RDW 13.3 % (11.5-15.5); WBC 3.1 k/uL (3.8-10.6)
[2020-05-01 04:07] LABS: Calcium 7.4 mg/dL (8.4-10.2); Potassium 3.9 mmol/L (3.5-5.1)
[2020-05-01 07:01] LABS: Glucose,Whole Blood 134 mg/dL (75-99)
[2020-05-01] MEDS: PANTOPRAZOLE 40 MG TABLET PO SCH (07:04)
[2020-05-01] MEDS: MIDODRINE 5 MG TAB PO SCH ×3 (07:04→17:24)
[2020-05-01] MEDS: INSULIN ASPART (NovoLOG) 100 UNIT/ML VIAL SQ SCH ×6 (07:04→22:20)
--- NOTE | 2020-05-01 07:31 | XR ---
EXAMINATION TYPE: XR chest 1V DATE OF EXAM: 05/01/2020 COMPARISON: 04/28/2020 HISTORY: 40-year-old female pneumonia TECHNIQUE: Single frontal view of the chest is obtained. FINDINGS: Heart normal size. The patient is obliqued toward the left. Bibasilar opacities persist with layering hazy effusions up to the midlung levels and at the left costophrenic angle. IMPRESSION: Small to moderate layering effusions with adjacent atelectasis and/or consolidation slightly increase d prior exam.
--- NOTE | 2020-05-01 09:20 | P.PN ---
Subjective Progress Note Date: 05/01/20 Principal diagnosis: Pneumonia, diabetic ketoacidosis 40-year-old female patient with past history of diabetes mellitus type 1, who was brought into the hospital on 04/25/2020 per EMS for evaluation of altered mental status. The patient is a schoolteacher, she lives by herself, and there were 2 snow days related to the weather. Today patient did not show up for work and the patient's family had not heard from the patient for 2 days and that when they went over to check on her patient was only responsive to painful stimuli and was just moaning and groaning. She was bradycardic when EMS arrived with heart rate in the 40s. There was no evidence of any traumatic injury. Blood sugar was checked at the scene and was too high for a read on the glucometer and patient was very cold. Blood pressure was within normal limits. Patient was extremely hypothermic, she had possibly been in bed for the last 48 hours. Blood gas was obtained in the emergency department showing pH of less than 6.8, pCO2 of 20, pO2 of greater than 400, and bicarbonate concentration of 2 this was done on FiO2 100%. BMP revealed potassium of 8, bicarbonate concentration of less than 5, glucose was 1234, BUN was 51 and creatinine was 4.05. Urinalysis showed 4+ glucose, 2+ proteins, 2+ ketones, serum acetone was positive. White blood cell count was 15.7, hemoglobin is 14.8, hematocrit was 51.2, with MCV of 117, and marked macrocytosis. Coronavirus PCR was negative. Patient was given a total of 4 L in fluid boluses, was started on insulin infusion per DKA protocol, she received 1 amp of sodium bicarbonate and was started on D5 half-normal saline with 3 A of bicarb at 200 ML per hour. Patient was intubated and placed on mechanical ventilator. Current vent settings are assist control mode of ventilation with a rate of 20, tidal lines 450, FiO2 of 40% and PEEP of 5. Brain CT showed no acute intracranial process. Chest x-ray showed mild interstitial prominence, no consolidation or pleural effusion, ET tube was noted to be 1.9 cm from the hany. NG-tube was inserted and was noted to be above the GE junction with the recommendation to advanced at 6 cm further into the stoma ch. Patient was hypothermic with a temp of 84.6 on arrival, hypotensive, she is receiving fluid boluses. She continues on bicarbonate drip at 200 ML per hour, however her blood pressure is still low in the 80s over 40s, patient is not on any sedation, she is unresponsive. Her temperature has improved, last rectal temp is 98.6F. Recheck blood work was obtained showing potassium of 4.3, sodium is 137, bicarbonate concentration is less than 5, BUN is 50, creatinine is 3.32, GFR is 17, glucose is 903, blood gas showed pO2 of 212, pCO2 of 17, and pH of 6.88. Patient was reevaluated today on 04/26/2020, patient remains in the ICU, intubated and mechanically ventilated. Her ventilator settings are assist control rate of 24 FiO2 is 30% tidal volume is 450 and PEEP is 5. ABG showed a pO2 of 119 pCO2 of 29 pH of 7.32. Bicarb is 14, anion gap is 12. Blood sugar remains in the 500 range. Patient remains on propofol at 15 mcg/kg/m, discontinued her bicarb drip, remains on insulin at 14.5 units per hour. Patient is now hemodynamically stable, required norepinephrine and vasopressin yesterday and she received significant amount of fluids almost over 7 L. Her low blood pressure seems to be mostly related to propofol, when the patient was taken off propofol this morning, her blood pressure was as high as 160s systolic. As soon as she was placed back on propofol, there was clearly evidence of drop in her blood pressure. Off propofol, patient was restless and agitated, thrashing in bed, would not follow any instructions, and clearly based on her overall clinical status, she is not ready to be weaned, hence I recommended just goes back on propofol. CBC is relatively normal. Potassium remains low at 2.7, patient is receiving significant amount of potassium for replacement. Renal profile is abnormal with a BUN of 59 and creatinine of 3.62 chest x-ray is relatively unremarkable. Patient was reevaluated today on 04/27/2020, remains in the ICU, intubated and mechanically ventilated. Patient remains on assist control mode of mechanical ventilation, rate is 24, tidal volume is 450 FiO2 is 30%, and PEEP is 5. ABG showed a pO2 of 125 pCO2 of 29 pH of 7.46. Patient remains on propofol at 40 mcg/kg/m, remains on norepinephrine at 0.08 mcg/kg/m, requirement seems to be higher and the propofol dose is increased. She is on insulin at 5.6 units per hour, her sugars are running in the range of 160, and I recommended stopping her 0.9 normal saline, and went to D5 45 at 150 ML per hour, and we will get the insulin dose down and likely discontinue and eventually transitioned to subcu insulin and Lantus insulin. Her renal functioning however is quite concerning, she continues to have elevated creatinine and I requested a nephrology consultation on this patient. I am not certain whether this is an acute kidney injury or chronic kidney injury or both, patient may have had chronic kidney injury related to her ongoing diabetes./Diabetic nephropathy. Today I have held her propofol, and I plan to give the patient a trial of pressure support and CPAP when she is awake, and if she does well I will likely extubate the patient. I did recommend more fluids to be given hopefully will get rid of norepinephrine today. Urine output is good however she required Lasix yesterday because it dropped down significantly in spite of significant amount of fluids given since admission probably over 8 L however the urine output improved with Lasix. And she continues to have almost 50 mL per hour. CBC today is relatively normal. Electrolytes are normal, bicarb is up to 20, and her anion gap is 8/corrected. BUN is 65 creatinine 4.51. Admission creatinine was 4.05. Cortisol level was 47. Phosphorus is being corrected as per protocol, was as low as 0.5 yesterday, it is 1.3 today 04/28/2020 I'm seeing the patient for a follow-up in the intensive care unit. Note that this patient is 40, diabetic and she came with DKA and severe anion gap metabolic acidosis, she was hypotensive and she required intubation mechanical ventilation during the process and the patient was treated regarding her DKA. She also had an acute kidney injury. She also had to be intubated and placed on mechanical ventilator in the sputum was showing strep group B covered with IV Zosyn. This morning, the patient is extubated and she is on room air oxygen. She is awake and alert and following commands and answering questions. Extubation was done yesterday morning after the patient was given a spontaneous breathing trial which she was able to tolerate and subsequently she was ext ubated. She is currently on IV fluids with half-normal saline at the rate of 125 mL an hour. She is currently off the insulin drip. The most recent blood sugar from this morning is running at 72. Blood work, the patient's has a serum bicarb of 18 and his sodium is at 146 with a chloride of 121 and anion gap is at 7. The morning blood sugar from the lab was 69. Nevertheless, the patient developed an acute kidney injury in the creatinine is up to 5.4 this morning. Her urine output is in order of is an hour. Her dynamically, she still requiring pressors and the patient is currently on levo fed running at 0.05 mcg/kg per minute. This is needed to maintain a mean arterial pressure above 65. Chest x-ray from today shows lower lobe pulmonary infiltrates worse on the left and there is interval removal of the orotracheal tube. Neurologically, she was encephalopathic and had neurologic function is improved considerably and she is awake and alert and following commands and answering questions. She was seen by nephrology yesterday and adjusted acute kidney injury and the patient was seen by Dr. Spaulding and based on assessment acute kidney injury is probably related to hypovolemia an ATN induced at a time of her DKA. On 04/29/2020 patient seen in follow-up in the intensive care unit, she opens eyes to voice, her voice is hoarse, she is very weak, no signs of any respiratory distress, she does have a harsh reductive cough, she is bringing up some clear to white phlegm. She is oriented 2, she knew she was in the hospital at [facility], she thought it was May, but knew the correct year. She is answering questions appropriate, she is a bit sleepy. She states her PCP is Dr. García, and apparently she does see a diabetic specialist Dr. Ferguson for her diabetes care. She states that she had been compliant with her insulin. The patient required intubation and mechanical ventilator support for several days for community acquired pneumonia, and her sputum cultures positive for group B strep, blood cultures have been negative, patient is on Zosyn. She is also on half-normal saline with 1 amp of bicarbonate at a rate of 125 ML, no vasopressors, she has been running a low-grade fever, with a temp of 99.3F. She is tolerating oral diet, no nausea vomiting. Today's lab work has been reviewed, showing white blood cell, 6.3, hemoglobin is 10, renal profile continues to worsen, BUN is 76, creatinine is 5.89, and nephrology is following. Abdominal ultrasound of the kidneys and bladder revealed no evidence of hydronephrosis, no nephrolithiasis no masses. Last chest x-ray was yesterday showing basilar infiltrates and small left-sided pleural effusion. She is producing urine in the order of 40-75 ML per hour. She is mildly generally swollen. On 04/30/2020 patient seen in follow-up in the intensive care unit, she is breathing comfortably, she is on room air, pulse ox is 94-98%, she's been afebrile, hemodynamically she is stable, she is on 0.45 with 1 amp of bicarbonate at a rate of 125 ML per hour, her oral intake has remained limited because of her sore throat. She is on full liquid diet right now, and her appetite has been poor. Her affect is quite flat and at times patient refuses to participate with physical therapy. She seems depressed. She is answering questions appropriately, she denies any shortness of breath, she has a productive cough, phlegm is thin and clear at times quite. No hemoptysis, no new chest x-ray today. Indwelling catheter remains in place, patient has been producing 5225 ML in urine output in the last 24 hours, renal profile continues to be impaired, relatively stable compared to yesterday, BUN is 87, creatinine is 5.84, potassium is 4, CO2 remains low at 18, sodium is 140. appears to be generally swollen with the edema in her upper and lower extremities. White blood cell count today is 3.7, hemoglobin is 11, platelet count is 83, patient has been on subcutaneous heparin for DVT prophylaxis which we will discontinue and put the patient on Lovenox with renal adjustment. Small amount of liquid stool, C. diff was negative, patient continues on Zosyn, for evidence of group B strep pneumonia. On 05/01/2020 patient seen in follow-up in the intensive care unit. Her affect seems to be a little bit more animated today, she denies any acute distress, her sore throat is improving, and her diet has been upgraded to consistent carbohydrate diet and her appetite is improving. Denies any shortness of breath, still has a harsh congested cough, lung sounds are positive for a few scattered rhonchi. Patient is producing some clear phlegm. She continues on antibiotics for group B strep pneumonia. Her labs today show white blood cell count of 3.1, hemoglobin of 10.1, sodium is 139, potassium 3.9, chloride is 111, CO2 is 19, BUN is 88, creatinine is 5.56 relatively stable renal profile. Leos catheter has remained in place, patient is producing urine, however she is again in pos itive fluid balance of 2.1 L over the last 24 hours, and overall she is almost 20 kg positive since admission. She appears generally swollen, nonpitting edema in upper and lower extremities, skin is tight and swollen on bilateral lower extremities. Abdomen is soft, no nausea vomiting or diarrhea, tolerating oral intake. Yesterday patient worked with physical therapy, and was able to walk to the bathroom with assistance. She is in sinus mechanism on the monitor, blood pressure has been stable, she remains on half-normal saline 1 amp of bicarb and rate of 70 ML per hour, she is also receiving oral bicarbonate Objective - Vital Signs Vital signs: Vital Signs Temp 98.8 F 05/01/20 02:00 Pulse 91 05/01/20 02:00 Resp 17 05/01/20 02:00 BP 95/62 05/01/20 02:00 Pulse Ox 95 05/01/20 02:00 Intake & Output 04/30/20 05/01/20 05/01/20 18:59 06:59 18:59 Intake Total 975 980 Output Total 840 1125 Balance 135 -145 Intake: IV 850 980 Sodium Chloride 0.45% 1, 500 000 ml @ 125 mls/hr IV . Q8H JANELL Rx#:[id number] Sodium Chloride 0.45% 1, 350 980 000 ml @ 70 mls/hr IV . Q15H JANELL with Sodium Bicarb (1 Meq/ml) 50 ml Rx#:[id number] Intake, IV Titration 125 Amount Sodium Chloride 0.45% 1, 125 000 ml @ 70 mls/hr IV . Q15H JANELL with Sodium Bicarb (1 Meq/ml) 50 ml Rx#:[id number] Output: Urine 840 1125 Other: Voiding Method Indwelling Catheter ABP, PAP, CO, CI - Last Documented Arterial Blood Pressure 98/80 - Exam GENERAL EXAM: Awake, 40-year-old white female, oriented 3, has a flat affect, on, room air with a pulse ox of 97% comfortable in no apparent distress. Patient has abrasions in the corners of her mouth from ET tube tie HEAD: Normocephalic/atraumatic. EYES: Normal reaction of pupils, equal size. Conjunctiva pink, sclera white. NOSE: Clear with pink turbinates. THROAT: No erythema or exudates. NECK: No masses, no JVD, no thyroid enlargement, no adenopathy. CHEST: No chest wall deformity. Symmetrical expansion. LUNGS: Equal air entry with basilar crackles, diminished breath sounds at the bases CVS: Regular rate and rhythm, normal S1 and S2, no gallops, no murmurs, no rubs ABDOMEN: Soft, nontender. No hepatosplenomegaly, normal bowel sounds, no guarding or rigidity. EXTREMITIES: No clubbing, Gen. edema, and edema involving upper and lower extremities noted, no cyanosis, 2+ pulses and upper and lower extremities. MUSCULOSKELETAL: Muscle strength and tone normal. SPINE: No scoliosis or deformity SKIN: No rashes CENTRAL NERVOUS SYSTEM: Alert and oriented -3. No focal deficits, tone is normal in all 4 extremities. PSYCHIATRIC: Alert and oriented -3. Appropriate affect. Intact judgment and insight. - Labs CBC & Chem 7: 05/01/20 03:35 05/01/20 03:35 Labs: Abnormal Lab Results - Last 24 Hours (Table) 04/30/20 04/30/20 04/30/20 Range/Units 12:02 16:47 20:00 WBC (3.8-10.6) k/uL RBC (3.80-5.40) m/uL Hgb (11.4-16.0) gm/dL Hct (34.0-46.0) % MCV (80.0-100.0) fL Plt Count (150-450) k/uL Chloride (98-107) mmol/L Carbon Dioxide (22-30) mmol/L BUN (7-17) mg/dL Creatinine (0.52-1.04) mg/dL Glucose (74-99) mg/dL POC Glucose (mg/dL) 218 H 270 H 244 H (75-99) mg/dL Calcium (8.4-10.2) mg/dL 05/01/20 05/01/20 05/01/20 Range/Units 03:35 03:35 06:59 WBC 3.1 L (3.8-10.6) k/uL RBC 2.96 L (3.80-5.40) m/uL Hgb 10.1 L (11.4-16.0) gm/dL Hct 29.9 L (34.0-46.0) % MCV 100.8 H (80.0-100.0) fL Plt Count 102 L (150-450) k/uL Chloride 111 H (98-107) mmol/L Carbon Dioxide 19 L (22-30) mmol/L BUN 88 H (7-17) mg/dL Creatinine 5.56 H (0.52-1.04) mg/dL Glucose 166 H (74-99) mg/dL POC Glucose (mg/dL) 134 H (75-99) mg/dL Calcium 7.4 L (8.4-10.2) mg/dL Microbiology - Last 24 Hours (Table) 04/25/20 14:44 Blood Culture - Preliminary Blood No Growth after 120 hours Assessment and Plan Plan: Assessment: #1. Acute diabetic ketoacidosis, recovered #2. Bilateral lower lobe pulmonary infiltrates related to community acquired pneumonia, sputum culture positive for group B strep, patient is currently on Zosyn #3. Profound metabolic acidosis related to the above, improved #4. Altered mental status, related to metabolic encephalopathy, brain CT showed no acute abnormalities, improved, patient has been awake, and following commands and responding appropriately #5. Multiple electrolyte abnormalities, including hyperkalemia, hyponatremia, acidemia related to acute DKA, improved #6. Acute kidney injury, secondary to hypotension, acute tubular necrosis and hypovolemia #7. Hypotension, hypovolemic shock related to severe dehydration, rule out possibility of septic shock #8. Diabetes mellitus type 1, takes Toujeo insulin on a regular basis #9. 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 Lifetime nonsmoker Plan: Continue current antibiotics, continue encouraging deep breathing and coughing, incentive spirometry use, no fever or chills, chest x-ray has been reviewed showing small to moderate pleural effusions with adjacent atelectasis. Generally patient is swollen, she is positive almost 20 kg since admission. Renal function continues to be impaired, nephrology is following, we will inquire whether with the patient needs diuretics or renal replacement therapy. Continue physical therapy, increase activity as tolerated, patient is tolerating oral diet, patient is on room air, denies any shortness of breath. We'll continue to closely follow. I performed a history & physical examination of the patient and discussed their management with my nurse practitioner, Bettina Heath. I reviewed the nurse practitioner's note and agree with the documented findings and plan of care. Lung sounds are positive for diminished breath sounds. The findings and the impression was discussed with the patient. I attest to the documentation by the nurse practitioner. Time with Patient: Less than 30
[2020-05-01] MEDS: SODIUM CHLORIDE 0.45% 1,000 ML with SODIUM BICARB (1 MEQ/ML) 50 ML IV SCH ×2 (10:13)
[2020-05-01] MEDS: SODIUM BICARBONATE TAB 650 MG TAB PO SCH ×2 (10:40→22:20)
[2020-05-01] MEDS: ENOXAPARIN 30 MG/0.3 ML SYRINGE SQ SCH (10:41)
[2020-05-01] MEDS: PIPERACILLIN-TAZOBACTAM 3.375 GM in SODIUM CHLORIDE 0.9% 100 ML IVPB SCH ×2 (10:41→22:19)
[2020-05-01] MEDS: HEPARIN SODIUM,PORCINE 5,000 UNIT/ML 1 ML VIAL SQ SCH (10:47)
[2020-05-01 10:49] VITALS: BMI 30.5
--- NOTE | 2020-05-01 11:16 | P.PN ---
Subjective 40-year-old female with known diabetic found unresponsive. Patient talked to the family members on Wednesday night after that the patient never responded to texts, family found her unresponsive in her own bed. Patient is found to be severely hypothermic bradycardic severely acidotic with pH of 6.5 with highly elevated blood sugar of 1200. And has to be intubated for protection of airway. Patient is presently on set up respiratory rate of 24 because of severe metabolic acidosis patient was started on IV insulin presently in normal saline and was to half-normal 7 because of hyperchloremia patient is also on bicarbonate drip along with norepinephrine and around the 13 g. Patient has a severe electrolyte abnormalities patient also had respiratory acidosis. Patient has highly elevated potassium patient received the calcium gluconate presently receiving bicarbonate and is also on IV insulin and this potassium potassium has come down now. 04/26/2020 Patient remains intubated had had a metabolic acidosis significantly improved patient pCO2 is a 29 pH is 7.39. Patient is on basic when setting send a set up respiratory of 24 at this time. We will wean off her sedation. Patient is presently unresponsive because of sedation. Patient's nystagmus improved. Patient is presently on around the 6-7 mcg/h of norepinephrine. Patient is also on very low dose of vasopressin the stool will be weaned off. Patient the DKA resolved but blood sugars remained high because of the D5 which she is receiving for bicarbonate drip which will be discontinued at this time patient will be continued on half-normal saline with insulin was a blood sugars come down to 300 also check to long-acting insulin dose will be decided depending on if patient will receive nutrition are not today. Patient will also be on sliding scale and additionally on pre-meal insulin as well. Patient's phosphorus is extremely low which will be replaced. Anion gap improved to 12 but the patient's bicarbonate is only 14 this is because of hyperchloremia. 04/27/2020 Patient is extubated today patient is waking up, still barely responsive to verbal still alive. Patient chest x-ray showing bilateral infiltrates and leukocytosis because patient was started on empiric empiric Zosyn for possible aspiration pneumonia. Patient's anion gap resolved yesterday patient still on D5 half-normal saline with insulin which will be transitioned to subcutaneous insulin whenever she needs then patient will be started on pre-meal insulin until then patient will be on every 6 hourly sliding scale. Patient will be continued and transitioned to half-normal saline. Will not require any potassium supplementation at this time patient creatinine still high nephrology was consulted. Creatinine is actually worse to 4.5 and patient's personal for being discontinued at this time. Patient does have urine output 04/28/2020 Patient is a more awake today and able to answer questions although patient does have some hoarseness of voice probably because of intubation. Patient looks tired week and appropriately answering questions. Patient kidney function continued to get worse has urine output around 30 mL per hour. Patient probably has acute tubular necrosis secondary to severe hypotension patient remains on Zosyn for possible aspiration pneumonia with bilateral lower lobes infiltrate patient is off insulin drip and patient is on 30 units of insulin patient was nothing by mouth until today morning pass a swallow evaluation patient will be continued on same 30 units and patient will be switched to 5 units 3 times a day with meals of short-acting insulin along with sliding scale insulin. Patient morning blood sugar is around 70 but patient was nothing by mouth. Physical therapy occupational therapy will evaluate the patient patient can use to be on norepinephrine at 0.05 mics per Gram per minute patient blood pressure is in 90s systolic with mean arterial pressure of around 65 04/29/2020 Patient is sitting in the chair still quite a bit week patient is on 30 units of long-acting insulin along with sliding scale with each meal blood sugars are well controlled creatinine continued to get worse. On dialysis for now patient is having urine output. 04/30/2020 and patient is clinically doing well at this time patient started having urine output creatinine stabilized a bit better today may not require any hemodialysis. Patient is quite weak related to go to subacute rehabilitation patient will transfer out of ICU. 04/30/2020 Patient has marginal improvement in serum creatinine does have urine output. Hopefully will not require any dialysis 05/01/2020 Blood sugars are bit elevated patient will be started on pre-meal insulin patient has been very hemolytic streptococci in the sputum. Zosyn will be discontinued and patient was started on Rocephin. Patient has some, although marginal improvement in symptom creatinine does have urine output patient will be continued to monitor for any need for hemodialysis patient will need to be discharged to subacute rehabilitation Constitutional: Denied any fatigue denied any fever. Cardio vascular: denied any chest pain, palpitations Gastrointestinal denied any nausea vomiting Pulmonary: Denied any shortness of breath cough Neurologic denied any new focal deficits All inpatient medications were reviewed and appropriate changes in these medications as dictated in the interval history and assessment and plan. Objective - Vital Signs Vital signs: Vital Signs Temp 98.0 F 05/01/20 08:00 Pulse 85 05/01/20 08:00 Resp 14 05/01/20 08:00 BP 107/71 05/01/20 08:00 Pulse Ox 97 05/01/20 08:00 Intake & Output 04/30/20 05/01/20 05/01/20 18:59 06:59 18:59 Intake Total 975 980 Output Total 840 1125 350 Balance 135 -145 -350 Weight 83.2 kg Intake: IV 850 980 Sodium Chloride 0.45% 1, 500 000 ml @ 125 mls/hr IV . Q8H JANELL Rx#:[id number] Sodium Chloride 0.45% 1, 350 980 000 ml @ 70 mls/hr IV . Q15H JANELL with Sodium Bicarb (1 Meq/ml) 50 ml Rx#:[id number] Intake, IV Titration 125 Amount Sodium Chloride 0.45% 1, 125 000 ml @ 70 mls/hr IV . Q15H JANELL with Sodium Bicarb (1 Meq/ml) 50 ml Rx#:[id number] Output: Urine 840 1125 350 Other: Voiding Method Indwelling Catheter Indwelling Catheter ABP, PAP, CO, CI - Last Documented Arterial Blood Pressure 98/80 - Exam PHYSICAL EXAMINATION: GENERAL: Patient is extubated at alert, orientatedX3 but quite weak to answer questions HEENT: Pupils are round and equally reacting to light. EOMI. No scleral icterus. No conjunctival pallor. Normocephalic, atraumatic. No pharyngeal erythema. No thyromegaly. CARDIOVASCULAR: S1 and S2 present. No murmurs, rubs, or gallops. PULMONARY: Chest is clear to auscultation, no wheezing or crackles. ABDOMEN: Soft, nontender, nondistended, normoactive bowel sounds. No palpable organomegaly. MUSCULOSKELETAL: No joint swelling or deformity. EXTREMITIES: No cyanosis, clubbing, or pedal edema. NEUROLOGICAL: Realized weakness doesn't appear to have any focal deficits SKIN: Patient does have some bruises and deep discoloration of the skin because of laying on the bed at home. - Labs CBC & Chem 7: 05/01/20 03:35 05/01/20 03:35 Labs: Abnormal Lab Results - Last 24 Hours (Table) 04/30/20 04/30/20 04/30/20 Range/Units 12:02 16:47 20:00 WBC (3.8-10.6) k/uL RBC (3.80-5.40) m/uL Hgb (11.4-16.0) gm/dL Hct (34.0-46.0) % MCV (80.0-100.0) fL Plt Count (150-450) k/uL Chloride (98-107) mmol/L Carbon Dioxide (22-30) mmol/L BUN (7-17) mg/dL Creatinine (0.52-1.04) mg/dL Glucose (74-99) mg/dL POC Glucose (mg/dL) 218 H 270 H 244 H (75-99) mg/dL Calcium (8.4-10.2) mg/dL 05/01/20 05/01/20 05/01/20 Range/Units 03:35 03:35 06:59 WBC 3.1 L (3.8-10.6) k/uL RBC 2.96 L (3.80-5.40) m/uL Hgb 10.1 L (11.4-16.0) gm/dL Hct 29.9 L (34.0-46.0) % MCV 100.8 H (80.0-100.0) fL Plt Count 102 L (150-450) k/uL Chloride 111 H (98-107) mmol/L Carbon Dioxide 19 L (22-30) mmol/L BUN 88 H (7-17) mg/dL Creatinine 5.56 H (0.52-1.04) mg/dL Glucose 166 H (74-99) mg/dL POC Glucose (mg/dL) 134 H (75-99) mg/dL Calcium 7.4 L (8.4-10.2) mg/dL Microbiology - Last 24 Hours (Table) 04/25/20 14:44 Blood Culture - Preliminary Blood No Growth after 120 hours Assessment and Plan Plan: -Profound metabolic acidosis: Resolved now Secondary to diabetic ketoacidosis and lactic acidosis and hyperkalemia. Patient is extubated on 04/27/2020. . Patient remains acidotic because of uremia renal failure and hyperchloremia 1 acute respiratory failure secondary to hypovolemic shock, diabetic ketoacidosis presently extubated-respiratory failure improved -Altered mental status, unresponsive state: Patient has respiratory failure secondary to this patient is presently intubated CT did not show any significant abnormality and this is secondary to profound metabolic acidosis and metabolic encephalopathy. Resolved now -Pneumonia with the strep agalactiae can be aspiration pneumonia patient will be switched to Rocephin and Zosyn will be discontinued -Acute kidney injury : Most probably secondary to acute tubular necrosis from severe hypotension along with prerenal azotemia. Patient started having urine output creatinine stabilized and minimally better hopefully will not require any hemodialysis. -Hypovolemic shock: Secondary to severe intravascular volume depletion, patient is presently off pressor support -Type 1 diabetes mellitus: Insulin management as mentioned above. Patient's hemoglobin A1c is highly elevated probably poor compliance -Leukocytosis mostly reactive in nature -Pseudohyponatremia improved with IV fluids, -Hypothermia: Secondary to hypovolemic shock, improved -DVT prophylaxis with the heparin. GI prophylaxis with Protonix
[2020-05-01 11:41] LABS: Glucose,Whole Blood 189 mg/dL (75-99)
--- NOTE | 2020-05-01 12:24 | PN ---
PROGRESS NOTE Patient is seen for followup for acute kidney injury secondary to hypotension. The patient's urine output is maintained. Renal function remains quite weak. However, creatinine is decreased from yesterday for the first time today. Overall, patient is more awake. She is able to carry on a regular conversation. Urine output remains good at 24 hour output of about 1.9 L. PHYSICAL EXAMINATION: On examination today, blood pressure was 95/62, heart rate 91 per minute. She is afebrile. EXAMINATION OF THE HEART: S1, S2. EXAMINATION OF THE LUNGS: Bilateral breath sounds are heard. Abdomen is soft, nontender. Examination of lower extremities trace edema. There is no asterixis noted. LABS: Labs today show sodium 139, potassium 3.9, chloride 111, CO2 is 19, BUN 88, creatinine 5.56, hemoglobin 10.1 g/dL. ASSESSMENT: 1. Acute kidney injury secondary to hypotension on admission with severe acute tubular necrosis currently creatinine on the downward trend. We have held off on dialysis as patient has had good urine output and she is showing signs of recovery and also because her blood pressure is borderline with occasional hypotension. This will further delay the recovery of renal function if there is no emergent indication for renal replacement therapy. 2. Metabolic acidosis, currently improved. 3. Mild volume overload. 4. Severe diabetic ketoacidosis on initial admission currently resolved. 5. Pneumonia with sputum culture growing group B strep. PLAN: Discontinue IV fluids. Continue with oral sodium bicarb. Repeat labs in a.m. If the patient's renal function is not further improved tomorrow, I will likely proceed with dialysis. However, I will like to hold off for now as of dialysis will predispose to further hypotension and hinder recovery of renal function as long as there is no acute indication for renal replacement therapy. MMODL / IJN: [id number] /
[2020-05-01 16:51] LABS: Glucose,Whole Blood 179 mg/dL (75-99)
[2020-05-01 19:52] LABS: Hepatitis B Surface AB- Quant 3.5 mIU/mL; Hepatitis B Surface Antibody Non-Reactive (Non-Reactive); Hepatitis B Surface Antigen Non-Reactive (Non-Reactive)
[2020-05-01 19:59] LABS: Glucose,Whole Blood 204 mg/dL (75-99)
[2020-05-01] MEDS ORDERED: INSULIN DETEMIR (LEVEMIR) 100 UNIT/ML SYR SQ SCH (21:00)
[2020-05-01 22:16] LABS: Glucose,Whole Blood 178 mg/dL (75-99)
[2020-05-02 06:52] LABS: Glucose,Whole Blood 44 mg/dL (75-99)
[2020-05-02 07:05] LABS: Glucose,Whole Blood 45 mg/dL (75-99)
[2020-05-02] MEDS: INSULIN ASPART (NovoLOG) 100 UNIT/ML VIAL SQ SCH ×7 (07:10→20:16)
--- NOTE | 2020-05-02 07:24 | P.CONS ---
History of Present Illness - Chief Complaint Medical debility - History of Present Illness I had the opportunity to see patient for inpatient rehab consultation with regard to medical debility. Patient admitted to [facility] April 25 with history of not being heard from for 2 days and then found unresponsive and in DKA. Seen by vice president mission integration, for ICU care. Chest x-ray demonstrates effusions and atelectasis. Renal ultrasound negative for hydronephrosis. Minimal assistance for bed mobility, transfers, gait of up to 32 feet with roller walker. OT reports minimal assistance for upper dressing and maximal assistance for lower dressing, moderate assistance for bathing and total assistance for toileting. Minimal to moderate for transfers. Previous functional history as elicited from patient: 40-year-old ambidextrous white female who is single lives in a 1 floor home alone. She is a teacher. Describes previously independent indeed and denies tobacco or alcohol. PMD Dr. Ferguson. Review of Systems Review of systems: ENT: Denies sneezes or discharge. Eyes: Denies discharge or photophobia. Cardiac: Denies chest pain or palpitation. Pulmonary: Denies cough or shortness of breath. Breast: Denies discharge or lumps. Gastrointestinal: Denies nausea, emesis, constipation, diarrhea. Genitourinary: Denies discharge or frequency. Musculoskeletal: Denies muscle or bone aches. Neurologic: Generalized weakness and decreased voice volume. Endocrine: Denies shakes or sweats. Oncology: Denies cancers. Dermatologic: Denies rash, itching, pruritus. ALLERGY/immunology: Denies sneezes, rashes. 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, wisdom teeth Past Anesthesia/Blood Transfusion Reactions: No Reported Reaction Past Psychological History: No Psychological Hx Reported Past Alcohol Use History: None Reported Past Drug Use History: None Reported - Past Family History Father Family Medical History: No Reported History Additional Family Medical History / Comment(s): Father is healthy Mother Family Medical History: No Reported History Additional Family Medical History / Comment(s): Mother is healthy Medications and Allergies Home Medications Medication Instructions Recorded Confirmed Type Insulin Glargine,Hum.rec.anlog 40 units SQ HS 04/25/20 04/25/20 History [Asad Ta] Allergies Allergy/AdvReac Type Severity Reaction Status Date / Time No Known Allergies Allergy Verified 04/25/20 08:48 Physical Exam Vitals: Vital Signs Temp Pulse Pulse Resp BP Pulse Ox 05/02/20 02:00 98.5 F 78 18 115/75 95 05/01/20 22:30 18 05/01/20 20:00 98 F 76 14 103/72 97 05/01/20 14:00 97.6 F 78 14 104/76 98 05/01/20 08:00 98.0 F 85 14 107/71 97 Intake and Output 05/01/20 05/02/20 05/02/20 22:59 06:59 14:59 Intake Total 900 Output Total 890 1250 Balance 10 -1250 Intake: Oral 900 Output: Urine 890 1250 Other: Voiding Method Indwelling Catheter # Bowel Movements 3 Skin: Good color, texture, turgor. General: Medium build and comfortable appearance. Head: Normocephalic, atraumatic. Eyes: Symmetric. Pupils equal round. Ears: Symmetric. Hearing within normal limits. Mouth: Clear. Neck: Supple. Carotid without bruit. Cardiac: Regular rate and rhythm. Lungs: Clear anteriorly and posteriorly. Abdomen: Soft active nontender. Extremities: Normal tone. Neurological: Mental status: Alert, cooperative, pleasant. Low voice quality. Cranial nerves: Symmetric facial tone and trapezius. Motor: Active movement all 4 limbs. Sensation: Intact throughout. DTRs: Symmetric and equal throughout. Mobility: Requires assistance for mobility in room. Results CBC & Chem 7: 05/01/20 03:35 05/01/20 03:35 Labs: Abnormal Lab Results - Last 24 Hours (Table) 05/01/20 05/01/20 05/01/20 Range/Units 11:40 16:49 19:58 POC Glucose (mg/dL) 189 H 179 H 204 H (75-99) mg/dL 05/01/20 05/02/20 05/02/20 Range/Units 22:13 06:48 07:03 POC Glucose (mg/dL) 178 H 44 L 45 L (75-99) mg/dL Microbiology - Last 24 Hours (Table) 04/25/20 14:44 Blood Culture - Final Blood No Growth after 144 hours Assessment and Plan (1) DKA (diabetic ketoacidoses) Current Visit: Yes Status: Acute Code(s): E11.10 - TYPE 2 DIABETES MELLITUS WITH KETOACIDOSIS WITHOUT COMA SNOMED Code(s): 171868749 Plan: Impression: 1. Medical debility with mental status change and unresponsive. 2. DKA. Constant plan: At this time PT and OT are ongoing. Safety concerns noted. Have discussed inpatient rehab with patient and she seems agreeable. We'll add speech therapy.
[2020-05-02 07:25] LABS: Glucose,Whole Blood 75 mg/dL (75-99)
[2020-05-02] MEDS: PANTOPRAZOLE 40 MG TABLET PO SCH (07:31)
[2020-05-02] MEDS: MIDODRINE 5 MG TAB PO SCH ×3 (07:31→16:49)
[2020-05-02] MEDS: SODIUM BICARBONATE TAB 650 MG TAB PO SCH (07:31)
[2020-05-02] MEDS: ENOXAPARIN 30 MG/0.3 ML SYRINGE SQ SCH (07:32)
[2020-05-02 08:12] LABS: Calcium 8.1 mg/dL (8.4-10.2); Potassium 3.2 mmol/L (3.5-5.1)
[2020-05-02 08:22] LABS: HCT 33.6 % (34.0-46.0); HGB 11.2 gm/dL (11.4-16.0); MCH 33.2 pg (25.0-35.0); MCHC 33.5 g/dL (31.0-37.0); MCV 99.1 fL (80.0-100.0); Mean Platelet Volume 8.5; RBC 3.39 m/uL (3.80-5.40); RDW 13.7 % (11.5-15.5)
[2020-05-02 08:27] LABS: Platelet Count 194 k/uL (150-450)
[2020-05-02 08:38] LABS: Magnesium 1.7 mg/dL (1.6-2.3); Phosphorus 6.3 mg/dL (2.5-4.5)
[2020-05-02] MEDS: PIPERACILLIN-TAZOBACTAM 3.375 GM in SODIUM CHLORIDE 0.9% 100 ML IVPB SCH (08:59)
[2020-05-02] MEDS ORDERED: Potassium Replacement Protocol 1 EACH MISC MISCELLANE PRN (09:14)
[2020-05-02] MEDS: POTASSIUM CHLORIDE ER 20 MEQ TAB.ER PO SCH ×2 (10:35→11:47)
[2020-05-02] MEDS: MAG HYDROX/AL HYDROX/SIMETH 30 ML, LIDOCAINE VISCOUS 30 ML, diphenhydrAMINE ELIXIR 75 M... PO SCH ×12 (11:48→20:14)
[2020-05-02 11:56] LABS: Glucose,Whole Blood 207 mg/dL (75-99)
[2020-05-02] MEDS: NYSTATIN 100,000 UNIT/ML SUSP 500,000 UNIT/5 ML CUP PO SCH ×3 (14:10→20:13)
--- NOTE | 2020-05-02 14:22 | P.PN ---
Subjective Progress Note Date: 05/02/20 Principal diagnosis: Pneumonia, diabetic ketoacidosis 40-year-old female patient with past history of diabetes mellitus type 1, who was brought into the hospital on 04/25/2020 per EMS for evaluation of altered mental status. The patient is a schoolteacher, she lives by herself, and there were 2 snow days related to the weather. Today patient did not show up for work and the patient's family had not heard from the patient for 2 days and that when they went over to check on her patient was only responsive to painful stimuli and was just moaning and groaning. She was bradycardic when EMS arrived with heart rate in the 40s. There was no evidence of any traumatic injury. Blood sugar was checked at the scene and was too high for a read on the glucometer and patient was very cold. Blood pressure was within normal limits. Patient was extremely hypothermic, she had possibly been in bed for the last 48 hours. Blood gas was obtained in the emergency department showing pH of less than 6.8, pCO2 of 20, pO2 of greater than 400, and bicarbonate concentration of 2 this was done on FiO2 100%. BMP revealed potassium of 8, bicarbonate concentration of less than 5, glucose was 1234, BUN was 51 and creatinine was 4.05. Urinalysis showed 4+ glucose, 2+ proteins, 2+ ketones, serum acetone was positive. White blood cell count was 15.7, hemoglobin is 14.8, hematocrit was 51.2, with MCV of 117, and marked macrocytosis. Coronavirus PCR was negative. Patient was given a total of 4 L in fluid boluses, was started on insulin infusion per DKA protocol, she received 1 amp of sodium bicarbonate and was started on D5 half-normal saline with 3 A of bicarb at 200 ML per hour. Patient was intubated and placed on mechanical ventilator. Current vent settings are assist control mode of ventilation with a rate of 20, tidal lines 450, FiO2 of 40% and PEEP of 5. Brain CT showed no acute intracranial process. Chest x-ray showed mild interstitial prominence, no consolidation or pleural effusion, ET tube was noted to be 1.9 cm from the hany. NG-tube was inserted and was noted to be above the GE junction with the recommendation to advanced at 6 cm further into the stoma ch. Patient was hypothermic with a temp of 84.6 on arrival, hypotensive, she is receiving fluid boluses. She continues on bicarbonate drip at 200 ML per hour, however her blood pressure is still low in the 80s over 40s, patient is not on any sedation, she is unresponsive. Her temperature has improved, last rectal temp is 98.6F. Recheck blood work was obtained showing potassium of 4.3, sodium is 137, bicarbonate concentration is less than 5, BUN is 50, creatinine is 3.32, GFR is 17, glucose is 903, blood gas showed pO2 of 212, pCO2 of 17, and pH of 6.88. Patient was reevaluated today on 04/26/2020, patient remains in the ICU, intubated and mechanically ventilated. Her ventilator settings are assist control rate of 24 FiO2 is 30% tidal volume is 450 and PEEP is 5. ABG showed a pO2 of 119 pCO2 of 29 pH of 7.32. Bicarb is 14, anion gap is 12. Blood sugar remains in the 500 range. Patient remains on propofol at 15 mcg/kg/m, discontinued her bicarb drip, remains on insulin at 14.5 units per hour. Patient is now hemodynamically stable, required norepinephrine and vasopressin yesterday and she received significant amount of fluids almost over 7 L. Her low blood pressure seems to be mostly related to propofol, when the patient was taken off propofol this morning, her blood pressure was as high as 160s systolic. As soon as she was placed back on propofol, there was clearly evidence of drop in her blood pressure. Off propofol, patient was restless and agitated, thrashing in bed, would not follow any instructions, and clearly based on her overall clinical status, she is not ready to be weaned, hence I recommended just goes back on propofol. CBC is relatively normal. Potassium remains low at 2.7, patient is receiving significant amount of potassium for replacement. Renal profile is abnormal with a BUN of 59 and creatinine of 3.62 chest x-ray is relatively unremarkable. Patient was reevaluated today on 04/27/2020, remains in the ICU, intubated and mechanically ventilated. Patient remains on assist control mode of mechanical ventilation, rate is 24, tidal volume is 450 FiO2 is 30%, and PEEP is 5. ABG showed a pO2 of 125 pCO2 of 29 pH of 7.46. Patient remains on propofol at 40 mcg/kg/m, remains on norepinephrine at 0.08 mcg/kg/m, requirement seems to be higher and the propofol dose is increased. She is on insulin at 5.6 units per hour, her sugars are running in the range of 160, and I recommended stopping her 0.9 normal saline, and went to D5 45 at 150 ML per hour, and we will get the insulin dose down and likely discontinue and eventually transitioned to subcu insulin and Lantus insulin. Her renal functioning however is quite concerning, she continues to have elevated creatinine and I requested a nephrology consultation on this patient. I am not certain whether this is an acute kidney injury or chronic kidney injury or both, patient may have had chronic kidney injury related to her ongoing diabetes./Diabetic nephropathy. Today I have held her propofol, and I plan to give the patient a trial of pressure support and CPAP when she is awake, and if she does well I will likely extubate the patient. I did recommend more fluids to be given hopefully will get rid of norepinephrine today. Urine output is good however she required Lasix yesterday because it dropped down significantly in spite of significant amount of fluids given since admission probably over 8 L however the urine output improved with Lasix. And she continues to have almost 50 mL per hour. CBC today is relatively normal. Electrolytes are normal, bicarb is up to 20, and her anion gap is 8/corrected. BUN is 65 creatinine 4.51. Admission creatinine was 4.05. Cortisol level was 47. Phosphorus is being corrected as per protocol, was as low as 0.5 yesterday, it is 1.3 today 04/28/2020 I'm seeing the patient for a follow-up in the intensive care unit. Note that this patient is 40, diabetic and she came with DKA and severe anion gap metabolic acidosis, she was hypotensive and she required intubation mechanical ventilation during the process and the patient was treated regarding her DKA. She also had an acute kidney injury. She also had to be intubated and placed on mechanical ventilator in the sputum was showing strep group B covered with IV Zosyn. This morning, the patient is extubated and she is on room air oxygen. She is awake and alert and following commands and answering questions. Extubation was done yesterday morning after the patient was given a spontaneous breathing trial which she was able to tolerate and subsequently she was ext ubated. She is currently on IV fluids with half-normal saline at the rate of 125 mL an hour. She is currently off the insulin drip. The most recent blood sugar from this morning is running at 72. Blood work, the patient's has a serum bicarb of 18 and his sodium is at 146 with a chloride of 121 and anion gap is at 7. The morning blood sugar from the lab was 69. Nevertheless, the patient developed an acute kidney injury in the creatinine is up to 5.4 this morning. Her urine output is in order of is an hour. Her dynamically, she still requiring pressors and the patient is currently on levo fed running at 0.05 mcg/kg per minute. This is needed to maintain a mean arterial pressure above 65. Chest x-ray from today shows lower lobe pulmonary infiltrates worse on the left and there is interval removal of the orotracheal tube. Neurologically, she was encephalopathic and had neurologic function is improved considerably and she is awake and alert and following commands and answering questions. She was seen by nephrology yesterday and adjusted acute kidney injury and the patient was seen by Dr. Spaulding and based on assessment acute kidney injury is probably related to hypovolemia an ATN induced at a time of her DKA. On 04/29/2020 patient seen in follow-up in the intensive care unit, she opens eyes to voice, her voice is hoarse, she is very weak, no signs of any respiratory distress, she does have a harsh reductive cough, she is bringing up some clear to white phlegm. She is oriented 2, she knew she was in the hospital at [facility], she thought it was May, but knew the correct year. She is answering questions appropriate, she is a bit sleepy. She states her PCP is Dr. García, and apparently she does see a diabetic specialist Dr. Ferguson for her diabetes care. She states that she had been compliant with her insulin. The patient required intubation and mechanical ventilator support for several days for community acquired pneumonia, and her sputum cultures positive for group B strep, blood cultures have been negative, patient is on Zosyn. She is also on half-normal saline with 1 amp of bicarbonate at a rate of 125 ML, no vasopressors, she has been running a low-grade fever, with a temp of 99.3F. She is tolerating oral diet, no nausea vomiting. Today's lab work has been reviewed, showing white blood cell, 6.3, hemoglobin is 10, renal profile continues to worsen, BUN is 76, creatinine is 5.89, and nephrology is following. Abdominal ultrasound of the kidneys and bladder revealed no evidence of hydronephrosis, no nephrolithiasis no masses. Last chest x-ray was yesterday showing basilar infiltrates and small left-sided pleural effusion. She is producing urine in the order of 40-75 ML per hour. She is mildly generally swollen. On 04/30/2020 patient seen in follow-up in the intensive care unit, she is breathing comfortably, she is on room air, pulse ox is 94-98%, she's been afebrile, hemodynamically she is stable, she is on 0.45 with 1 amp of bicarbonate at a rate of 125 ML per hour, her oral intake has remained limited because of her sore throat. She is on full liquid diet right now, and her appetite has been poor. Her affect is quite flat and at times patient refuses to participate with physical therapy. She seems depressed. She is answering questions appropriately, she denies any shortness of breath, she has a productive cough, phlegm is thin and clear at times quite. No hemoptysis, no new chest x-ray today. Indwelling catheter remains in place, patient has been producing 5225 ML in urine output in the last 24 hours, renal profile continues to be impaired, relatively stable compared to yesterday, BUN is 87, creatinine is 5.84, potassium is 4, CO2 remains low at 18, sodium is 140. appears to be generally swollen with the edema in her upper and lower extremities. White blood cell count today is 3.7, hemoglobin is 11, platelet count is 83, patient has been on subcutaneous heparin for DVT prophylaxis which we will discontinue and put the patient on Lovenox with renal adjustment. Small amount of liquid stool, C. diff was negative, patient continues on Zosyn, for evidence of group B strep pneumonia. On 05/01/2020 patient seen in follow-up in the intensive care unit. Her affect seems to be a little bit more animated today, she denies any acute distress, her sore throat is improving, and her diet has been upgraded to consistent carbohydrate diet and her appetite is improving. Denies any shortness of breath, still has a harsh congested cough, lung sounds are positive for a few scattered rhonchi. Patient is producing some clear phlegm. She continues on antibiotics for group B strep pneumonia. Her labs today show white blood cell count of 3.1, hemoglobin of 10.1, sodium is 139, potassium 3.9, chloride is 111, CO2 is 19, BUN is 88, creatinine is 5.56 relatively stable renal profile. Leos catheter has remained in place, patient is producing urine, however she is again in pos itive fluid balance of 2.1 L over the last 24 hours, and overall she is almost 20 kg positive since admission. She appears generally swollen, nonpitting edema in upper and lower extremities, skin is tight and swollen on bilateral lower extremities. Abdomen is soft, no nausea vomiting or diarrhea, tolerating oral intake. Yesterday patient worked with physical therapy, and was able to walk to the bathroom with assistance. She is in sinus mechanism on the monitor, blood pressure has been stable, she remains on half-normal saline 1 amp of bicarb and rate of 70 ML per hour, she is also receiving oral bicarbonate On 05/02/2020 patient seen in follow-up on medical floor, she is resting in bed, she is currently on room air, breathing comfortably, no complaint of chest pain, still has coarse breath sounds but overall much better compared to last few days. Pulse ox is 96% on room air, vital signs have been stable, no fever or chills, she has occasional cough, which sounds congested she is bringing up small amount of clear phlegm. No hemoptysis. Voice is hoarse, and her throat is sore, she is getting Gurinder's solution. Tolerating oral intake, she's had no nausea vomiting or diarrhea, she's been voiding, IV bolus have been hep-locked, patient is receiving oral bicarbonate tablets, she remains on IV Rocephin for group B strep pneumonia. These labs have been reviewed, renal profile slightly improved, BUN is 78 creatinine is 5.36, potassium is 3.2, chloride is 109, CO2 is 19, white blood cell count is 5 creatinine is 1.2. Patient generally remains weak, she was evaluated for inpatient rehab and was accepted Objective - Vital Signs Vital signs: Vital Signs Temp 97.6 F 05/02/20 07:21 Pulse 81 05/02/20 07:21 Resp 18 05/02/20 07:21 BP 108/72 05/02/20 07:21 Pulse Ox 96 05/02/20 07:21 Intake & Output 05/01/20 05/02/20 05/02/20 18:59 06:59 18:59 Intake Total 900 Output Total 1150 1340 Balance -250 -1340 Weight 83.2 kg Intake: Oral 900 Output: Urine 1150 1340 Other: Voiding Method Indwelling Catheter Indwelling Catheter Indwelling Catheter # Bowel Movements 3 ABP, PAP, CO, CI - Last Documented Arterial Blood Pressure 98/80 - Exam GENERAL EXAM: Awake, 40-year-old white female, oriented 3, has a flat affect, on, room air with a pulse ox of 97% comfortable in no apparent distress. Patient has abrasions in the corners of her mouth from ET tube tie HEAD: Normocephalic/atraumatic. EYES: Normal reaction of pupils, equal size. Conjunctiva pink, sclera white. NOSE: Clear with pink turbinates. THROAT: No erythema or exudates. NECK: No masses, no JVD, no thyroid enlargement, no adenopathy. CHEST: No chest wall deformity. Symmetrical expansion. LUNGS: Equal air entry with basilar crackles, diminished breath sounds at the bases CVS: Regular rate and rhythm, normal S1 and S2, no gallops, no murmurs, no rubs ABDOMEN: Soft, nontender. No hepatosplenomegaly, normal bowel sounds, no guarding or rigidity. EXTREMITIES: No clubbing, Gen. edema, and edema involving upper and lower extremities noted, no cyanosis, 2+ pulses and upper and lower extremities. MUSCULOSKELETAL: Muscle strength and tone normal. SPINE: No scoliosis or deformity SKIN: No rashes CENTRAL NERVOUS SYSTEM: Alert and oriented -3. No focal deficits, tone is normal in all 4 extremities. PSYCHIATRIC: Alert and oriented -3. Appropriate affect. Intact judgment and insight. - Labs CBC & Chem 7: 05/02/20 07:27 05/02/20 07:27 Labs: Abnormal Lab Results - Last 24 Hours (Table) 05/01/20 05/01/20 05/01/20 Range/Units 16:49 19:58 22:13 RBC (3.80-5.40) m/uL Hgb (11.4-16.0) gm/dL Hct (34.0-46.0) % Potassium (3.5-5.1) mmol/L Chloride (98-107) mmol/L Carbon Dioxide (22-30) mmol/L BUN (7-17) mg/dL Creatinine (0.52-1.04) mg/dL POC Glucose (mg/dL) 179 H 204 H 178 H (75-99) mg/dL Calcium (8.4-10.2) mg/dL Phosphorus (2.5-4.5) mg/dL 05/02/20 05/02/20 05/02/20 Range/Units 06:48 07:03 07:27 RBC 3.39 L (3.80-5.40) m/uL Hgb 11.2 L (11.4-16.0) gm/dL Hct 33.6 L (34.0-46.0) % Potassium (3.5-5.1) mmol/L Chloride (98-107) mmol/L Carbon Dioxide (22-30) mmol/L BUN (7-17) mg/dL Creatinine (0.52-1.04) mg/dL POC Glucose (mg/dL) 44 L 45 L (75-99) mg/dL Calcium (8.4-10.2) mg/dL Phosphorus (2.5-4.5) mg/dL 05/02/20 05/02/20 Range/Units 07:27 11:54 RBC (3.80-5.40) m/uL Hgb (11.4-16.0) gm/dL Hct (34.0-46.0) % Potassium 3.2 L (3.5-5.1) mmol/L Chloride 109 H (98-107) mmol/L Carbon Dioxide 19 L (22-30) mmol/L BUN 78 H (7-17) mg/dL Creatinine 5.36 H (0.52-1.04) mg/dL POC Glucose (mg/dL) 207 H (75-99) mg/dL Calcium 8.1 L (8.4-10.2) mg/dL Phosphorus 6.3 H (2.5-4.5) mg/dL Microbiology - Last 24 Hours (Table) 04/25/20 14:44 Blood Culture - Final Blood No Growth after 144 hours Assessment and Plan Plan: Assessment: #1. Acute diabetic ketoacidosis, recovered #2. Bilateral lower lobe pulmonary infiltrates related to community acquired pneumonia, sputum culture positive for group B strep, patient is currently on Zosyn #3. Profound metabolic acidosis related to the above, improved #4. Altered mental status, related to metabolic encephalopathy, brain CT showed no acute abnormalities, improved, patient has been awake, and following commands and responding appropriately #5. Multiple electrolyte abnormalities, including hyperkalemia, hyponatremia, acidemia related to acute DKA, improved #6. Acute kidney injury, secondary to hypotension, acute tubular necrosis and hypovolemia #7. Hypotension, hypovolemic shock related to severe dehydration, rule out possibility of septic shock #8. Diabetes mellitus type 1, takes Toujeo insulin on a regular basis #9. 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 Lifetime nonsmoker Plan: Vital signs have been stable overnight, patient is making good urine output, she is in negative fluid balance, generalized edema is improving, she remains on room air, no worsening dyspnea she continues on antibiotics for group B strep pneumonia. No worsening dyspnea hypoxemia, increase activity as tolerated, patient has been accepted for inpatient rehab. Patient will need outpatient follow-up with Dr. Nelson in the office in 7-[address] Nelson can see the patient at the inpatient rehab for any pulmonary or critical care needs the [facility]. I performed a history & physical examination of the patient and discussed their management with my nurse practitioner, Bettina Heath. I reviewed the nurse practitioner's note and agree with the documented findings and plan of care. Lung sounds are positive for diminished breath sounds. The findings and the impression was discussed with the patient. I attest to the documentation by the nurse practitioner. Time with Patient: Less than 30
--- NOTE | 2020-05-02 14:44 | P.PN ---
Subjective Progress Note Date: 05/02/20 40-year-old female with known diabetic found unresponsive. Patient talked to the family members on Wednesday night after that the patient never responded to texts, family found her unresponsive in her own bed. Patient is found to be severely hypothermic bradycardic severely acidotic with pH of 6.5 with highly elevated blood sugar of 1200. And has to be intubated for protection of airway. Patient is presently on set up respiratory rate of 24 because of severe metabolic acidosis patient was started on IV insulin presently in normal saline and was to half-normal 7 because of hyperchloremia patient is also on bicarbonate drip along with norepinephrine and around the 13 g. Patient has a severe electrolyte abnormalities patient also had respiratory acidosis. Patient has highly elevated potassium patient received the calcium gluconate presently receiving bicarbonate and is also on IV insulin and this potassium potassium has come down now. 04/26/2020 Patient remains intubated had had a metabolic acidosis significantly improved patient pCO2 is a 29 pH is 7.39. Patient is on basic when setting send a set up respiratory of 24 at this time. We will wean off her sedation. Patient is presently unresponsive because of sedation. Patient's nystagmus improved. Patient is presently on around the 6-7 mcg/h of norepinephrine. Patient is also on very low dose of vasopressin the stool will be weaned off. Patient the DKA resolved but blood sugars remained high because of the D5 which she is receiving for bicarbonate drip which will be discontinued at this time patient will be continued on half-normal saline with insulin was a blood sugars come down to 300 also check to long-acting insulin dose will be decided depending on if patient will receive nutrition are not today. Patient will also be on sliding scale and additionally on pre-meal insulin as well. Patient's phosphorus is extremely low which will be replaced. Anion gap improved to 12 but the patient's bicarbonate is only 14 this is because of hyperchloremia. 04/27/2020 Patient is extubated today patient is waking up, still barely responsive to verbal still alive. Patient chest x-ray showing bilateral infiltrates and leukocytosis because patient was started on empiric empiric Zosyn for possible aspiration pneumonia. Patient's anion gap resolved yesterday patient still on D5 half-normal saline with insulin which will be transitioned to subcutaneous insulin whenever she needs then patient will be started on pre-meal insulin until then patient will be on every 6 hourly sliding scale. Patient will be continued and transitioned to half-normal saline. Will not require any potassium supplementation at this time patient creatinine still high nephrology was consulted. Creatinine is actually worse to 4.5 and patient's personal for being discontinued at this time. Patient does have urine output 04/28/2020 Patient is a more awake today and able to answer questions although patient does have some hoarseness of voice probably because of intubation. Patient looks tired week and appropriately answering questions. Patient kidney function continued to get worse has urine output around 30 mL per hour. Patient probably has acute tubular necrosis secondary to severe hypotension patient remains on Zosyn for possible aspiration pneumonia with bilateral lower lobes infiltrate patient is off insulin drip and patient is on 30 units of insulin patient was nothing by mouth until today morning pass a swallow evaluation patient will be continued on same 30 units and patient will be switched to 5 units 3 times a day with meals of short-acting insulin along with sliding scale insulin. Patient morning blood sugar is around 70 but patient was nothing by mouth. Physical therapy occupational therapy will evaluate the patient patient can use to be on norepinephrine at 0.05 mics per Gram per minute patient blood pressure is in 90s systolic with mean arterial pressure of around 65 04/29/2020 Patient is sitting in the chair still quite a bit week patient is on 30 units of long-acting insulin along with sliding scale with each meal blood sugars are well controlled creatinine continued to get worse. On dialysis for now patient is having urine output. 04/30/2020 and patient is clinically doing well at this time patient started having urine output creatinine stabilized a bit better today may not require any hemodialysis. Patient is quite weak related to go to subacute rehabilitation patient will transfer out of ICU. 04/30/2020 Patient has marginal improvement in serum creatinine does have urine output. Hopefully will not require any dialysis 05/01/2020 Blood sugars are bit elevated patient will be started on pre-meal insulin patient has been very hemolytic streptococci in the sputum. Zosyn will be discontinued and patient was started on Rocephin. Patient has some, although marginal improvement in symptom creatinine does have urine output patient will be continued to monitor for any need for hemodialysis patient will need to be discharged to subacute rehabilitation 05/02/2020 Patient is seen and evaluated this morning continues to be quite weak and is working with PT/OT therapy. Patient underwent modified swallow study at the bedside and diet has been adjusted. Patient has extreme discomfort and sensitivity of her mouth and throat and on exam is noted to be red with white patches noted. Will start nystatin oral along with cool solution. Multiple medical consultations following including nephrology and patient will be receivi ng a temporary catheter placement to start hemodialysis. Authorization has been submitted by social work as the patient will be going to inpatient rehab at [facility] if authorization is obtained. Sodium is 141, potassium is 3.2 and being replaced, BUN is 78 and creatinine is 5.36. Sugars have been on the lower side and will continue with sliding scale and long-acting and continue to monitor Ac cu-Cheks before meals and at bedtime. Patient is maintained on IV antibiotics in the form of ceftriaxone and sputum culture is showing group B strep and awaiting finalization. Constitutional: Denied any fatigue denied any fever. Cardio vascular: denied any chest pain, palpitations Gastrointestinal denied any nausea vomiting, reports extreme mouth discomfort Pulmonary: Denied any shortness of breath cough Neurologic denied any new focal deficits All inpatient medications were reviewed and appropriate changes in these medications as dictated in the interval history and assessment and plan. Objective - Vital Signs Vital signs: Vital Signs Temp 98.5 F 05/02/20 02:00 Pulse 78 05/02/20 02:00 Resp 18 05/02/20 02:00 BP 115/75 05/02/20 02:00 Pulse Ox 95 05/02/20 02:00 Intake & Output 05/01/20 05/02/20 05/02/20 18:59 06:59 18:59 Intake Total 900 Output Total 1150 1340 Balance -250 -1340 Weight 83.2 kg Intake: Oral 900 Output: Urine 1150 1340 Other: Voiding Method Indwelling Catheter Indwelling Catheter Indwelling Catheter # Bowel Movements 3 ABP, PAP, CO, CI - Last Documented Arterial Blood Pressure 98/80 - Exam GENERAL: Patient is recently extubated alert and oriented x 3 but quite weak, hoarse voice HEENT: Pupils are round and equally reacting to light. EOMI. No scleral icterus. No conjunctival pallor. Normocephalic, atraumatic. No thyromegaly. Scab and noted to right side of mouth status post intubation with no surrounding swelling or redness, oral pharynx is erythematous with some white patchiness noted CARDIOVASCULAR: S1 and S2 present. No murmurs, rubs, or gallops. PULMONARY: Chest is clear to auscultation, no wheezing or crackles. ABDOMEN: Soft, nontender, nondistended, normoactive bowel sounds. No palpable organomegaly. MUSCULOSKELETAL: No joint swelling or deformity. EXTREMITIES: No cyanosis, clubbing, or pedal edema. NEUROLOGICAL: Generalized weakness doesn't appear to have any focal deficits SKIN: Patient does have some bruises and deep discoloration of the skin because of laying on the bed at home. - Labs CBC & Chem 7: 05/02/20 07:27 05/02/20 07:27 Labs: Abnormal Lab Results - Last 24 Hours (Table) 05/01/20 05/01/20 05/01/20 Range/Units 11:40 16:49 19:58 RBC (3.80-5.40) m/uL Hgb (11.4-16.0) gm/dL Hct (34.0-46.0) % Potassium (3.5-5.1) mmol/L Chloride (98-107) mmol/L Carbon Dioxide (22-30) mmol/L BUN (7-17) mg/dL Creatinine (0.52-1.04) mg/dL POC Glucose (mg/dL) 189 H 179 H 204 H (75-99) mg/dL Calcium (8.4-10.2) mg/dL Phosphorus (2.5-4.5) mg/dL 05/01/20 05/02/20 05/02/20 Range/Units 22:13 06:48 07:03 RBC (3.80-5.40) m/uL Hgb (11.4-16.0) gm/dL Hct (34.0-46.0) % Potassium (3.5-5.1) mmol/L Chloride (98-107) mmol/L Carbon Dioxide (22-30) mmol/L BUN (7-17) mg/dL Creatinine (0.52-1.04) mg/dL POC Glucose (mg/dL) 178 H 44 L 45 L (75-99) mg/dL Calcium (8.4-10.2) mg/dL Phosphorus (2.5-4.5) mg/dL 05/02/20 05/02/20 Range/Units 07:27 07:27 RBC 3.39 L (3.80-5.40) m/uL Hgb 11.2 L (11.4-16.0) gm/dL Hct 33.6 L (34.0-46.0) % Potassium 3.2 L (3.5-5.1) mmol/L Chloride 109 H (98-107) mmol/L Carbon Dioxide 19 L (22-30) mmol/L BUN 78 H (7-17) mg/dL Creatinine 5.36 H (0.52-1.04) mg/dL POC Glucose (mg/dL) (75-99) mg/dL Calcium 8.1 L (8.4-10.2) mg/dL Phosphorus 6.3 H (2.5-4.5) mg/dL Microbiology - Last 24 Hours (Table) 04/25/20 14:44 Blood Culture - Final Blood No Growth after 144 hours Assessment and Plan Assessment: -Profound metabolic acidosis: Resolved now Secondary to diabetic ketoacidosis and lactic acidosis and hyperkalemia. Patient is extubated on 04/27/2020. . Patient remains acidotic because of uremia renal failure and hyperchloremia -acute respiratory failure secondary to hypovolemic shock, diabetic ketoacidosis presently extubated-respiratory failure improved -Altered mental status, unresponsive state: Patient has respiratory failure secondary to this, recently extubated, improved -Pneumonia with the strep agalactiae group B aspiration pneumonia patient will be switched to Rocephin and Zosyn will be discontinued -Acute kidney injury: Most probably secondary to acute tubular necrosis from severe hypotension along with prerenal azotemia. Patient is having urine output although creatinine is slow to improve and Dr. Hayden consulted for temporary catheter placement and nephrology is initiating hemodialysis -Hypovolemic shock: Secondary to severe intravascular volume depletion, patient is presently off pressor support -Type 1 diabetes mellitus: Insulin management as mentioned above. Patient's hemoglobin A1c is highly elevated probably poor compliance -Leukocytosis mostly reactive in nature -Pseudohyponatremia improved with IV fluids, -Hypothermia: Secondary to hypovolemic shock, improved -DVT prophylaxis with the heparin. GI prophylaxis with Protonix plan: Continue with current medications. Dr. Hayden consulted for temporary dialysis catheter placement as nephrology will be starting hemodialysis. Social work also following and submitted authorization for patient to go to inpatient rehab at [facility]. She is working with PT/OT therapy and continues to be quite weak requiring assistance. Will monitor closely and continue to monitor Accu-Cheks before meals and at bedtime very closely and will titrate insulin as needed.
[2020-05-02] MEDS ORDERED: MIDAZOLAM 2 MG/2 ML VIAL IV ONE (15:16)
[2020-05-02] MEDS ORDERED: LIDOCAINE 1% INJ 10MG/ML (20 ML MDV) SQ ONE (15:16)
[2020-05-02] MEDS ORDERED: IV FLUID CONTINUATION 400 ML IV ONE (15:19)
--- NOTE | 2020-05-02 16:02 | PN ---
PROGRESS NOTE Patient is seen for followup for acute kidney injury. This morning patient is sitting up in bed. Her general condition is about the same. Complaining of feeling tired. No significant nausea or vomiting. She has had good urine output. Serum creatinine is about the same as yesterday. I have discussed with her regarding starting dialysis, given the fact that there is not much improvement in the creatinine in the last 2 to 3 days, although the number is slightly lower than yesterday. The patient is agreeable. We will proceed with a couple of treatments, which will help her get over the hump and increase oral intake and help with edema as well. PHYSICAL EXAMINATION: On examination today, blood pressure was 108/72, heart rate 81 per minute. She is afebrile. EXAMINATION OF THE HEART: S1 and S2. EXAMINATION OF LUNGS: Bilateral breath sounds are heard. Decreased breath sounds at bases. ABDOMEN: Soft, non-tender. Examination of lower extremities shows edema 1+ bilaterally, upper and lower extremities. NEGATIVE CHECKER exam shows no asterixis. No motor deficits noted. LABS: Serum creatinine was 5.36, sodium 141, potassium 4.2, chloride 109. CO2 is 19, BUN of 78, hemoglobin 11.2 g/dL, phosphorus 6.3. ASSESSMENT: 1. Acute kidney injury, acute tubular necrosis, secondary to hypotension, sepsis, currently nonoliguric and improving. However, given the weakness and no further improvement over the last couple of days and serum creatinine staying at about 5, I will proceed with a couple of treatments of dialysis. Patient is agreeable. 2. Hypokalemia. We will replace cautiously. 3. Sepsis from pneumonia. Sputum culture grew group B Streptococcus. 4. Severe diabetic ketoacidosis, now resolved. PLAN: Consult Vascular Surgery for dialysis catheter placement. We will plan for first treatment tomorrow unless creatinine is significantly improved. I will hold off on the sodium bicarb for now and repeat labs early a.m. MMODL / IJN: [id number] /
[2020-05-02 16:37] LABS: Glucose,Whole Blood 185 mg/dL (75-99)
--- NOTE | 2020-05-02 17:24 | PCN ---
PROCEDURE NOTE PREOPERATIVE DIAGNOSIS: Acute chronic renal failure. POSTOPERATIVE DIAGNOSIS: Acute chronic renal failure. PROCEDURE: Placement of dialysis catheter, right femoral approach. PROCEDURE DESCRIPTION: The patient was seen in the laborer beam house. Right groin was prepped and draped in usual sterile manner. Lidocaine 1% was infiltrated in the right groin. Ultrasound-guided micropuncture was introduced in the right femoral vein. Micropuncture guidewire was passed and a 4-Malay dilator was advanced on top of the guidewire. After that we placed a dilator on the top of the guidewire under fluoroscopic control. Then the dialysis catheter was advanced on the top of the guidewire. There was good venous return noted. Flushed with heparin, saline and hep-locked and secured with 3-0 nylon. Dressing was applied. Patient tolerated the procedure well and was transferred to the recovery room in satisfactory condition. RADHA / ARJUN: [id number] /
[2020-05-02 20:08] LABS: Glucose,Whole Blood 259 mg/dL (75-99)
[2020-05-02] MEDS ORDERED: INSULIN DETEMIR (LEVEMIR) 100 UNIT/ML SYR SQ SCH (21:00)
[2020-05-03 00:25] LABS: Glucose,Whole Blood 240 mg/dL (75-99)
[2020-05-03] MEDS ORDERED: ONDANSETRON 4 MG/2 ML VIAL IVP PRN (00:45)
[2020-05-03 06:42] LABS: Basophils % (A) 1 %; Eosinophils # (A) 0.1 k/uL (0-0.7); Eosinophils % (A) 2 %; HCT 34.7 % (34.0-46.0); HGB 11.4 gm/dL (11.4-16.0); Lymphocytes # (A) 1.4 k/uL (1.0-4.8); Lymphocytes % (A) 26 %; MCH 33.1 pg (25.0-35.0); MCHC 32.7 g/dL (31.0-37.0); MCV 101.1 fL (80.0-100.0); Macrocytosis Slight; Mean Platelet Volume 8.3; Monocytes # (A) 0.5 k/uL (0-1.0); Monocytes % (A) 8 %; Neutrophils # (A) 3.3 k/uL (1.3-7.7); Neutrophils % (A) 60 %; Platelet Count 233 k/uL (150-450); RBC 3.44 m/uL (3.80-5.40); RDW 13.4 % (11.5-15.5); WBC 5.4 k/uL (3.8-10.6)
[2020-05-03 06:52] LABS: Glucose,Whole Blood 299 mg/dL (75-99)
[2020-05-03 06:54] LABS: ALT 39 U/L (4-34); AST 29 U/L (14-36); African American GFR (CKD) 12 (>60 ml/min/1.73 sqM); Albumin 2.7 g/dL (3.5-5.0); Albumin/Globulin Ratio 1.1; Alkaline Phosphatase 104 U/L (38-126); Anion Gap 14 mmol/L; Blood Urea Nitrogen 66 mg/dL (7-17); Calcium 8.3 mg/dL (8.4-10.2); Carbon Dioxide 17 mmol/L (22-30); Chloride 108 mmol/L (98-107); Globulin 2.4 g/dL; Glucose 320 mg/dL (74-99); Non-African American GFR(CKD) 10 (>60 ml/min/1.73 sqM); Potassium 4.4 mmol/L (3.5-5.1); Sodium 139 mmol/L (137-145); Total Bilirubin 0.5 mg/dL (0.2-1.3); Total Protein 5.1 g/dL (6.3-8.2)
[2020-05-03] MEDS: INSULIN ASPART (NovoLOG) 100 UNIT/ML VIAL SQ SCH ×4 (07:29→12:15)
[2020-05-03] MEDS: NYSTATIN 100,000 UNIT/ML SUSP 500,000 UNIT/5 ML CUP PO SCH ×2 (07:30→12:50)
[2020-05-03] MEDS: ENOXAPARIN 30 MG/0.3 ML SYRINGE SQ SCH (07:31)
[2020-05-03] MEDS: PANTOPRAZOLE 40 MG TABLET PO SCH (07:31)
[2020-05-03] MEDS: MIDODRINE 5 MG TAB PO SCH ×2 (07:31→12:51)
[2020-05-03] MEDS: MAG HYDROX/AL HYDROX/SIMETH 30 ML, LIDOCAINE VISCOUS 30 ML, diphenhydrAMINE ELIXIR 75 M... PO SCH ×8 (07:34→15:52)
[2020-05-03 07:37] VITALS: RESP 17
--- NOTE | 2020-05-03 09:40 | IR ---
EXAMINATION TYPE: IR cvc insert non tunneled DATE OF EXAM: 05/03/2020 COMPARISON: NONE HISTORY: Dialysis Fluoroscopy support supplied to the referring clinician. See dictated report from vascular surgery, 0.1 minutes fluoroscopy time, 62 intraoperative images
[2020-05-03] MEDS ORDERED: FUROSEMIDE 10 MG/ML 10 ML VIAL IV STA (10:42)
[2020-05-03 11:48] LABS: Glucose,Whole Blood 244 mg/dL (75-99)
--- NOTE | 2020-05-03 14:40 | P.DS ---
Providers Date of admission: 04/25/20 12:05 Expected date of discharge: 05/03/20 Attending physician: Meenakshi Carver Consults: 04/25/20 12:05 Consult Physician Stat Consulting Provider: Dwight Zelaya Consult Reason/Comments: Critical care management Do you want consulting provider notified?: Yes 04/27/20 09:04 Consult Physician Routine Consulting Provider: Heather Spaulding Consult Reason/Comments: Renal failure Do you want consulting provider notified?: Yes 05/01/20 15:34 Consult Physician Routine Consulting Provider: Jamir Goldsmith Consult Reason/Comments: Possible IPR Do you want consulting provider notified?: Yes 05/02/20 11:38 Consult Physician Urgent Consulting Provider: Ross Hayden Consult Reason/Comments: temporary dialysis cath Do you want consulting provider notified?: Yes Primary care physician: Mracos Rosas Hospital Course: Final diagnosis -Profound metabolic acidosis: Resolved now Secondary to diabetic ketoacidosis and lactic acidosis and hyperkalemia. Patient is extubated on 04/27/2020 -Oral thrush, most likely from recent intubation -acute respiratory failure secondary to hypovolemic shock, diabetic ketoacidosis presently extubated-respiratory failure improved -Altered mental status, unresponsive state: Patient has respiratory failure secondary to this, recently extubated, improved -Pneumonia with the strep agalactiae group B aspiration pneumonia -Acute kidney injury: Most probably secondary to acute tubular necrosis from severe hypotension along with prerenal azotemia -Hypovolemic shock: Secondary to severe intravascular volume depletion -Type 1 diabetes mellitus -Leukocytosis mostly reactive in nature -Pseudohyponatremia -Hypothermia: Secondary to hypovolemic shock, improved -DVT prophylaxis -GI prophylaxis Discharge disposition Patient is being discharged in a stable condition with guarded prognosis to [facility] rehab. Patient will follow-up with Dr. rosas upon discharge. Patient will continue with a short course of oral antibiotics in the form of Ceftin 500 mg twice daily for the next 3 days along with nystatin swish and swallow . Total time taken is greater than 35 minutes. Hospital course 40-year-old female with known diabetic found unresponsive. Patient talked to the family members on Wednesday night after that the patient never responded to texts, family found her unresponsive in her own bed. Patient is found to be severely hypothermic bradycardic severely acidotic with pH of 6.5 with highly elevated blood sugar of 1200. And has to be intubated for protection of airway. Patient is presently on set up respiratory rate of 24 because of severe metabolic acidosis patient was started on IV insulin presently in normal saline and was to half-normal 7 because of hyperchloremia patient is also on bicarbonate drip along with norepinephrine and around the 13 g. Patient has a severe electrolyte abnormalities patient also had respiratory acidosis. Patient has highly elevated potassium patient received the calcium gluconate presently receiving bicarbonate and is also on IV insulin and this potassium potassium has come down now. 05/03/2020 Patient is seen this morning with no acute overnight issues. Nephrology following closely and will continue at [facility] as patient received a temporary dialysis catheter in the groin with Dr. Hayden yesterday for the possibility of initiating hemodialysis due to kidney injury. Labs have improved this morning and was given a dose of Lasix and holding off on hemodialysis at this point. Patient continues to be weak and has been working with PT/OT therapy and was evaluated by Dr. Goldsmith and will need continued PT/OT therapy for strengthening mobility. Authorization has been obtained and patient will be going to [facility] today. She continues to have mild discomfort with redness and white patches on the back of her throat and was started on nystatin along with oral solution and will continue with this. Patient states she has less mouth pain since the start of the nystatin but is requesting an ENT consult. Will continue to monitor closely in the rehab setting as well. Patient was on ceftriaxone and we'll transition to oral Ceftin 500 mg twice daily for the next 3 days to complete the course. Currently no reports of chest pain, shortness of breath, or palpitations. Patient is afebrile. No reports of nausea or vomiting and patient is tolerating diet. She will be going to [facility] inpatient rehab for continued PT/OT therapy. On exam vital signs are stable. Temp is 97.5F, pulse is 70, respirations are 17, blood pressure is 126/86, oxygen saturation is 97% on room air. Cardio S1, S2 are muffled. Respiratory shows diminished breath sounds at the bases with no wheezing or rhonchi noted. Abdomen is soft and nontender. Nervous system shows mild diffuse weakness. Please refer to medication reconciliation sheet for a list of medications. Patient Condition at Discharge: Stable Plan - Discharge Summary Discharge Rx Participant: No New Discharge Prescriptions: New diphenhydrAMINE ELIXIR [Benadryl Elixir] 75 mg PO TID ml Cefuroxime Axetil [Ceftin] 500 mg PO BID 3 Days #6 tab Insulin Detemir (Levemir) [Levemir] 28 unit SQ HS syr Enoxaparin [Lovenox] 30 mg SQ DAILY syringe Mag Hydrox/Al Hydrox/Simeth [Maalox] 30 ml PO TID ml Nystatin 100,000 Unit/ml Susp [Mycostatin Oral Susp] 500,000 unit PO QID ml Nystatin 100,000 Unit/ml Susp [Mycostatin Oral Susp] 3,000,000 unit PO TID ml INSULIN ASPART (NovoLOG) [NovoLOG (formulary)] 3 unit SQ AC-TID vial INSULIN ASPART (NovoLOG) [NovoLOG (formulary)] 0 unit SQ ACHS vial Midodrine [ProAmatine] 5 mg PO AC-TID tab Pantoprazole [Protonix] 40 mg PO AC-BRKFST tablet. Acetaminophen Tab [Tylenol] 650 mg PO Q6HR PRN tab PRN Reason: Fever And/ Or Pain Lidocaine Viscous [Xylocaine Viscous 2%] 30 ml PO TID ml Discontinued Insulin Glargine,Hum.rec.anlog [Jonesumacario Solostsergio] 40 units SQ HS Discharge Medication List Acetaminophen Tab [Tylenol] 650 mg PO Q6HR PRN tab 05/03/20 [Rx] Cefuroxime Axetil [Ceftin] 500 mg PO BID 3 Days #6 tab 05/03/20 [Rx] Enoxaparin [Lovenox] 30 mg SQ DAILY syringe 05/03/20 [Rx] INSULIN ASPART (NovoLOG) [NovoLOG (formulary)] 0 unit SQ ACHS vial 05/03/20 [Rx] INSULIN ASPART (NovoLOG) [NovoLOG (formulary)] 3 unit SQ AC-TID vial 05/03/20 [Rx] Insulin Detemir (Levemir) [Levemir] 28 unit SQ HS syr 05/03/20 [Rx] Lidocaine Viscous [Xylocaine Viscous 2%] 30 ml PO TID ml 05/03/20 [Rx] Mag Hydrox/Al Hydrox/Simeth [Maalox] 30 ml PO TID ml 05/03/20 [Rx] Midodrine [ProAmatine] 5 mg PO AC-TID tab 05/03/20 [Rx] Nystatin 100,000 Unit/ml Susp [Mycostatin Oral Susp] 3,000,000 unit PO TID ml 05/03/20 [Rx] Nystatin 100,000 Unit/ml Susp [Mycostatin Oral Susp] 500,000 unit PO QID ml 05/03/20 [Rx] Pantoprazole [Protonix] 40 mg PO AC-BRKFST tablet. 05/03/20 [Rx] diphenhydrAMINE ELIXIR [Benadryl Elixir] 75 mg PO TID ml 05/03/20 [Rx] Follow up Appointment(s)/Referral(s): Dwight Zelaya MD [STAFF PHYSICIAN] - 1 Week Marcos Rosas DO [Primary Care Provider] - 1-2 days Activity/Diet/Wound Care/Special Instructions: Patient going to [facility] Inpatient rehab activity as tolerated continue current diet nectar thickened liquids, aspiration precautions, consistent carb, may have free water and ice chips Possible ENT consult outpatient Discharge Disposition: TRANSFER TO SNF/ECF
[2020-05-03 15:50] VITALS: BP 112/74; PULSE 65; TEMP 98.1
--- NOTE | 2020-05-03 18:32 | PN ---
PROGRESS NOTE Patient is seen for followup for acute kidney injury. The patient was admitted to the hospital with DKA, sepsis, hypotension and hypoxic respiratory failure. She had been on the vent. She had pneumonia with sputum culture growing group B strep. The patient had developed severe progressive renal failure and was initially oliguric, but then urine output has picked up. Serum creatinine is slowly decreasing. Yesterday patient complained of increased weakness and nausea and therefore we had decided to proceed with dialysis. She had a femoral catheter placed. However, this morning serum creatinine is further decreased to 4.9, and overall patient states she is feeling better and does not have any further nausea. Therefore the plan is to hold off on dialysis for today and continue to monitor on a daily basis. PHYSICAL EXAMINATION: On examination today, blood pressure was 126/86, heart rate of 78 per minute. She is afebrile. EXAMINATION OF THE HEART: S1 and S2. EXAMINATION OF LUNGS: Bilateral breath sounds are heard. ABDOMEN: Soft, non-tender. Examination of lower extremities shows edema 2+, upper and lower extremities. SERVICE LEARNING COORDINATOR exam is grossly intact. LABS: Sodium 139, potassium 4.4, chloride 108, CO2 17, BUN 66, serum creatinine 4.93, hemoglobin 11.4 g/dL. ASSESSMENT: 1. Acute kidney injury, acute tubular necrosis, currently nonoliguric, slowly improving. A dialysis catheter was placed yesterday and planned for dialysis today; however, patient's creatinine has improved and overall she feels better. Therefore we will hold off on dialysis today and continue to monitor on a daily basis. 2. Volume overload. Add IV Lasix. 3. Generalized debility. 4. Severe diabetic ketoacidosis, now resolved. 5. Pneumonia with sputum culture growing group B streptococcus, status post antibiotics. 6. Severe sepsis from pneumonia, hypotension, associated with the underlying infection. 7. Generalized debility. 8. Metabolic acidosis. PLAN: Reintroduce sodium bicarb, as patient is currently not getting dialyzed. I will give her a dose of Lasix 60 mg x1 IV now. We will add a daily dose. Continue off of IV fluids. Continue to encourage increased oral intake and continue to assess on a daily basis for need for dialysis. I will also continue with the midodrine for now. Repeat labs in a.m. MMODL / IJN: [id number] /
[2020-05-04] MEDS ORDERED: FUROSEMIDE 10 MG/ML 10 ML VIAL IV SCH (09:00)
--- NOTE | 2020-05-06 14:17 | CDI ---
Documentation Clarification Form Date: 05/06/2020 02:11:00 PM From: Francy Peters CCS Admit Date: 04/25/2020 12:05:00 PM Patient Name: Yaquelin Vu Visit Number: [id number] Discharge Date: 05/03/2020 06:02:00 PM ATTENTION: The Clinical Documentation Specialists (CDI) and [facility] Coding Staff appreciate your assistance in clarifying documentation. Please respond to the clarification below the line at the bottom and electronically sign. The CDI & [facility] Coding staff will review the response and follow-up if needed. Please note: Queries are made part of the Legal Health Record. If you have any questions, please contact the author of this message via ITS. Dr. Meenakshi Carver Conflicting documentation has been found in the medical record: PN 04/26-04/27 document: Acute kidney injury, likely secondary to hypotension , acute tubular necrosis, and hypovolemia secondary to profound hyperglycemia.Strongly doubt sepsis. PN 05/02-05/03 document: The patient was admitted to the hospital with DKA, sepsis, hypotension and hypoxic respiratory failure Severe sepsis from pneumonia, hypotension, associated with the underlying infection History/Risk Factors: PNA, DKA, Encephalopathy, ATN, Acute Resp Failure Clinical Indicators: [place], ARF, Elevated WBC Vitals: RR 26, BP 73/32, ME 53, Temp 83.5, O2 Sat 96 Labs: WBC 15.7, 6.2, 12.4 Treatment: Rocephin 1 gm IV, Zosyn 3.375 gm IV In your opinion, what is the most clinically appropriate diagnosis for this patient? Sepsis with related organ failure POA Sepsis ruled out Other explanation of clinical findings Unable to determine (no explanation for clinical findings) Assessment can change since admission and my assessment is as per my recent documentation. Cannot speak her other physicians MTDD
== END 2020-05-03 18:02 | DRG 637 ==
LOC: EC 08:33 → 2SICU 12:05 → 4SSUR 05-02 01:00
PROVIDERS: ADMIT Internal Medicine; ATTEND Internal Medicine
PROC: 0BH17EZ Insertion of Endotracheal Airway into Trachea, Via Natural or Artificial Opening (ICD-10-PCS; principal; 2020-04-25)
PROC: 5A1945Z Respiratory Ventilation, 24-96 Consecutive Hours (ICD-10-PCS; 2020-04-25)
PROC: 0D9670Z Drainage of Stomach with Drainage Device, Via Natural or Artificial Opening (ICD-10-PCS; 2020-04-25)
PROC: 03HY32Z Insertion of Monitoring Device into Upper Artery, Percutaneous Approach (ICD-10-PCS; 2020-04-25)
PROC: 4A133B1 Monitoring of Arterial Pressure, Peripheral, Percutaneous Approach (ICD-10-PCS; 2020-04-25)
PROC: 4A133J1 Monitoring of Arterial Pulse, Peripheral, Percutaneous Approach (ICD-10-PCS; 2020-04-25)
PROC: 3E033XZ Introduction of Vasopressor into Peripheral Vein, Percutaneous Approach (ICD-10-PCS; 2020-04-25)
PROC: 04HK33Z Insertion of Infusion Device into Right Femoral Artery, Percutaneous Approach (ICD-10-PCS; 2020-04-25)
PROC: 06HM33Z Insertion of Infusion Device into Right Femoral Vein, Percutaneous Approach (ICD-10-PCS; 2020-05-02)
DX: E10.10 Type 1 diabetes mellitus with ketoacidosis without coma (principal); N17.0 Acute kidney failure with tubular necrosis; R57.1 Hypovolemic shock; J96.01 Acute respiratory failure with hypoxia; J69.0 Pneumonitis due to inhalation of food and vomit; G93.41 Metabolic encephalopathy; J15.3 Pneumonia due to streptococcus, group B; E87.4 Mixed disorder of acid-base balance; E87.0 Hyperosmolality and hypernatremia; B37.0 Candidal stomatitis; E87.1 Hypo-osmolality and hyponatremia; J98.11 Atelectasis; E83.39 Other disorders of phosphorus metabolism; E10.22 Type 1 diabetes mellitus with diabetic chronic kidney disease; E87.8 Other disorders of electrolyte and fluid balance, not elsewhere classified; Z79.4 Long term (current) use of insulin; Z20.822 Contact with and (suspected) exposure to COVID-19; E87.5 Hyperkalemia; R00.1 Bradycardia, unspecified; R68.0 Hypothermia, not associated with low environmental temperature; N18.9 Chronic kidney disease, unspecified; E86.0 Dehydration; D75.89 Other specified diseases of blood and blood-forming organs; E87.6 Hypokalemia; H55.00 Unspecified nystagmus; E87.70 Fluid overload, unspecified; Z98.890 Other specified postprocedural states
CPT/HCPCS: 31500; 36415; 36556; 36600; 51702; 70450; 71045; 76770; 76937; 77001; 80048; 80051; 80053; 81001; 82009; 82533; 82565; 82803; 82805; 82947; 83605; 83735; 84100; 84132; 84520; 85025; 85027; 86704; 86706; 87040; 87070; 87205; 87324; 87340; 87635; 93005; 94002; 94003; 94760; 96361; 96374; 96375; 99291

== ENCOUNTER → 2024-03-02 | Outpatient (CLI) | payer BC ==
[2024-03-02 19:37] LABS: T4, Free (Free Thyroxine) 1.32 ng/dL (0.80-1.80)
== END | disposition home or self-care (01) ==
LOC: LABWHC1 15:25
PROVIDERS: ATTEND Obstetrics & Gynecology
DX: Z13.29 Encounter for screening for other suspected endocrine disorder (principal); E55.9 Vitamin D deficiency, unspecified; R74.01 Elevation of levels of liver transaminase levels
CPT/HCPCS: 36415; 82306; 84439; 84443; 84450; 84460